=== PATIENT | female | born 1955 | race Caucasian/White ===

== ENCOUNTER 2016-10-22 14:57 | Inpatient (IN) | payer OTHER ==
[2016-10-22 14:57] VITALS: BMI 32.9
[2016-10-22] MEDS ORDERED: Sodium Chloride 0.9% 1,000 ML IV ONE ×2 (15:44)
--- NOTE | 2016-10-22 16:28 | RAD ---
HISTORY: Sepsis Patient COMPARISON: None available. TECHNIQUE: Chest, one view. FINDINGS: Examination limited by habitus. LUNGS: Interstitial prominence may reflect infection or edema. Left lower lobe consolidation and or pleural effusion. No definite pneumothorax. Please note that chest x-ray has limited sensitivity for the detection of pulmonary masses. CARDIOVASCULAR: Cardiomegaly. OSSEOUS STRUCTURES: No acute osseous abnormality identified. VISUALIZED UPPER ABDOMEN: Unremarkable. OTHER FINDINGS: None. IMPRESSION: Interstitial prominence may reflect infection or edema. Left lower lobe consolidation and or pleural effusion. Cardiomegaly.
[2016-10-22] MEDS ORDERED: Moxifloxacin IV 400mg/250ml NS 400 MG/250 ML BAG IVPB STA (16:38)
[2016-10-22] MEDS ORDERED: Cefepime IV 2 gm in Dextrose 2 GM/100 ML BAG IVPB STA (16:38)
[2016-10-22 16:40] LABS: VENOUS BLOOD GAS BASE EXCESS -1.1 mmol/L (0.0-2.0); VENOUS BLOOD GAS PCO2 34 mmHg (40-60); VENOUS BLOOD PH 7.43 (7.32-7.43)
--- NOTE | 2016-10-22 16:42 | C.PDOC ---
History Of Present Illness 61-year-old female, presents to the emergency department with complaints of fever. Patient states she was at Dr Power office, at the infusion center getting her first dose of chemotherapy for newly diagnosed metastatic breast CA , when she developed diaphoresis and weakness, resulting in her being brought to the ED for evaluation. Denies nausea/vomiting, dizziness, back pain, headaches, or any other associated symptoms. No other complaints at this time. Time Seen by Provider: 10/22/16 15:25 Chief Complaint (Nursing): Medical Clearance History Per: Patient History/Exam Limitations: no limitations Onset/Duration Of Symptoms: Hrs Current Symptoms Are (Timing): Still Present Severity: Moderate Reports Recently: Treated By A Physician Past Medical History Reviewed: Historical Data, Nursing Documentation, Vital Signs Vital Signs: Last Vital Signs Temp 98.5 F 10/22/16 17:30 Pulse 109 H 10/22/16 20:13 Resp 22 10/22/16 20:13 BP 140/90 10/22/16 20:13 Pulse Ox 98 10/22/16 20:13 - Medical History PMH: Arthritis, HTN Denies: End Stage Renal Disease, Chronic Kidney Disease Surgical History: Appendectomy - [facility] Procedures EXCISION OF RIGHT LOBE LIVER, PERCUTANEOUS APPROACH, DIAGN (06/15/16) Family History: States: No Known Family Hx - Social History Hx Alcohol Use: Yes Hx Substance Use: No - Immunization History Hx Tetanus Toxoid Vaccination: No Hx Influenza Vaccination: No Hx Pneumococcal Vaccination: No Review Of Systems Except As Marked, All Systems Reviewed And Found Negative. Constitutional: Positive for: Fever, Weakness Cardiovascular: Negative for: Chest Pain, Palpitations Respiratory: Negative for: Shortness of Breath Gastrointestinal: Negative for: Nausea, Vomiting Musculoskeletal: Negative for: Back Pain Neurological: Negative for: Numbness, Headache, Dizziness Physical Exam - Physical Exam Appears: Non-toxic, No Acute Distress Skin: Warm, Dry, No Rash Head: Atraumatic, Normacephalic Eye(s): bilateral: Normal Inspection Nose: Normal Oral Mucosa: Moist Lips: Normal Appearing Neck: Normal ROM Chest: Symmetrical Cardiovascular: Rhythm Regular, No Murmur Respiratory: Decreased Breath Sounds (B/L), No Accessory Muscle Use Gastrointestinal/Abdominal: Soft, No Tenderness Extremity: Normal ROM ED Course And Treatment - Laboratory Results Result Diagrams: 10/22/16 16:39 10/22/16 16:39 O2 Sat by Pulse Oximetry: 95 Medical Decision Making Medical Decision Making: Pt remained stable in the ED Discussed with dr Israel, pt had dramatic reaction in the infusion center, not likely due to the Chemo recommended medical admission CXR abnormal mass but with ?infiltrate above Cultures sent, abx maxipen and avalox ordered Post cefepine pt reported redness of the chest and back, no wheezing or itching Treated with benadryl Case discused with dr Cohen, pt admitted to hospitalist Disposition - Disposition Disposition: HOSPITALIZED Disposition Time: 19:43 Condition: FAIR - Clinical Impression Clinical Impression: Metastatic cancer to liver, Sepsis, Medication reaction - Scribe Statement The provider has reviewed the documentation as recorded by the Belindaibyvonne Tsang All medical record entries made by the Belindaibyvonne were at my direction and personally dictated by me. I have reviewed the chart and agree that the record accurately reflects my personal performance of the history, physical exam, medical decision making, and the department course for this patient. I have also personally directed, reviewed, and agree with the discharge instructions and disposition.
[2016-10-22 16:50] LABS: HEMATOCRIT 37.6 % (34.0-47.0); LYMPH # 0.3 K/uL (1.0-4.3); MEAN CELL VOLUME 92.5 fL (81.0-99.0); MEAN CORPUSCULAR HEMOGLOBIN 30.1 pg (27.0-31.0); MEAN CORPUSCULAR HGB CONC 32.5 g/dL (33.0-37.0); MEAN PLATELET VOLUME 9.3 fL (7.2-11.7); MONO # 0.2 K/uL (0.0-0.8); MONO % 1.9 % (0.0-10.0); PLATELET COUNT 200 K/uL (130-400); RED CELL DISTRIBUTION WIDTH 15.1 % (11.5-14.5); WHITE BLOOD COUNT 9.1 K/uL (4.8-10.8)
[2016-10-22 17:00] LABS: CHLORIDE 104 mmol/L (98-107)
[2016-10-22 17:01] LABS: POTASSIUM 3.9 mmol/L (3.6-5.2); SODIUM 135 mmol/L (132-148)
[2016-10-22 17:03] LABS: ALB/GLOB RATIO 0.8 (1.0-2.1); AST/SGOT 213 U/L (14-36); BILIRUBIN,TOTAL 0.7 mg/dL (0.2-1.3); BLOOD UREA NITROGEN 24 mg/dL (7-17); CARBON DIOXIDE 23 mmol/L (22-30); GFR AFRICAN-AMERICAN > 60; TOTAL PROTEIN 6.8 g/dL (6.3-8.3)
[2016-10-22 17:04] LABS: ALKALINE PHOSPHATASE 269 U/L (38-126); ALT/SGPT 113 U/L (9-52); CALCIUM 8.4 mg/dl (8.6-10.4); GLUCOSE,RANDOM 106 mg/dL (65-105)
[2016-10-22] MEDS ORDERED: Moxifloxacin IV 400mg/250ml NS 400 MG/250 ML BAG IVPB ONE (18:49)
[2016-10-22 18:57] LABS: LARGE PLATELETS PRESENT; NEUTROPHIL 92 % (50-75); SMUDGE CELLS PRESENT; TOTAL CELLS COUNTED 100
[2016-10-22] MEDS ORDERED: DiphenhydrAMINE 50 mg/ml Inj ONE (19:24)
[2016-10-22] MEDS ORDERED: DiphenhydrAMINE 50 mg/ml Inj IVP STA ×2 (19:26→19:37)
[2016-10-22 19:39] LABS: VENOUS BLOOD GAS BASE EXCESS -2.7 mmol/L (0.0-2.0); VENOUS BLOOD GAS PCO2 31 mmHg (40-60); VENOUS BLOOD PH 7.43 (7.32-7.43)
[2016-10-22 19:51] LABS: RBC URINE < 1 /hpf (0-3); URINE BACTERIA RARE (<OCC); URINE BILIRUBIN NEGATIVE (NEGATIVE); URINE BLOOD NEGATIVE (NEGATIVE); URINE COLOR Straw (YELLOW); URINE GLUCOSE (UA) NORMAL (Normal); URINE KETONE NEGATIVE (NEGATIVE); URINE LEUKOCYTE ESTERASE NEG Leu/uL (Negative); URINE PROTEIN NEGATIVE (NEGATIVE); URINE UROBILINOGEN NORMAL mg/dL (0.2-1.0); WBC URINE < 1 /hpf (0-5)
--- NOTE | 2016-10-22 19:59 | CP.PCM.HP ---
<Loulou Justin - Last Filed: 10/22/16 23:52> History of Present Illness - History of Present Illness History of Present Illness: CC: I felt weak HPI: 61 F PMHx of breast ca (dx 6 years ago) s/p L lumpectomy 2012 with mets to liver and spine, and HTN presents with diaphoresis and weakness that occurred when receiving chemotherapy at Dr. Power office. As per [facility] discharge note patient was admitted in June 2016 and found to have mets in T10 and L4 region on MRI and liver biopsy showed metastatic cancer- Patient was receiving radiation therapy at that time. This afternoon patient was at the [facility] receiving chemotherapy and began to feel hot, diaphoretic, and "shaky" and felt like her blood pressure was elevated. She was feeling lightheaded and weak and was told to come in to the ER. Patient denied any fever, chills, headache, dizziness, change in vision/hearing, sore throat, dysphagia, chest pain, palpitations, SOB, nausea, vomiting, bowel/bladder complaints, swelling in her legs, easy bruising/bleeding, weight/appetite changes. Patient admitted to having body aches and pain in her hips and back that she associates with her ca mets and rates 5/10. She also has a lot of "gas" and continuous burping that she is unable to control but does not have much flatus. Patient's last BM was day of admission and last meal was earlier in the day. Patient has also had a dry cough for the past day but no associated SOB. She admits to heat intolerance , lightheadedness, nonproductive cough, weakness, abdominal pain, leg pain, back pain, and a rash that developed in the ED after patient was given a bag of Cefepime [patient did not know she was allergic to cefepime]. She also had sick contacts at home as her daughter and grandchildren had a common cold. PMHx: breast ca (dx 6 years ago), liver ca with mets (dx 3 mo ago), HTN PSHx: L breast lumpectomy 2012 and ALL: Cefepime, honey, octopus Medications: omeprazole 40mg po daily, dexamethasone 4mg, protonix 40mg po daily Social Hx: denies EtOH, tobacco, drugs. Used to work at a home Family Hx: kidney and stomach ca [brother], breast ca [mother], CVA [father] [place] [facility] [place]D: doesn't know name ROS: Denies fever, chills, headache, dizziness, change in vision/hearing, sore throat, dysphagia, chest pain, palpitations, SOB, nausea, vomiting, bowel/ bladder complaints, swelling in her legs, easy bruising/bleeding, weight/ appetite changes. Admits heat intolerance, lightheadedness, nonproductive cough, weakness, abdominal pain, leg pain, back pain, and a rash that developed in the ED after patient was given a bag of Cefepime Present on Admission - Present on Admission Any Indicators Present on Admission: No Review of Systems - Constitutional Constitutional: As Per HPI, Weakness. absent: Chills, Fever, Weight Gain, Weight Loss - EENT Eyes: As Per HPI. absent: Change in Vision Ears: As Per HPI. absent: Tinnitus, Dizziness Nose/Mouth/Throat: absent: As Per HPI, Post Nasal Drip, Sore Throat - Cardiovascular Cardiovascular: As Per HPI. absent: Chest Pain, Dyspnea, Edema, Palpitations - Respiratory Respiratory: As Per HPI, Cough. absent: Dyspnea on Exertion, Wheezing, Chest Congestion - Gastrointestinal Gastrointestinal: As Per HPI, Abdominal Pain, Belching. absent: Constipation, Cramping, Diarrhea, Dysphagia, Excessive Flatus, Nausea, Vomiting - Genitourinary Genitourinary: As Per HPI. absent: Dysuria, Hematuria, Pyuria, Urinary Frequency - Musculoskeletal Musculoskeletal: As Per HPI, Back Pain, Myalgias. absent: Numbness, Tingling - Integumentary Integumentary: As Per HPI, Rash. absent: Dry Skin - Neurological Neurological: As Per HPI. absent: Confusion, Dizziness, Headaches, Syncope, Tingling - Psychiatric Psychiatric: As Per HPI. absent: Anxiety, Depression - Endocrine Endocrine: As Per HPI, Flushing. absent: Palpitations, Polydipsia, Polyphagia, Polyuria - Hematologic/Lymphatic Hematologic: As Per HPI. absent: Easy Bleeding, Easy Bruising, Lymphadenopathy Past Patient History - Past Social History Smoking Status: Current Some Days Smoker - CARDIAC Hx Hypertension: Yes - PULMONARY Hx Respiratory Disorders: No - NEUROLOGICAL Hx Neurological Disorder: No - HEENT Hx HEENT Problems: No - RENAL Hx Chronic Kidney Disease: No - ENDOCRINE/METABOLIC Hx Endocrine Disorders: No - HEMATOLOGICAL/ONCOLOGICAL Hx Blood Disorders: Yes Hx Cancer: Yes (Breast with mets to liver, Rt rib, spine) - INTEGUMENTARY Hx Dermatological Problems: No - MUSCULOSKELETAL/RHEUMATOLOGICAL Hx Arthritis: Yes - GASTROINTESTINAL Hx Gastrointestinal Disorders: Yes Hx Gastroesophageal Reflux: Yes - GENITOURINARY/GYNECOLOGICAL Hx Genitourinary Disorders: No - PSYCHIATRIC Hx Substance Use: No - SURGICAL HISTORY Hx Appendectomy: Yes - ANESTHESIA Hx Anesthesia: Yes Meds Allergies/Adverse Reactions: Allergies Allergy/AdvReac Type Severity Reaction Status Date / Time cefepime [From Maxipime] Allergy REDNESS Verified 10/22/16 19:29 honey Allergy Verified 10/22/16 15:18 octopus Allergy ANAPHYLAXIS Verified 06/14/16 21:46 Physical Exam - Constitutional Appears: Non-toxic, No Acute Distress - Head Exam Head Exam: ATRAUMATIC, NORMAL INSPECTION, NORMOCEPHALIC - Eye Exam Eye Exam: EOMI, Normal appearance, PERRL. absent: Conjunctival injection, Scleral icterus Pupil Exam: NORMAL ACCOMODATION, PERRL - ENT Exam ENT Exam: Mucous Membranes Moist - Neck Exam Neck exam: Positive for: Full Rom, Normal Inspection. Negative for: Lymphadenopathy, Tenderness - Respiratory Exam Respiratory Exam: Clear to Auscultation Bilateral, NORMAL BREATHING PATTERN. absent: Accessory Muscle Use, Rales, Rhonchi, Wheezes, Respiratory Distress - Cardiovascular Exam Cardiovascular Exam: Tachycardia, REGULAR RHYTHM, +S1, +S2. absent: Systolic Murmur - GI/Abdominal Exam GI & Abdominal Exam: Normal Bowel Sounds, Soft. absent: Distended, Firm, Guarding, Rigid, Tenderness - Extremities Exam Extremities exam: Positive for: normal capillary refill, normal inspection, pedal pulses present. Negative for: pedal edema, tenderness - Back Exam Back exam: NORMAL INSPECTION, rash noted (upper back erythematous). absent: CVA tenderness (L), CVA tenderness (R) - Neurological Exam Neurological exam: Alert, CN II-XII Intact, Oriented x3 - Psychiatric Exam Psychiatric exam: Normal Affect, Normal Mood - Skin Skin Exam: Dry, Erythema, Intact, Rash (drug rash on upper torso and upper back - sparing extremities and abdomen), Warm Results - Vital Signs Recent Vital Signs: Last Vital Signs Temp 98.5 F 10/22/16 17:30 Pulse 119 H 10/22/16 19:30 Resp 22 10/22/16 19:30 BP 150/96 H 10/22/16 19:30 Pulse Ox 95 10/22/16 19:44 - Labs Result Diagrams: 10/22/16 16:39 10/22/16 16:39 Assessment & Plan - Assessment and Plan (Free Text) Assessment: 61 F PMHx of breast ca (dx 6 years ago) s/p L lumpectomy 2012 with mets to liver and spine, and HTN presents with diaphoresis and weakness that occurred when receiving chemotherapy at Dr. Power office Plan: Weakness -likely secondary to infectious process -Temp on admission: 100.2F -CXR: interstitial prominence may reflect infection/edema. L lower lobe consolidation and/or pleural effusion. -procalcitonin: 5.07 -VBG lactate on admission 2.4 --> repeat 1.5 -f/u Chest CT w/o contrast -f/u blood cultures -f/u urine cultures -CTA : negative for PE -Avelox 400mg ivpb q24 -NS @ 100cc/hr Breast ca with mets -CT Abdomen/pelvis with IV contrast: findings within liver and bones consistent with diffuse mets -transaminitis likely secondary to mets AST 213 ALT 113 Alk Phos 269 -Heme/onc: Dr. Israel PPX -Heparin 5000u sc q12 -Protonix 40mg po daily -SCDs -Regular diet Case discussed with Dr. Roland Justin PGY1 <Deshawn Watkins P - Last Filed: 10/28/16 10:58> Results - Vital Signs Recent Vital Signs: Last Vital Signs Temp 98.4 F 10/27/16 15:00 Pulse 94 H 10/27/16 15:00 Resp 20 10/27/16 15:00 BP 128/81 10/27/16 15:00 Pulse Ox 95 10/27/16 15:00 - Labs Result Diagrams: 10/27/16 06:21 10/27/16 06:21 Attending/Attestation - Attestation I have personally seen and examined this patient.: Yes I have fully participated in the care of the patient.: Yes I have reviewed all pertinent clinical information: Yes
[2016-10-22] MEDS: Moxifloxacin IV 400mg/250ml NS 400 MG/250 ML BAG IVPB SCH (21:46)
[2016-10-22] MEDS ORDERED: Iodixanol 320 MG/ML 100 ML BOTTLE IV ONE (22:00)
--- NOTE | 2016-10-22 22:49 | CT ---
EXAM: CT Angiography Chest With Intravenous Contrast CLINICAL HISTORY: 61 years old, female; Pain; Chest pain; Type not specified; Patient HX: Breast ca; Additional info: R/O pe TECHNIQUE: Axial computed tomographic angiography images of the chest with intravenous contrast using pulmonary embolism protocol. This CT exam was performed using one or more of the following dose reduction techniques: automated exposure control, adjustment of the mA and/or kV according to patient size, and/or use of iterative reconstruction technique. MIP reconstructed images were created and reviewed. Coronal and sagittal reformatted images were created and reviewed. CONTRAST: 100 mL of VISIPAQUE 320 administered intravenously. COMPARISON: No relevant prior studies available. FINDINGS: Pulmonary arteries: No pulmonary embolism. Aorta: No thoracic aortic aneurysm. Lungs: Moderate left-sided pleural effusion, with adjacent compressive atelectasis. Innumerable subcentimeter nodules within the bilateral lung martinez (left greater than right) suggesting metastatic disease. Pleural spaces: As above. Heart: No cardiomegaly. No significant pericardial effusion. No evidence of right heart dysfunction. Bones: No acute fracture. Expansile lesion is identified within the posterior right 10th rib and the lateral right fourth rib. Lymph nodes: Multiple mediastinal lymph nodes identified, the largest within the aortopulmonary window measuring 16 mm in short axis dimension. The or IMPRESSION: No pulmonary embolism. Findings within both the lungs and bones suggesting metastatic disease. Moderate left-sided pleural effusion, with adjacent compressive atelectasis.
[2016-10-22] MEDS: Sodium Chloride 0.9% 1,000 ML IV SCH (23:07)
--- NOTE | 2016-10-22 23:08 | CT ---
EXAM: CT Abdomen and Pelvis With Intravenous Contrast CLINICAL HISTORY: 61 years old, female; Pain; Abdominal pain; Flank; Right upper quadrant (ruq); Additional info: Elevated lfts TECHNIQUE: Axial computed tomography images of the abdomen and pelvis with intravenous contrast. This CT exam was performed using one or more of the following dose reduction techniques: automated exposure control, adjustment of the mA and/or kV according to patient size, and/or use of iterative reconstruction technique. Coronal and sagittal reformatted images were created and reviewed. CONTRAST: 0 mL of VISIPAQUE 320 administered intravenously. COMPARISON: No relevant prior studies available. FINDINGS: Lower thorax: Moderate left-sided pleural effusion, with adjacent compressive atelectasis. Again identified are innumerable pulmonary parenchymal nodules, better evaluated on the CT examination of the chest. In addition, expansile lytic lesions within the right lower ribs. ABDOMEN: Liver: Multiple areas of decreased attenuation are identified within the liver, findings consistent with metastatic disease. Gallbladder and bile ducts: The gallbladder is decompressed, without calcified stones. No significant intra- or extrahepatic biliary ductal dilation. Pancreas: Enhances homogeneously. No ductal dilation. No discrete mass. Spleen: No acute findings. Adrenals: No acute findings. Kidneys and ureters: No acute findings. No hydronephrosis or renal calculi. No discrete solid mass. PELVIS: Bladder: No acute findings. Reproductive: No acute findings. Appendix: The appendix is of normal caliber (series 3, image 112). ABDOMEN and PELVIS: Stomach and bowel: No obstruction. No mucosal thickening. Peritoneum: No significant fluid collection. No free air. Lymph nodes: No pathologically enlarged lymph nodes. Vasculature: Calcified atherosclerotic disease. Bones: Multiple lytic lesions within the right hemipelvis, and sacrum. Multiple lytic and blastic lesions are identified throughout the lumbosacral spine, as well as within the lower thoracic spine. This is most prominent at the levels of L4, L2 and T10. IMPRESSION: Findings within the both the liver, and bones consistent with diffuse metastatic disease, as detailed above.
[2016-10-23 01:22] VITALS: RESP 20
[2016-10-23 06:14] LABS: BASO % 0.1 % (0.0-2.0); EOS % 0.2 % (0.0-4.0); HEMATOCRIT 34.5 % (34.0-47.0); LYMPH # 0.7 K/uL (1.0-4.3); LYMPH % 8.8 % (20.0-40.0); MEAN CELL VOLUME 91.9 fL (81.0-99.0); MEAN CORPUSCULAR HEMOGLOBIN 30.6 pg (27.0-31.0); MEAN CORPUSCULAR HGB CONC 33.3 g/dL (33.0-37.0); MEAN PLATELET VOLUME 9.2 fL (7.2-11.7); MONO # 0.3 K/uL (0.0-0.8); MONO % 3.9 % (0.0-10.0); PLATELET COUNT 175 K/uL (130-400); RED CELL DISTRIBUTION WIDTH 15.2 % (11.5-14.5); WHITE BLOOD COUNT 8.4 K/uL (4.8-10.8)
[2016-10-23 06:45] LABS: CHLORIDE 106 mmol/L (98-107); POTASSIUM 3.9 mmol/L (3.6-5.2); SODIUM 137 mmol/L (132-148)
[2016-10-23 06:47] LABS: BILIRUBIN,TOTAL 0.6 mg/dL (0.2-1.3); GFR AFRICAN-AMERICAN > 60
[2016-10-23 06:48] LABS: ALB/GLOB RATIO 0.7 (1.0-2.1); ALKALINE PHOSPHATASE 230 U/L (38-126); ALT/SGPT 103 U/L (9-52); AST/SGOT 182 U/L (14-36); BLOOD UREA NITROGEN 18 mg/dL (7-17); CALCIUM 7.8 mg/dl (8.6-10.4); CARBON DIOXIDE 24 mmol/L (22-30); GLUCOSE,RANDOM 101 mg/dL (65-105); PHOSPHOROUS 3.3 mg/dL (2.5-4.5); TOTAL PROTEIN 6.2 g/dL (6.3-8.3)
[2016-10-23 06:49] LABS: MAGNESIUM 1.7 mg/dL (1.6-2.3)
--- NOTE | 2016-10-23 07:22 | CP.PCM.PN ---
<Rebecca Jimenez - Last Filed: 10/23/16 13:13> Subjective - Date & Time of Evaluation Date of Evaluation: 10/23/16 Time of Evaluation: 07:18 - Subjective Subjective: Patient seen and examined at bedside. Patient reports coughing since yesterday is still present. She denies fever/chills overnight but admits to fever yesterday during chemotherapy. She continues to feel weak. Patient admits to pain to left breast. She states she has intermittent pain with walking due to bone mets. Patient also states she has belching present since she was treated with radiotherapy. She denies shortness of breath, palpitations, abdominal pain , vomiting, constipation, diarrhea, dysuria and lower extremity swelling. Patient admits to mild nausea. She states she typically eats small meals. Objective - Vital Signs/Intake and Output Vital Signs (last 24 hours): Temp Pulse Resp BP Pulse Ox 98.5 F 100 H 20 145/88 98 10/23/16 00:00 10/23/16 00:00 10/23/16 00:00 10/23/16 00:00 10/23/16 01:05 Intake and Output: 10/23/16 10/23/16 06:59 18:59 Intake Total 980 Balance 980 - Medications Medications: Current Medications Heparin Sodium (Porcine) (Heparin) 5,000 units SC Q12 [facility] Last Admin: 10/22/16 23:06 Dose: 5,000 units Moxifloxacin HCl (Avelox Iv 400mg/250ml Ns) 400 mg in 250 mls @ 167 mls/hr IVPB Q24H [facility] Last Admin: 10/22/16 21:46 Dose: Not Given Sodium Chloride (Sodium Chloride 0.9%) 1,000 mls @ 100 mls/hr IV .Q10H [facility] Last Admin: 10/22/16 23:07 Dose: 100 mls/hr Pantoprazole Sodium (Protonix Ec Tab) 40 mg PO DAILY [facility] - Labs Labs: 10/23/16 05:58 10/23/16 05:58 PT 10.7 SECONDS (9.7-12.2) 10/22/16 16:39 INR 1.0 10/22/16 16:39 APTT 26 SECONDS (21-34) 10/23/16 05:58 - Constitutional Appears: Non-toxic, No Acute Distress - Head Exam Head Exam: ATRAUMATIC, NORMAL INSPECTION, NORMOCEPHALIC - Eye Exam Eye Exam: EOMI, Normal appearance, PERRL - ENT Exam ENT Exam: Mucous Membranes Moist - Respiratory Exam Respiratory Exam: Decreased Breath Sounds. absent: Rales, Rhonchi, Wheezes Additional comments: decreased breath sounds to left lung martinez - Cardiovascular Exam Cardiovascular Exam: Tachycardia, +S1, +S2. absent: Bradycardia - GI/Abdominal Exam GI & Abdominal Exam: Soft, Normal Bowel Sounds. absent: Guarding, Rigid, Tenderness - Extremities Exam Extremities Exam: Normal Inspection. absent: Pedal Edema, Tenderness - Neurological Exam Neurological Exam: Alert, Awake, Oriented x3 - Psychiatric Exam Psychiatric exam: Normal Affect, Normal Mood Assessment and Plan - Assessment and Plan (Free Text) Assessment: Weakness -Temp on admission: 100.2F. Currently afebrile -Chest CT w/o contrast: Lungs and bones suggest metastatic disease. Innumerable subcentimeter nodules to bilateral lungs, L>R. Moderate left sided pleural effusion (see full report) -CXR: interstitial prominence may reflect infection/edema. L lower lobe consolidation and/or pleural effusion. -Thoracentesis performed today - 500cc straw colored fluid. Pleural fluid sent for cytology, cell differentiation, LDH, total protein, albumin, amylase, CEA -procalcitonin: 5.07. Will recheck procalcitonin, -VBG lactate on admission 2.4 --> repeat 1.5 -f/u blood cultures -urine cultures - no growth -UA: negative -CTA : negative for PE -Avelox 400mg ivpb q24 -NS @ 100cc/hr Breast ca with mets -CT Abdomen/pelvis with IV contrast: findings within liver and bones consistent with diffuse mets -transaminitis likely secondary to mets AST 182 ALT 103 Alk Phos 230 -Palliative Care Consult -Heme/onc: Dr. Israel PPX -Heparin 5000u sc q12 -Protonix 40mg po daily -SCDs -Regular diet -PT/OT <Cesar Gill H - Last Filed: 10/23/16 16:41> Objective - Vital Signs/Intake and Output Vital Signs (last 24 hours): Temp Pulse Resp BP Pulse Ox 98.6 F 81 20 154/89 H 97 10/23/16 08:01 10/23/16 08:01 10/23/16 08:01 10/23/16 08:01 10/23/16 08:01 Intake and Output: 10/23/16 10/23/16 06:59 18:59 Intake Total 980 Balance 980 - Medications Medications: Current Medications Moxifloxacin HCl (Avelox Iv 400mg/250ml Ns) 400 mg in 250 mls @ 167 mls/hr IVPB Q24H [facility] Last Admin: 10/22/16 21:46 Dose: Not Given Sodium Chloride (Sodium Chloride 0.9%) 1,000 mls @ 100 mls/hr IV .Q10H [facility] Last Admin: 10/23/16 09:27 Dose: Not Given Morphine Sulfate (Morphine) 1 mg IVP Q4 PRN PRN Reason: Pain, moderate (4-7) Last Admin: 10/23/16 13:44 Dose: 1 mg Ondansetron HCl (Zofran Inj) 4 mg IVP Q6H PRN PRN Reason: Nausea/Vomiting Pantoprazole Sodium (Protonix Ec Tab) 40 mg PO DAILY [facility] Last Admin: 10/23/16 11:23 Dose: 40 mg - Labs Labs: 10/23/16 05:58 10/23/16 05:58 PT 10.7 SECONDS (9.7-12.2) 10/22/16 16:39 INR 1.0 10/22/16 16:39 APTT 26 SECONDS (21-34) 10/23/16 05:58 Attending/Attestation - Attestation I have personally seen and examined this patient.: Yes I have fully participated in the care of the patient.: Yes I have reviewed all pertinent clinical information, including history, physical exam and plan: Yes Notes (Text): 10/23/16 16:39 Medical attending: Patient was seen and examined by me, agrees the above note by medical staff director. The patient explains that she's been short of breath for some time, and she has dyspnea on exertion as well as coughing. Review of the CAT scan shows that she does have a pleural effusion on the left-hand side. When we saw her in the morning there were already orders for a thoracentesis to be done reporting additional orders for cytology sputum culture and further analysis of the fluid. Later on the afternoon I learned that 500 mL was removed, at this time were to see how the patient does after this. Were continue with the IV anti-biotics. She is on slow intravenous fluids and recheck further chest imaging tomorrow as well Thank you very much, Cesar Gill
[2016-10-23 08:14] LABS: EOSINOPHIL 1 % (0-4); NEUTROPHIL 89 % (50-75); TOTAL CELLS COUNTED 100
--- NOTE | 2016-10-23 09:23 | CON ---
DATE: 10/23/2016 This is a 61-year-old lady with breast cancer, metastatic to her bones and to her liver. In 2011, debra russell had her mastectomy, which found a 2.5 cm cancer, positive lymph node, ER positive, PA negative and HER-2 +3. She received in [place] a mastectomy followed by radiation therapy followed by Aromasin ch emotherapy; however, she really did not get the chemotherapy and she really did not take the Aromasin . She was lost to followup, until she came to [place] and 08/10/2016 I saw her then and she was i n severe pain through her lumbar spine. At that time, we gave her radiation therapy to the lumbar sp ine. In 10/22/2016 she had her first dose of Perjeta and Herceptin. So, she was being treated after the radiation therapy with hormonal agents including Faslodex but she did not respond, her cancer wa s progressing and so yesterday we started her on her first dose of Perjeta and Herceptin chemotherapy . She took it well, but at the very end of the procedure, she started developing shaking chills and started developing a fever. The blood pressure started dropping from about 160/102 to about 110 syst olic and she was starting to get cold and clammy. We called the ambulance and we brought her to the hospital here. PHYSICAL EXAMINATION: SKIN: No petechiae, no bruises. HEENT: Anicteric. NODES: None palpable in the axillary, cervical, supraclavicular or inguinal regions. LUNGS: Show no vertebral tenderness. There are decreased breath sounds bilaterally. HEART: S1, S2, no irregular heart rhythm. ABDOMEN: Shows severe tenderness in the right upper quadrant and you can feel the liver metastases w ith a mass, but no ascites, no rebound. EXTREMITIES: No edema. CENTRAL NERVOUS SYSTEM: No focal finding. 1. So at this point, we are ruling out a septic event. We are waiting for blood cultures while she is on her antibiotics. 2. She is short of breath all the time. There is a large pleural effusion on the CT scan that was j ust done. The CT scan yesterday is revealing a left-sided pleural effusion with atelectasis, innumer able parenchymal nodules in the lung, expansile lytic lesions in the right lower ribs and multiple ar eas of liver metastases. So at this point while she is here in the hospital, we are going to see if interventional radiology can do a thoracentesis and see if we can help her breathe. So at this point , we are going to do that. 3. She absolutely needs to have a social service evaluation to get Medicaid. We are able to get her medicines and her chemotherapy in the office for free, but she absolutely has to get Medicaid and debra russell was scheduled to go to the Medicaid office today this morning, but she is now in the hospital and I want to see if we can try and push that through. 4. I stopped the heparin, it is prophylaxis anyway, because I want to have her go for the procedure later on today if possible. Dimitris Israel MD cc: [id number] TT: 10/23/2016 09:21:53 Confirmation # [id number] Dictation # [id number] luis alberto
[2016-10-23] MEDS: Sodium Chloride 0.9% 1,000 ML IV SCH ×2 (09:27→17:44)
[2016-10-23] MEDS: Pantoprazole 40 mg EC Tab PO SCH (11:23)
--- NOTE | 2016-10-23 11:45 | US ---
PROCEDURE: Date of procedure: 10/23/2016 Procedure: 1. Ultrasound-guided left thoracentesis, CPT 73485 Medications: 7cc 1% Lidocaine HISTORY: Left pleural effusion, shortness of breath TECHNIQUE: Following informed consent ,the Patients' left chest was marked. Procedure time-out was called, and the patient was placed in the sitting position and limited ultrasound showed a moderate left effusion. The patient's left back was prepped and draped in the usual sterile fashion. After the skin was anesthetized with lidocaine, a drainage catheter was advanced under ultrasound guidance into the pleural space. Ultrasound-guided thoracentesis was performed. A total of 500 cubic centimeters of straw-colored fluid removed without complication. A Xeroform dressing was applied. IMPRESSION: Ultrasound guided left thoracentesis. There were no immediate complications.
[2016-10-23 12:47] LABS: BODY FLUID TYPE PLEURAL/THORACENTESI
--- NOTE | 2016-10-23 13:09 | PCM.SURG1 ---
Surgeon's Initial Post Op Note - Surgeon's Notes Surgeon: Alfonso Baum MD [employer]: NONE Type of Anesthesia: Local Pre-Operative Diagnosis: Left pleural effusion Operative Findings: US showed moderate left effusion Post-Operative Diagnosis: Left pleural effusion Operation Performed: US guided left thoracentesis. Specimen/Specimens Removed: 500 cc of straw colored fluid Estimated Blood Loss: EBL {In ML}: 0 Blood Products Given: N/A Drains Used: No Drains Post-Op Condition: Fair Date of Surgery/Procedure: 10/23/16 Time of Surgery/Procedure: 11:45
[2016-10-23 13:44] LABS: BF GROSS APPEARANCE SL CLOUDY (CLEAR); BODY FLUID TOTAL COUNT 100 (0-0)
--- NOTE | 2016-10-23 16:27 | CP.PCM.CON ---
History of Present Illness - History of Present Illness History of Present Illness: Palliative consult Requested by Katiuska RHODES Reason: goals of care, code status Patient is a 61 yo lady admitted with fever and diaphoresis while in Infusion center. Patient was in remission from breast cancer for 6 years. Now is diagnosed with mets to liver and lungs, confirmed by CT scan and 1st round of chemo started by Doctor Jhonatan. PMH: breast CA 6 years ago, arthritis, HTN, Soc. Hx: , lives at home with her daughter and her 4 grandchildren Fam Hx: brother from cancer Review of Systems - Constitutional Constitutional: Fatigue - EENT Eyes: absent: As Per HPI, Blind Spots, Blurred Vision, Change in Vision, Decreased Night Vision, Diplopia, Discharge, Dry Eye, Exophthalmos, Floaters, Irritation, Itchy Eyes, Loss of Peripheral Vision, Pain, Photophobia, Requires Corrective Lenses, Sees Flashes, Spots in Vision, Tunnel Vision, Other Visual Disturbances, Loss of Vision, Other Ears: absent: As Per HPI, Decreased Hearing, Ear Discharge, Ear Pain, Tinnitus, Abnormal Hearing, Disequilibrium, Dizziness, Other Nose/Mouth/Throat: absent: As Per HPI, Epistaxis, Nasal Congestion, Nasal Discharge, Nasal Obstruction, Nasal Trauma, Nose Pain, Post Nasal Drip, Sinus Pain, Sinus Pressure, Bleeding Gums, Change in Voice, Dental Pain, Dry Mouth, Dysphagia, Halitosis, Hoarsness, Lip Swelling, Mouth Lesions, Mouth Pain, Odynophagia, Sore Throat, Throat Swelling, Tongue Swelling, Facial Pain, Neck Pain, Neck Mass, Other - Breasts Breasts: absent: As Per HPI, Change in Shape, Mass, Pain, Nipple Discharge, Nipple Inversion, Skin Changes, Swelling, Other - Cardiovascular Cardiovascular: absent: As Per HPI, Acrocyanosis, Chest Pain, Chest Pain at Rest , Chest Pain with Activity, Claudication, Diaphoresis, Dyspnea, Dyspnea on Exertion, Edema, Irregular Heart Rhythm, Pain Radiating to Arm/Neck/Jaw, Leg Edema, Leg Ulcers, Lightheadedness, Orthopnea, Palpitations, Paroxysmal Nocturnal Dyspnea, Pedal Edema, Radiating Pain, Rapid Heart Rate, Slow Heart Rate, Syncope, Other - Respiratory Respiratory: Dyspnea on Exertion - Gastrointestinal Gastrointestinal: Belching, Bloating - Genitourinary Genitourinary: absent: As Per HPI, Change in Urinary Stream, Difficulty Urinating, Dysuria, Flank Pain, Hematuria, Pyuria, Nocturia, Urinary Incontinence, Urinary Frequency, Urinary Hesitance, Urinary Urgency, Voiding Freq/Small Amts, Freq UTI, Hx Renal/Bladder Calculi, Hx /Renal Surgery, Bladder Distension, Other - Reproductive: Female Reproductive:Female: Post Menopausal - Menstruation Menstruation: Post Menopausal - Musculoskeletal Musculoskeletal: Muscle Weakness - Integumentary Integumentary: absent: As Per HPI, Acne, Alopecia, Bleeding Lesions, Change in Hair, Change in Nails, Change in Pigmentation, Changing Lesions, Dry Skin, Erythema, Furuncle, Hirsutism, Lesions, New Lesions, Non-Healing Lesions, Photosensitivity, Pruritus, Rash, Skin Pain, Skin Ulcer, Sores, Striae, Swelling , Unusual Bruising, Wounds, Jaundice, Other - Neurological Neurological: absent: As Per HPI, Abnormal Gait, Abnormal Hearing, Abnormal Movements, Abnormal Speech, Behavioral Changes, Burning Sensations, Confusion, Convulsions, Disequilibrium, Dizziness, Numbness, Focal Weakness, Frequent Falls , Headaches, Lack of Coordination, Loss of Vision, Memory Loss, Paresthesias, Radicular Pain, Restless Legs, Sensory Deficit, Syncope, Tingling, Tremor, Vertigo, Weakness, Other Visual Disturbances, Other - Psychiatric Psychiatric: absent: As Per HPI, Abnormal Sleep Pattern, Anhedonia, Anxiety, Auditory Hallucinations, Behavioral Changes, Change in Appetite, Change in Libido, Confusion, Depression, Difficulty Concentrating, Hallucinations, Homicidal Ideation, Hopelessness, Irritability, Memory Loss, Mood Swings, Panic Attacks, Paranoia, Suicidal Ideation, Visual Hallucinations, Tactile Hallucinations, Other - Endocrine Endocrine: absent: As Per HPI, Change in Body Appearance, Change in Libido, Cold Intolorance, Deepening of Voice, Excessive Sweating, Fatigue, Flushing, Heat Intolorance, Increase in Ring/Shoe/Hat Size, Palpitations, Polydipsia, Polyphagia, Polyuria, Other - Hematologic/Lymphatic Hematologic: absent: As Per HPI, Easy Bleeding, Easy Bruising, Lymphadenopathy, Other Past Patient History - Past Medical History & Family History Past Medical History?: Yes - Past Social History Smoking Status: Unknown If Ever Smoked - CARDIAC Hx Cardiac Disorders: Yes Hx Hypertension: Yes - PULMONARY Hx Respiratory Disorders: No - NEUROLOGICAL Hx Neurological Disorder: No - HEENT Hx HEENT Problems: No - RENAL Hx Chronic Kidney Disease: No - ENDOCRINE/METABOLIC Hx Endocrine Disorders: No - HEMATOLOGICAL/ONCOLOGICAL Hx Blood Disorders: Yes Hx Cancer: Yes (Breast with mets to liver, Rt rib, spine) - INTEGUMENTARY Hx Dermatological Problems: No - MUSCULOSKELETAL/RHEUMATOLOGICAL Hx Musculoskeletal Disorders: Yes Hx Arthritis: Yes Hx Falls: No - GASTROINTESTINAL Hx Gastrointestinal Disorders: Yes Hx Gastroesophageal Reflux: Yes - GENITOURINARY/GYNECOLOGICAL Hx Genitourinary Disorders: No - PSYCHIATRIC Hx Psychophysiologic Disorder: No Hx Substance Use: No - SURGICAL HISTORY Hx Surgeries: Yes Hx Appendectomy: Yes - ANESTHESIA Hx Anesthesia: Yes Hx Anesthesia Reactions: No Hx Malignant Hyperthermia: No Has any member of the family had a problem w/ anesthesia?: No Meds Allergies/Adverse Reactions: Allergies Allergy/AdvReac Type Severity Reaction Status Date / Time cefepime [From Maxipime] Allergy REDNESS Verified 10/22/16 19:29 honey Allergy Verified 10/22/16 15:18 octopus Allergy ANAPHYLAXIS Verified 06/14/16 21:46 - Medications Medications: Current Medications Moxifloxacin HCl (Avelox Iv 400mg/250ml Ns) 400 mg in 250 mls @ 167 mls/hr IVPB Q24H [facility] Last Admin: 10/22/16 21:46 Dose: Not Given Sodium Chloride (Sodium Chloride 0.9%) 1,000 mls @ 100 mls/hr IV .Q10H [facility] Last Admin: 10/23/16 09:27 Dose: Not Given Morphine Sulfate (Morphine) 1 mg IVP Q4 PRN PRN Reason: Pain, moderate (4-7) Last Admin: 10/23/16 13:44 Dose: 1 mg Ondansetron HCl (Zofran Inj) 4 mg IVP Q6H PRN PRN Reason: Nausea/Vomiting Pantoprazole Sodium (Protonix Ec Tab) 40 mg PO DAILY [facility] Last Admin: 10/23/16 11:23 Dose: 40 mg Physical Exam - Constitutional Appears: Chronically Ill - Head Exam Head Exam: ATRAUMATIC, NORMAL INSPECTION, NORMOCEPHALIC - Eye Exam Eye Exam: EOMI, Normal appearance, PERRL Pupil Exam: NORMAL ACCOMODATION, PERRL - ENT Exam ENT Exam: Mucous Membranes Moist, Normal Exam - Neck Exam Neck exam: Positive for: Normal Inspection - Respiratory Exam Respiratory Exam: Decreased Breath Sounds, NORMAL BREATHING PATTERN - Cardiovascular Exam Cardiovascular Exam: REGULAR RHYTHM - GI/Abdominal Exam GI & Abdominal Exam: Distended, Hypoactive Bowel Sounds - Rectal Exam Rectal Exam: Deferred - Extremities Exam Extremities exam: Positive for: normal inspection - Back Exam Back exam: NORMAL INSPECTION - Neurological Exam Neurological exam: Alert, Oriented x3 - Psychiatric Exam Psychiatric exam: Normal Affect, Normal Mood - Skin Skin Exam: Normal Color Results - Vital Signs Recent Vital Signs: Last Vital Signs Temp 98.6 F 10/23/16 08:01 Pulse 81 10/23/16 08:01 Resp 20 10/23/16 08:01 BP 154/89 H 10/23/16 08:01 Pulse Ox 97 10/23/16 08:01 - Labs Result Diagrams: 10/23/16 05:58 10/23/16 05:58 Labs: Laboratory Results - last 24 hr 10/22/16 10/23/16 10/23/16 22:08 05:58 05:58 WBC 8.4 RBC 3.75 L Hgb 11.5 Hct 34.5 MCV 91.9 MCH 30.6 MCHC 33.3 RDW 15.2 H Plt Count 175 MPV 9.2 Neut % (Auto) 87.0 H Lymph % (Auto) 8.8 L [place] % (Auto) 3.9 Eos % (Auto) 0.2 Baso % (Auto) 0.1 Neut # 7.3 H Lymph # 0.7 L [place] # 0.3 Eos # 0.0 Baso # 0.0 Neutrophils % (Manual) 89 H Lymphocytes % (Manual) 10 L Monocytes % (Manual) TEST NOT PERFORMED Eosinophils % (Manual) 1 Platelet Estimate Normal Anisocytosis (manual) Slight APTT Sodium 137 Potassium 3.9 Chloride 106 Carbon Dioxide 24 Anion Gap 12 BUN 18 H Creatinine 0.7 Est GFR ( Amer) > 60 Est GFR (Non-Af Amer) > 60 Random Glucose 101 Calcium 7.8 L Phosphorus 3.3 Magnesium 1.7 Total Bilirubin 0.6 AST 182 H ALT 103 H Alkaline Phosphatase 230 H Total Protein 6.2 L Albumin 2.6 L Globulin 3.6 Albumin/Globulin Ratio 0.7 L Procalcitonin 5.07 H Fluid Source Fluid Appearance Fluid WBC Fluid RBC Fluid Tot Cell Count Fluid Neutrophils Fluid Lymphocytes Fld Monocyte/Macrophag Fluid Diff Path Review Fluid Comment 10/23/16 10/23/16 05:58 12:46 WBC RBC Hgb Hct MCV MCH MCHC RDW Plt Count MPV Neut % (Auto) Lymph % (Auto) [place] % (Auto) Eos % (Auto) Baso % (Auto) Neut # Lymph # [place]ord # Eos # Baso # Neutrophils % (Manual) Lymphocytes % (Manual) Monocytes % (Manual) Eosinophils % (Manual) Platelet Estimate Anisocytosis (manual) APTT 26 Sodium Potassium Chloride Carbon Dioxide Anion Gap BUN Creatinine Est GFR ( Amer) Est GFR (Non-Af Amer) Random Glucose Calcium Phosphorus Magnesium Total Bilirubin AST ALT Alkaline Phosphatase Total Protein Albumin Globulin Albumin/Globulin Ratio Procalcitonin Fluid Source Pleural/thoracentesi Fluid Appearance Sl cloudy Fluid WBC 341.0 H Fluid RBC 3885.0 H Fluid Tot Cell Count 100 H Fluid Neutrophils 35.0 H Fluid Lymphocytes 61.0 H Fld Monocyte/Macrophag 4 H Fluid Diff Path Review Fluid Comment Assessment & Plan - Assessment and Plan (Free Text) Assessment: Palliative consult Code status prior to admission , Full Code, no advance directive on chart, PPS 30% I reviewed medical records, all diagnostic studies, examined and interviewed. Code status discussed. POLST completed Patient is alert, oriented X 3 in no acute distress with affect that is appropriate. S/P thoracentesis. Abdominal distenton. Patient burps constantly, saying that has been going on for while. Complains of right shoulder pain radiating down to right hip. Reports right leg edema while at home, resolved now. Goals of care discussed. Patient fully aware of her diagnosis and prognosis. " Doctor Jhonatan told me it is bad". I further discussed what were patient's expectations. Her main goal is her comfort. Patient stated she accepted her alyssa . Strong preferences regarding end of life care. patient was clear that she would want all ordinary measures including the chemo Tx. If her condition worsens and meaningful recovery was not expected, she would want to be allowed natural . patient made no surrogate decision maker. POLST signed. Impression * This is a very unfortunate lady with metastasis disease, fully aware of it * Patient has accepted her prognosis and prefers comfort over longevity * Right shoulder pain radiating down to right hip * Distended abdomen, denies constipation Suggestion * Agree with DNR/DNI * POLST on chart * Would consider Morphine Iv for pain * Discharge planing Thank you very much for consulting palliative care
[2016-10-23] MEDS: Moxifloxacin IV 400mg/250ml NS 400 MG/250 ML BAG IVPB SCH (21:16)
[2016-10-24 06:18] LABS: BASO % 0.2 % (0.0-2.0); EOS % 0.6 % (0.0-4.0); HEMATOCRIT 35.1 % (34.0-47.0); LYMPH # 0.8 K/uL (1.0-4.3); LYMPH % 13.9 % (20.0-40.0); MEAN CORPUSCULAR HEMOGLOBIN 30.1 pg (27.0-31.0); MEAN PLATELET VOLUME 9.1 fL (7.2-11.7); MONO # 0.3 K/uL (0.0-0.8); MONO % 4.5 % (0.0-10.0); RED CELL DISTRIBUTION WIDTH 15.3 % (11.5-14.5); WHITE BLOOD COUNT 5.7 K/uL (4.8-10.8)
[2016-10-24 06:36] LABS: CHLORIDE 101 mmol/L (98-107)
[2016-10-24 06:37] LABS: POTASSIUM 3.8 mmol/L (3.6-5.2); SODIUM 133 mmol/L (132-148)
[2016-10-24 06:39] LABS: ALB/GLOB RATIO 0.9 (1.0-2.1); ALKALINE PHOSPHATASE 221 U/L (38-126); AST/SGOT 137 U/L (14-36); BILIRUBIN,TOTAL 0.7 mg/dL (0.2-1.3); BLOOD UREA NITROGEN 15 mg/dL (7-17); CARBON DIOXIDE 23 mmol/L (22-30); GFR AFRICAN-AMERICAN > 60; TOTAL PROTEIN 5.8 g/dL (6.3-8.3)
[2016-10-24 06:40] LABS: ALT/SGPT 82 U/L (9-52); CALCIUM 7.9 mg/dl (8.6-10.4); GLUCOSE,RANDOM 92 mg/dL (65-105); MAGNESIUM 1.7 mg/dL (1.6-2.3)
[2016-10-24] MEDS: Pantoprazole 40 mg EC Tab PO SCH (09:01)
--- NOTE | 2016-10-24 09:53 | CP.PCM.PN ---
<DanielBina Kim - Last Filed: 10/24/16 09:36> Subjective - Date & Time of Evaluation Date of Evaluation: 10/24/16 Time of Evaluation: 06:30 - Subjective Subjective: PGY2 Medicine note - Dr. Gill's service: Patient seen and examined at bedside this AM. Patient reports continued cough. Otherwise she has no complaints. Objective - Vital Signs/Intake and Output Vital Signs (last 24 hours): Temp Pulse Resp BP Pulse Ox 99 F 97 H 20 120/75 95 10/24/16 00:00 10/24/16 00:00 10/24/16 00:00 10/24/16 00:00 10/24/16 00:00 Intake and Output: 10/24/16 10/24/16 06:59 18:59 Intake Total 1200 240 Balance 1200 240 - Medications Medications: Current Medications Guaifenesin (Robitussin) 100 mg PO Q4H PRN PRN Reason: Cough Moxifloxacin HCl (Avelox Iv 400mg/250ml Ns) 400 mg in 250 mls @ 167 mls/hr IVPB Q24H [facility] Last Admin: 10/23/16 21:16 Dose: 167 mls/hr Morphine Sulfate (Morphine) 1 mg IVP Q4 PRN PRN Reason: Pain, moderate (4-7) Last Admin: 10/23/16 19:51 Dose: 1 mg Ondansetron HCl (Zofran Inj) 4 mg IVP Q6H PRN PRN Reason: Nausea/Vomiting Last Admin: 10/23/16 19:51 Dose: 4 mg Pantoprazole Sodium (Protonix Ec Tab) 40 mg PO DAILY [facility] Last Admin: 10/24/16 09:01 Dose: 40 mg - Labs Labs: 10/24/16 06:13 10/24/16 06:13 PT 10.7 SECONDS (9.7-12.2) 10/22/16 16:39 INR 1.0 10/22/16 16:39 APTT 26 SECONDS (21-34) 10/23/16 05:58 - Constitutional Appears: Non-toxic, No Acute Distress - Head Exam Head Exam: NORMAL INSPECTION - Eye Exam Eye Exam: EOMI - ENT Exam ENT Exam: Mucous Membranes Moist - Respiratory Exam Respiratory Exam: Rales, NORMAL BREATHING PATTERN. absent: Accessory Muscle Use , Respiratory Distress - Cardiovascular Exam Cardiovascular Exam: REGULAR RHYTHM, +S1, +S2. absent: Gallop, Rubs, Murmur - GI/Abdominal Exam GI & Abdominal Exam: Soft, Normal Bowel Sounds. absent: Tenderness - Extremities Exam Extremities Exam: absent: Pedal Edema - Neurological Exam Neurological Exam: Alert, Oriented x3 - Psychiatric Exam Psychiatric exam: Normal Affect, Normal Mood - Skin Skin Exam: Normal Color, Warm Assessment and Plan - Assessment and Plan (Free Text) Assessment: Weakness -Temp on admission: 100.2F. Currently afebrile -Chest CT w/o contrast: Lungs and bones suggest metastatic disease. Innumerable subcentimeter nodules to bilateral lungs, L>R. Moderate left sided pleural effusion (see full report) -CXR: interstitial prominence may reflect infection/edema. L lower lobe consolidation and/or pleural effusion. -Thoracentesis performed today - 500cc straw colored fluid. Pleural fluid sent for cytology, cell differentiation, LDH, total protein, albumin, amylase, CEA -procalcitonin: 5.07. Will recheck procalcitonin, -VBG lactate on admission 2.4 --> repeat 1.5 -blood cultures negative x 24 hours -urine cultures - no growth -UA: negative -CTA : negative for PE -Avelox 400mg ivpb q24 -NS @ 100cc/hr - discontinued today as patient is eating and drinking well Pleural Effusion Thoracentesis yesterday - 500cc removed F/U pleural fluid tests Robitussin ordered for cough Breast CA with mets -CT Abdomen/pelvis with IV contrast: findings within liver and bones consistent with diffuse mets -transaminitis likely secondary to mets AST 182 ALT 103 Alk Phos 230 -Palliative Care Consult -Heme/onc: Dr. Israel PPX -Heparin 5000u sc q12 -Protonix 40mg po daily -SCDs -Regular diet -PT/OT -Palliative care consult - DNR/ DNI, POLST completed, patient wants all ordinary measures including chemo <Cesar Gill H - Last Filed: 10/24/16 11:04> Objective - Vital Signs/Intake and Output Vital Signs (last 24 hours): Temp Pulse Resp BP Pulse Ox 99 F 97 H 20 120/75 95 10/24/16 00:00 10/24/16 00:00 10/24/16 00:00 10/24/16 00:00 10/24/16 00:00 Intake and Output: 10/24/16 10/24/16 06:59 18:59 Intake Total 1200 240 Balance 1200 240 - Medications Medications: Current Medications Guaifenesin (Robitussin) 100 mg PO Q4H PRN PRN Reason: Cough Moxifloxacin HCl (Avelox Iv 400mg/250ml Ns) 400 mg in 250 mls @ 167 mls/hr IVPB Q24H [facility] Last Admin: 10/23/16 21:16 Dose: 167 mls/hr Morphine Sulfate (Morphine) 1 mg IVP Q4 PRN PRN Reason: Pain, moderate (4-7) Last Admin: 10/23/16 19:51 Dose: 1 mg Ondansetron HCl (Zofran Inj) 4 mg IVP Q6H PRN PRN Reason: Nausea/Vomiting Last Admin: 10/23/16 19:51 Dose: 4 mg Pantoprazole Sodium (Protonix Ec Tab) 40 mg PO DAILY [facility] Last Admin: 10/24/16 09:01 Dose: 40 mg - Labs Labs: 10/24/16 06:13 10/24/16 06:13 PT 10.7 SECONDS (9.7-12.2) 10/22/16 16:39 INR 1.0 10/22/16 16:39 APTT 26 SECONDS (21-34) 10/23/16 05:58 Attending/Attestation - Attestation I have personally seen and examined this patient.: Yes I have fully participated in the care of the patient.: Yes I have reviewed all pertinent clinical information, including history, physical exam and plan: Yes Notes (Text): 10/24/16 11:00 Medical Attending: Patient was seen and examined by me. Agree with the above note by the resident. We saw the patient together. The patient was not in any acute distress. Breathing was about the same she said despite removal of 500cc reported. Currently pending the results of the pleural fluid analysis. Explained to the patient there is likeyhood that it is malignant in nature thank you Cesar Gill
[2016-10-24] MEDS ORDERED: Magnesium Hydroxide Susp 30 ml UD PO ONE (16:30)
[2016-10-24] MEDS: Moxifloxacin IV 400mg/250ml NS 400 MG/250 ML BAG IVPB SCH (20:22)
[2016-10-25 07:24] LABS: BASO % 0.5 % (0.0-2.0); EOS % 1.1 % (0.0-4.0); HEMATOCRIT 37.5 % (34.0-47.0); LYMPH # 0.8 K/uL (1.0-4.3); LYMPH % 19.3 % (20.0-40.0); MEAN CELL VOLUME 91.3 fL (81.0-99.0); MEAN CORPUSCULAR HGB CONC 32.8 g/dL (33.0-37.0); MEAN PLATELET VOLUME 9.2 fL (7.2-11.7); MONO # 0.3 K/uL (0.0-0.8); MONO % 6.5 % (0.0-10.0); NRBC % 0.1 % (0.0-2.0); RED CELL DISTRIBUTION WIDTH 15.2 % (11.5-14.5); WHITE BLOOD COUNT 4.2 K/uL (4.8-10.8)
[2016-10-25 07:32] LABS: CHLORIDE 101 mmol/L (98-107); SODIUM 136 mmol/L (132-148)
[2016-10-25 07:33] LABS: POTASSIUM 3.7 mmol/L (3.6-5.2)
[2016-10-25 07:34] LABS: GFR AFRICAN-AMERICAN > 60
[2016-10-25 07:35] LABS: ALB/GLOB RATIO 0.9 (1.0-2.1); ALKALINE PHOSPHATASE 241 U/L (38-126); ALT/SGPT 67 U/L (9-52); AST/SGOT 117 U/L (14-36); BILIRUBIN,TOTAL 0.9 mg/dL (0.2-1.3); BLOOD UREA NITROGEN 12 mg/dL (7-17); CARBON DIOXIDE 28 mmol/L (22-30); GLUCOSE,RANDOM 94 mg/dL (65-105); TOTAL PROTEIN 6.1 g/dL (6.3-8.3)
[2016-10-25 07:36] LABS: CALCIUM 8.3 mg/dl (8.6-10.4)
--- NOTE | 2016-10-25 08:39 | CARD ---
APPROVED REPORT EKG Measurement Heart [id number] <Conclusion> Sinus tachycardia Possible Anterior infarct, age undetermined Abnormal ECG
[2016-10-25] MEDS: Pantoprazole 40 mg EC Tab PO SCH (08:59)
[2016-10-25] MEDS: guaiFENesin 100 mg/5 ml Syrup UD PO PRN ×2 (10:39→16:36)
[2016-10-25] MEDS: Moxifloxacin IV 400mg/250ml NS 400 MG/250 ML BAG IVPB SCH (20:14)
[2016-10-26 06:14] LABS: BASO % 0.3 % (0.0-2.0); EOS # 0.1 K/uL (0.0-0.7); EOS % 1.1 % (0.0-4.0); HEMATOCRIT 36.8 % (34.0-47.0); LYMPH # 0.9 K/uL (1.0-4.3); LYMPH % 19.7 % (20.0-40.0); MEAN CELL VOLUME 90.9 fL (81.0-99.0); MONO # 0.5 K/uL (0.0-0.8); RED CELL DISTRIBUTION WIDTH 15.1 % (11.5-14.5); WHITE BLOOD COUNT 4.7 K/uL (4.8-10.8)
[2016-10-26 06:50] LABS: CHLORIDE 101 mmol/L (98-107); SODIUM 134 mmol/L (132-148)
[2016-10-26 06:51] LABS: POTASSIUM 3.9 mmol/L (3.6-5.2)
[2016-10-26 06:53] LABS: ALB/GLOB RATIO 0.8 (1.0-2.1); ALKALINE PHOSPHATASE 240 U/L (38-126); AST/SGOT 74 U/L (14-36); BILIRUBIN,TOTAL 0.7 mg/dL (0.2-1.3); BLOOD UREA NITROGEN 12 mg/dL (7-17); CARBON DIOXIDE 26 mmol/L (22-30); GFR AFRICAN-AMERICAN > 60; TOTAL PROTEIN 6.2 g/dL (6.3-8.3)
[2016-10-26 06:54] LABS: ALT/SGPT 61 U/L (9-52); CALCIUM 8.3 mg/dl (8.6-10.4); GLUCOSE,RANDOM 86 mg/dL (65-105); MAGNESIUM 1.9 mg/dL (1.6-2.3)
--- NOTE | 2016-10-26 08:15 | CON ---
DATE: 10/26/2016 This is a 61-year-old woman with widespread metastatic breast cancer to her liver and to her bones. She is feeling somewhat better after the interventional procedure, 500 mL of pleural fluid was remove d. She remains weak, but relatively stable and afebrile. Very critical is for her to speak to [employer] service about getting on Medicaid. She was supposed to go to the Medicaid office last week, but wa s admitted to the hospital before she could go there, but this is very critical and if it could be fa cilitated and pushed through, that would be very helpful and that way we could give her the chemother apy. We have already started her and gotten her free medication for Herceptin and Perjeta, but we ca nnot get the chemotherapy unless she gets Medicaid. She should be able to go home soon. She is more stable now. The blood counts are reasonable and she is afebrile and so I think after she sees the s ial service to help her with the Medicaid, she should be able to go home soon. We will be able to restart her on the chemotherapy hopefully this week. Interestingly enough, the liver function tests are improving. It was 182 on admission. The AST is now 74 and the ALT 103 is now down to 61. Maybe it is due to the chemotherapy we started already. Dimitris Israel MD cc: [id number] TT: 10/26/2016 08:15:14 Confirmation # [id number] Dictation # [id number]
[2016-10-26] MEDS: Pantoprazole 40 mg EC Tab PO SCH (09:44)
--- NOTE | 2016-10-26 17:44 | CP.PCM.PN ---
<Rosita Hughes - Last Filed: 10/26/16 19:52> Subjective - Date & Time of Evaluation Date of Evaluation: 10/26/16 Time of Evaluation: 17:44 - Subjective Subjective: Medicine Progress notes- Dr. Felder service: Patient was seen and examined at bedside this morning in no acute distress. Patient still compalins of cough with white sputum. Patient reports still having epigastric discomfort and gas/burping. Her last bowel movement was yesterday. Patient denies chest pain, palpitations, nausea, vomiting, and dizziness. Objective - Vital Signs/Intake and Output Vital Signs (last 24 hours): Temp Pulse Resp BP Pulse Ox 99.1 F 98 H 20 134/89 94 L 10/26/16 15:00 10/26/16 15:00 10/26/16 15:00 10/26/16 15:00 10/26/16 15:00 Intake and Output: 10/26/16 10/26/16 06:59 18:59 Intake Total 350 200 Balance 350 200 - Medications Medications: Current Medications Docusate Sodium (Colace) 100 mg PO BID [facility] Last Admin: 10/26/16 09:43 Dose: 100 mg Guaifenesin (Robitussin) 100 mg PO Q4H PRN PRN Reason: Cough Last Admin: 10/25/16 16:36 Dose: 100 mg Heparin Sodium (Porcine) (Heparin) 5,000 units SC Q8 [facility] Last Admin: 10/26/16 14:32 Dose: 5,000 units Moxifloxacin HCl (Avelox Iv 400mg/250ml Ns) 400 mg in 250 mls @ 167 mls/hr IVPB Q24H [facility] Last Admin: 10/25/16 20:14 Dose: 167 mls/hr Morphine Sulfate (Morphine) 1 mg IVP Q4 PRN PRN Reason: Pain, moderate (4-7) Last Admin: 10/25/16 22:29 Dose: 1 mg Ondansetron HCl (Zofran Inj) 4 mg IVP Q6H PRN PRN Reason: Nausea/Vomiting Last Admin: 10/25/16 16:38 Dose: 4 mg Pantoprazole Sodium (Protonix Ec Tab) 40 mg PO DAILY [facility] Last Admin: 10/26/16 09:44 Dose: 40 mg - Labs Labs: 10/26/16 06:04 10/26/16 06:04 PT 10.7 SECONDS (9.7-12.2) 10/22/16 16:39 INR 1.0 10/22/16 16:39 APTT 26 SECONDS (21-34) 10/23/16 05:58 - Constitutional Appears: Non-toxic, No Acute Distress - Head Exam Head Exam: NORMAL INSPECTION, NORMOCEPHALIC - Eye Exam Eye Exam: EOMI, Normal appearance - ENT Exam ENT Exam: Mucous Membranes Moist - Neck Exam Neck Exam: Full ROM, Normal Inspection - Respiratory Exam Respiratory Exam: NORMAL BREATHING PATTERN. absent: Accessory Muscle Use, Respiratory Distress Additional comments: cough with respirations - Cardiovascular Exam Cardiovascular Exam: REGULAR RHYTHM, +S1, +S2 - GI/Abdominal Exam GI & Abdominal Exam: Soft, Normal Bowel Sounds. absent: Distended, Tenderness - Extremities Exam Extremities Exam: absent: Calf Tenderness, Pedal Edema, Tenderness - Neurological Exam Neurological Exam: Alert, Awake, Oriented x3 - Psychiatric Exam Psychiatric exam: Normal Affect, Normal Mood - Skin Skin Exam: Dry, Normal Color, Warm Assessment and Plan (1) Weakness Assessment & Plan: Patient with BCA and widespread metastatic disease. Weakness likely secondary to pleural effusion and chemo treatments s/p thoracentesis 500 cc on 10/23/16. Patient feeling better after fluid removed. procalcitonin: 5.07. Will recheck procalcitonin, VBG lactate on admission 2.4 --> repeat 1.5 blood cultures 10/22 negative x 4 days urine cultures 10/22 - no growth UA: negative CTA : negative for PE Avelox 400mg ivpb q24- day 5 Dr. Israel-Heme/onc consult placed- help appreciated -As per Dr. Israel, patient should be discharged to continue outpatient chemo -Follow up with [facility]. TCU recommended. Imaging: Chest CT w/o contrast: Lungs and bones suggest metastatic disease. Innumerable subcentimeter nodules to bilateral lungs, L>R. Moderate left sided pleural effusion (see full report) CXR: interstitial prominence may reflect infection/edema. L lower lobe consolidation and/or pleural effusion. Status: Acute (2) Malignant pleural effusion Assessment & Plan: Thoracentesis performed 10/23/16 - 500cc straw colored fluid. Pleural fluid: WBC 341; RBC 3885, Total cell count 100, Fluid neutrophils 35, fluid lymphocytes 61, fluid monocyte/macrophage 4; [id number], amylase 20, CEA 4076 Avelox 400mg ivpb q24- day 5 Continue Robitussin for cough Status: Acute (3) Breast cancer Assessment & Plan: Breast cancer with mets to lungs liver, and bones Dr. Israel-Heme/onc consult placed- help appreciated -As per Dr. Israel, patient should be discharged to continue outpatient chemo -Follow up with [facility]. TCU recommended. CT Abdomen/pelvis with IV contrast: findings within liver and bones consistent with diffuse mets Chest CT: findinging within lungs consistent with diffuse mets Status: Acute (4) Transaminitis Assessment & Plan: transaminitis likely secondary to mets LFTs improving, AST decreased from 182 on admission to 74, and ALT decreased from 103 on admission to 61 Status: Acute (5) Prophylactic measure Assessment & Plan: Heparin 5000u sc q8 -Protonix 40mg po daily -SCDs -Regular diet -PT/OT -Palliative care consult - DNR/ DNI, POLST completed, patient wants all ordinary measures including chemo Status: Acute <Luis Felder - Last Filed: 10/27/16 07:56> Objective - Vital Signs/Intake and Output Vital Signs (last 24 hours): Temp Pulse Resp BP Pulse Ox 98.6 F 100 H 20 112/71 98 10/27/16 06:00 10/27/16 00:00 10/27/16 00:00 10/27/16 00:00 10/27/16 00:00 Intake and Output: 10/27/16 10/27/16 06:59 18:59 Intake Total 850 Balance 850 - Medications Medications: Current Medications Docusate Sodium (Colace) 100 mg PO BID [facility] Last Admin: 10/26/16 17:52 Dose: 100 mg Guaifenesin (Robitussin) 100 mg PO Q4H PRN PRN Reason: Cough Last Admin: 10/25/16 16:36 Dose: 100 mg Heparin Sodium (Porcine) (Heparin) 5,000 units SC Q8 [facility] Last Admin: 10/27/16 06:09 Dose: 5,000 units Moxifloxacin HCl (Avelox Iv 400mg/250ml Ns) 400 mg in 250 mls @ 167 mls/hr IVPB Q24H [facility] Last Admin: 10/26/16 21:15 Dose: 167 mls/hr Morphine Sulfate (Morphine) 1 mg IVP Q4 PRN PRN Reason: Pain, moderate (4-7) Last Admin: 10/25/16 22:29 Dose: 1 mg Ondansetron HCl (Zofran Inj) 4 mg IVP Q6H PRN PRN Reason: Nausea/Vomiting Last Admin: 10/25/16 16:38 Dose: 4 mg Pantoprazole Sodium (Protonix Ec Tab) 40 mg PO DAILY [facility] Last Admin: 10/26/16 09:44 Dose: 40 mg - Labs Labs: 10/27/16 06:21 10/27/16 06:21 PT 10.7 SECONDS (9.7-12.2) 10/22/16 16:39 INR 1.0 10/22/16 16:39 APTT 26 SECONDS (21-34) 10/23/16 05:58 Attending/Attestation - Attestation I have personally seen and examined this patient.: Yes I have fully participated in the care of the patient.: Yes I have reviewed all pertinent clinical information, including history, physical exam and plan: Yes Notes (Text): 10/27/16 07:55 Patient was seen and examined at bedside This a late computer entry. She is status post paracentesis. She is feeling better now. Breathing is improved Oncology evaluation noted. Patient to follow-up for outpatient chemotherapy. Discussed with the case management and mental health social worker. Patient does not qualify for Medicaid at this time. Patient will be discharged to home because she will not be able to be placed in a rehabilitation per the case management Discharge planning likely in the next 24 hours if the patient is medically stable
[2016-10-26] MEDS: Moxifloxacin IV 400mg/250ml NS 400 MG/250 ML BAG IVPB SCH (21:15)
[2016-10-27 06:30] LABS: BASO % 0.4 % (0.0-2.0); EOS # 0.1 K/uL (0.0-0.7); EOS % 1.8 % (0.0-4.0); HEMATOCRIT 35.9 % (34.0-47.0); LYMPH % 25.6 % (20.0-40.0); MEAN CELL VOLUME 91.2 fL (81.0-99.0); MEAN CORPUSCULAR HEMOGLOBIN 30.4 pg (27.0-31.0); MEAN CORPUSCULAR HGB CONC 33.3 g/dL (33.0-37.0); MEAN PLATELET VOLUME 8.9 fL (7.2-11.7); MONO # 0.4 K/uL (0.0-0.8); MONO % 10.6 % (0.0-10.0); NRBC % 0.1 % (0.0-2.0); RED CELL DISTRIBUTION WIDTH 14.7 % (11.5-14.5); WHITE BLOOD COUNT 4.1 K/uL (4.8-10.8)
[2016-10-27 06:57] LABS: CHLORIDE 103 mmol/L (98-107)
[2016-10-27 06:58] LABS: POTASSIUM 4.2 mmol/L (3.6-5.2); SODIUM 136 mmol/L (132-148)
[2016-10-27 07:00] LABS: ALB/GLOB RATIO 0.9 (1.0-2.1); ALKALINE PHOSPHATASE 227 U/L (38-126); AST/SGOT 52 U/L (14-36); BILIRUBIN,TOTAL 0.7 mg/dL (0.2-1.3); CARBON DIOXIDE 26 mmol/L (22-30); GFR AFRICAN-AMERICAN > 60; TOTAL PROTEIN 6.4 g/dL (6.3-8.3)
[2016-10-27 07:01] LABS: ALT/SGPT 50 U/L (9-52); BLOOD UREA NITROGEN 11 mg/dL (7-17); CALCIUM 8.4 mg/dl (8.6-10.4); GLUCOSE,RANDOM 97 mg/dL (65-105); MAGNESIUM 2.1 mg/dL (1.6-2.3); PHOSPHOROUS 3.5 mg/dL (2.5-4.5)
--- NOTE | 2016-10-27 07:47 | CP.PCM.PN ---
Subjective - Date & Time of Evaluation Date of Evaluation: 10/27/16 Objective - Vital Signs/Intake and Output Vital Signs (last 24 hours): Temp Pulse Resp BP Pulse Ox 98.6 F 100 H 20 112/71 98 10/27/16 06:00 10/27/16 00:00 10/27/16 00:00 10/27/16 00:00 10/27/16 00:00 Intake and Output: 10/27/16 10/27/16 06:59 18:59 Intake Total 850 Balance 850 - Medications Medications: Current Medications Docusate Sodium (Colace) 100 mg PO BID [facility] Last Admin: 10/26/16 17:52 Dose: 100 mg Guaifenesin (Robitussin) 100 mg PO Q4H PRN PRN Reason: Cough Last Admin: 10/25/16 16:36 Dose: 100 mg Heparin Sodium (Porcine) (Heparin) 5,000 units SC Q8 [facility] Last Admin: 10/27/16 06:09 Dose: 5,000 units Moxifloxacin HCl (Avelox Iv 400mg/250ml Ns) 400 mg in 250 mls @ 167 mls/hr IVPB Q24H [facility] Last Admin: 10/26/16 21:15 Dose: 167 mls/hr Morphine Sulfate (Morphine) 1 mg IVP Q4 PRN PRN Reason: Pain, moderate (4-7) Last Admin: 10/25/16 22:29 Dose: 1 mg Ondansetron HCl (Zofran Inj) 4 mg IVP Q6H PRN PRN Reason: Nausea/Vomiting Last Admin: 10/25/16 16:38 Dose: 4 mg Pantoprazole Sodium (Protonix Ec Tab) 40 mg PO DAILY [facility] Last Admin: 10/26/16 09:44 Dose: 40 mg - Labs Labs: 10/27/16 06:21 10/27/16 06:21 PT 10.7 SECONDS (9.7-12.2) 10/22/16 16:39 INR 1.0 10/22/16 16:39 APTT 26 SECONDS (21-34) 10/23/16 05:58 Assessment and Plan (1) Weakness Status: Acute (2) Malignant pleural effusion Status: Acute (3) Breast cancer Status: Acute (4) Transaminitis Status: Acute (5) Prophylactic measure Status: Acute
[2016-10-27] MEDS: Pantoprazole 40 mg EC Tab PO SCH (09:40)
[2016-10-27] MEDS ORDERED: Aluminum Hydroxide/Magnesium Hydroxide Susp (30 mL) PO ONE (13:33)
--- NOTE | 2016-10-27 14:24 | CP.PCM.DIS ---
<Rosita Hughes - Last Filed: 10/27/16 20:33> Provider - Provider Date of Admission: 10/22/16 19:42 Attending physician: Luis Felder MD Primary care physician: none Consults: Hematology Oncology: Dr. Israel Palliative Care: Dr. Machado Time Spent in preparation of Discharge (in minutes): 45 Diagnosis - Discharge Diagnosis (1) Weakness Status: Resolved Comment: Likely secondary to Pleural Effusion. See below. (2) Malignant pleural effusion Status: Chronic Comment: S/P Thoracentesis 500cc removed by IR. (3) Breast cancer Status: Chronic Comment: Patient with metastatic disease to lungs, liver, and bones. Patient to continue outpatient chemotherapy as per Dr. Israel. (4) Transaminitis Status: Acute Comment: Improved during hospital stay. Hospital Course - Lab Results Lab Results: Micro Results 10/22/16 Unknown Urine,Clean Catch Urine Culture - Final No Growth (<1,000 CFU/ML) Most Recent Lab Values WBC 4.1 K/uL (4.8-10.8) L 10/27/16 06:21 RBC 3.94 Mil/uL (3.80-5.20) 10/27/16 06:21 Hgb 12.0 g/dL (11.0-16.0) 10/27/16 06:21 Hct 35.9 % (34.0-47.0) 10/27/16 06:21 MCV 91.2 fL (81.0-99.0) 10/27/16 06:21 MCH 30.4 pg (27.0-31.0) 10/27/16 06:21 MCHC 33.3 g/dL (33.0-37.0) 10/27/16 06:21 RDW 14.7 % (11.5-14.5) H 10/27/16 06:21 Plt Count 176 K/uL (130-400) 10/27/16 06:21 MPV 8.9 fL (7.2-11.7) 10/27/16 06:21 Neut % (Auto) 61.6 % (50.0-75.0) 10/27/16 06:21 Lymph % (Auto) 25.6 % (20.0-40.0) 10/27/16 06:21 Iron % (Auto) 10.6 % (0.0-10.0) H 10/27/16 06:21 Eos % (Auto) 1.8 % (0.0-4.0) 10/27/16 06:21 Baso % (Auto) 0.4 % (0.0-2.0) 10/27/16 06:21 Neut # 2.5 K/uL (1.8-7.0) 10/27/16 06:21 Lymph # 1.0 K/uL (1.0-4.3) 10/27/16 06:21 Iron # 0.4 K/uL (0.0-0.8) 10/27/16 06:21 Eos # 0.1 K/uL (0.0-0.7) 10/27/16 06:21 Baso # 0.0 K/uL (0.0-0.2) 10/27/16 06:21 Neutrophils % (Manual) 89 % (50-75) H 10/23/16 05:58 Band Neutrophils % 2 % (0-2) 10/22/16 16:39 Lymphocytes % (Manual) 10 % (20-40) L 10/23/16 05:58 Monocytes % (Manual) TEST NOT PERFORMED 10/23/16 05:58 Eosinophils % (Manual) 1 % (0-4) 10/23/16 05:58 Hypersegmented Polys Present 10/22/16 16:39 Smudge Cells Present 10/22/16 16:39 Platelet Estimate Normal (NORMAL) 10/23/16 05:58 Large Platelets Present 10/22/16 16:39 Hypochromasia (manual) Slight 10/22/16 16:39 Poikilocytosis (manual Slight 10/22/16 16:39 Anisocytosis (manual) Slight 10/23/16 05:58 PT 10.7 SECONDS (9.7-12.2) 10/22/16 16:39 INR 1.0 10/22/16 16:39 APTT 26 SECONDS (21-34) 10/23/16 05:58 pO2 59 mm/Hg (30-55) H 10/22/16 19:30 VBG pH 7.43 (7.32-7.43) 10/22/16 19:30 VBG pCO2 31 mmHg (40-60) L 10/22/16 19:30 VBG HCO3 22.6 mmol/L 10/22/16 19:30 VBG Total CO2 21.6 mmol/L (22-28) L 10/22/16 19:30 VBG O2 Sat (Calc) 92.2 % (40-65) H 10/22/16 19:30 VBG Base Excess -2.7 mmol/L (0.0-2.0) L 10/22/16 19:30 VBG Potassium 4.0 mmol/L (3.6-5.2) 10/22/16 19:30 Sodium 141.0 mmol/l (132-148) 10/22/16 19:30 Chloride 118.0 mmol/L (98-107) H 10/22/16 19:30 Glucose 108 mg/dl (65-105) H 10/22/16 19:30 Lactate 1.5 mmol/L (0.7-2.1) 10/22/16 19:30 Sodium 136 mmol/L (132-148) 10/27/16 06:21 Potassium 4.2 mmol/L (3.6-5.2) 10/27/16 06:21 Chloride 103 mmol/L (98-107) 10/27/16 06:21 Carbon Dioxide 26 mmol/L (22-30) 10/27/16 06:21 Anion Gap 11 (10-20) 10/27/16 06:21 BUN 11 mg/dL (7-17) 10/27/16 06:21 Creatinine 0.6 MG/DL (0.7-1.2) L 10/27/16 06:21 Est GFR ( Amer) > 60 10/27/16 06:21 Est GFR (Non-Af Amer) > 60 10/27/16 06:21 Random Glucose 97 mg/dL (65-105) 10/27/16 06:21 Calcium 8.4 mg/dl (8.6-10.4) L 10/27/16 06:21 Phosphorus 3.5 mg/dL (2.5-4.5) 10/27/16 06:21 Magnesium 2.1 mg/dL (1.6-2.3) 10/27/16 06:21 Total Bilirubin 0.7 mg/dL (0.2-1.3) 10/27/16 06:21 AST 52 U/L (14-36) H D 10/27/16 06:21 ALT 50 U/L (9-52) 10/27/16 06:21 Alkaline Phosphatase 227 U/L (38-126) H 10/27/16 06:21 Total Protein 6.4 g/dL (6.3-8.3) 10/27/16 06:21 Albumin 3.1 g/dL (3.5-5.0) L 10/27/16 06:21 Globulin 3.4 gm/dL (2.2-3.9) 10/27/16 06:21 Albumin/Globulin Ratio 0.9 (1.0-2.1) L 10/27/16 06:21 Procalcitonin 5.07 NG/ML (0.19-0.49) H 10/22/16 22:08 Venous Blood Potassium 4.0 mmol/L (3.6-5.2) 10/22/16 19:30 Urine Color Straw (YELLOW) 10/22/16 19:36 Urine Clarity Clear (Clear) 10/22/16 19:36 Urine pH 6.0 (5.0-8.0) 10/22/16 19:36 Ur Specific [place] 1.013 (1.003-1.030) 10/22/16 19:36 Urine Protein Negative mg/dL (NEGATIVE) 10/22/16 19:36 Urine Glucose (UA) Normal mg/dL (Normal) 10/22/16 19:36 Urine Ketones Negative mg/dL (NEGATIVE) 10/22/16 19:36 Urine Blood Negative (NEGATIVE) 10/22/16 19:36 Urine Nitrate Negative (NEGATIVE) 10/22/16 19:36 Urine Bilirubin Negative (NEGATIVE) 10/22/16 19:36 Urine Urobilinogen Normal mg/dL (0.2-1.0) 10/22/16 19:36 Ur Leukocyte Esterase Neg Cristopher/uL (Negative) 10/22/16 19:36 Urine WBC (Auto) < 1 /hpf (0-5) 10/22/16 19:36 Urine RBC (Auto) < 1 /hpf (0-3) 10/22/16 19:36 Ur Squamous Epith Cells < 1 /hpf (0-5) 10/22/16 19:36 Urine Bacteria Rare (<OCC) 10/22/16 19:36 Fluid Source Pleural/thoracentesi 10/23/16 12:46 Fluid Appearance Sl cloudy (CLEAR) 10/23/16 12:46 Fluid WBC 341.0 /mm3 (0.0-300.0) H 10/23/16 12:46 Fluid RBC 3885.0 /mm3 (0.0-0.0) H 10/23/16 12:46 Fluid Tot Cell Count 100 (0-0) H 10/23/16 12:46 Fluid Neutrophils 35.0 % (0-0) H 10/23/16 12:46 Fluid Lymphocytes 61.0 % (0-0) H 10/23/16 12:46 Fld Monocyte/Macrophag 4 % (0-0) H 10/23/16 12:46 Fluid Diff Path Review 10/23/16 12:46 Fluid Albumin 2.0 g/dL 10/23/16 13:45 Fluid Comment 10/23/16 12:46 Pleural LDH 383 U/L 10/23/16 13:45 Pleural Amylase 20 U/L 10/23/16 13:45 Pleural Fluid CEA 4076.8 ng/mL (<10.0) H 10/23/16 13:45 - Hospital Course Hospital Course: As per H&P "CC: I felt weak HPI: 61 F PMHx of breast ca (dx 6 years ago) s/p L lumpectomy 2012 with mets to liver and spine, and HTN presents with diaphoresis and weakness that occurred when receiving chemotherapy at Dr. Power office. As per [facility] discharge note patient was admitted in June 2016 and found to have mets in T10 and L4 region on MRI and liver biopsy showed metastatic cancer- Patient was receiving radiation therapy at that time. This afternoon patient was at the infusion center receiving chemotherapy and began to feel hot, diaphoretic, and "shaky" and felt like her blood pressure was elevated. She was feeling lightheaded and weak and was told to come in to the ER. Patient denied any fever, chills, headache, dizziness, change in vision/hearing, sore throat, dysphagia, chest pain, palpitations, SOB, nausea, vomiting, bowel/bladder complaints, swelling in her legs, easy bruising/bleeding, weight/appetite changes. Patient admitted to having body aches and pain in her hips and back that she associates with her ca mets and rates 5/10. She also has a lot of "gas" and continuous burping that she is unable to control but does not have much flatus. Patient's last BM was day of admission and last meal was earlier in the day. Patient has also had a dry cough for the past day but no associated SOB. She admits to heat intolerance , lightheadedness, nonproductive cough, weakness, abdominal pain, leg pain, back pain, and a rash that developed in the ED after patient was given a bag of Cefepime [patient did not know she was allergic to cefepime]. She also had sick contacts at home as her daughter and grandchildren had a common cold." In the ED, patient had a chest xray which showed "Interstitial prominence may reflect infection or edema. Left lower lobe consolidation and or pleural effusion. Cardiomegaly." Blood and Urine Cultures were ordered and were negative. Patient started Maxipime and Avalox. Patient developed a rash on chest and back post Maxipime administration. Maxipime was discontinued and patient received Benadryl. Rash resolved. IR consult was placed. Patient went for thoracentesis with removal of 500 cc. Results were positive with WBC 34, RBC 3885, Total cell count 100, Fluid neutrophils 35, fluid lymphocytes 61, fluid monocyte/macrophage 4, [id number], amylase 20, and CEA 4076. Patient started Avelox and Robitussin. Transaminitis found on admission likely secondary to metastatic disease. LFTs improved during hospital stay. Patient discharged to follow up with Dr. Israel to continue her outpatient chemotherapy. This is a summary of the hospital course. Please see chart for details. Discharge Exam - Head Exam Head Exam: NORMAL INSPECTION, NORMOCEPHALIC - Eye Exam Eye Exam: EOMI, Normal appearance - ENT Exam ENT Exam: Mucous Membranes Moist - Respiratory Exam Respiratory Exam: Decreased Breath Sounds, UNREMARKABLE. absent: Rales, Rhonchi , Wheezes - Cardiovascular Exam Cardiovascular Exam: REGULAR RHYTHM, +S1, +S2 - GI/Abdominal Exam GI & Abdominal Exam: Normal Bowel Sounds, Soft. absent: Tenderness - Extremities Exam Extremities exam: normal inspection - Neurological Exam Neurological exam: Alert, Oriented x3 - Psychiatric Exam Psychiatric exam: Normal Affect, Normal Mood - Skin Skin Exam: Dry, Normal Color, Warm Discharge Plan - Follow Up Plan Condition: FAIR Disposition: HOME/ ROUTINE Instructions: Breast Cancer in Women (DC), Fever in Adults (GEN) Additional Instructions: Patient stable for discharge as per Dr. Felder. Patient should resume all home medications. Patient should make an appointment and follow up with primary doctor within 1 week after discharge. Patient should follow up with Dr. Israel within 1 week of discharge for chemotherapy. Patient should return to the ED immediately if symptoms return or worsen. Instructions were discussed with patients who understood and agreed. Referrals: Dimitris Israel MD [Staff Provider] - <Luis Felder - Last Filed: 10/28/16 17:37> Provider - Provider Date of Admission: 10/22/16 19:42 Attending physician: Luis Felder MD Hospital Course - Lab Results Lab Results: Micro Results 10/22/16 Unknown Urine,Clean Catch Urine Culture - Final No Growth (<1,000 CFU/ML) Most Recent Lab Values WBC 4.1 K/uL (4.8-10.8) L 10/27/16 06:21 RBC 3.94 Mil/uL (3.80-5.20) 10/27/16 06:21 Hgb 12.0 g/dL (11.0-16.0) 10/27/16 06:21 Hct 35.9 % (34.0-47.0) 10/27/16 06:21 MCV 91.2 fL (81.0-99.0) 10/27/16 06:21 MCH 30.4 pg (27.0-31.0) 10/27/16 06:21 MCHC 33.3 g/dL (33.0-37.0) 10/27/16 06:21 RDW 14.7 % (11.5-14.5) H 10/27/16 06:21 Plt Count 176 K/uL (130-400) 10/27/16 06:21 MPV 8.9 fL (7.2-11.7) 10/27/16 06:21 Neut % (Auto) 61.6 % (50.0-75.0) 10/27/16 06:21 Lymph % (Auto) 25.6 % (20.0-40.0) 10/27/16 06:21 Iron % (Auto) 10.6 % (0.0-10.0) H 10/27/16 06:21 Eos % (Auto) 1.8 % (0.0-4.0) 10/27/16 06:21 Baso % (Auto) 0.4 % (0.0-2.0) 10/27/16 06:21 Neut # 2.5 K/uL (1.8-7.0) 10/27/16 06:21 Lymph # 1.0 K/uL (1.0-4.3) 10/27/16 06:21 Iron # 0.4 K/uL (0.0-0.8) 10/27/16 06:21 Eos # 0.1 K/uL (0.0-0.7) 10/27/16 06:21 Baso # 0.0 K/uL (0.0-0.2) 10/27/16 06:21 Neutrophils % (Manual) 89 % (50-75) H 10/23/16 05:58 Band Neutrophils % 2 % (0-2) 10/22/16 16:39 Lymphocytes % (Manual) 10 % (20-40) L 10/23/16 05:58 Monocytes % (Manual) TEST NOT PERFORMED 10/23/16 05:58 Eosinophils % (Manual) 1 % (0-4) 10/23/16 05:58 Hypersegmented Polys Present 10/22/16 16:39 Smudge Cells Present 10/22/16 16:39 Platelet Estimate Normal (NORMAL) 10/23/16 05:58 Large Platelets Present 10/22/16 16:39 Hypochromasia (manual) Slight 10/22/16 16:39 Poikilocytosis (manual Slight 10/22/16 16:39 Anisocytosis (manual) Slight 10/23/16 05:58 PT 10.7 SECONDS (9.7-12.2) 10/22/16 16:39 INR 1.0 10/22/16 16:39 APTT 26 SECONDS (21-34) 10/23/16 05:58 pO2 59 mm/Hg (30-55) H 10/22/16 19:30 VBG pH 7.43 (7.32-7.43) 10/22/16 19:30 VBG pCO2 31 mmHg (40-60) L 10/22/16 19:30 VBG HCO3 22.6 mmol/L 10/22/16 19:30 VBG Total CO2 21.6 mmol/L (22-28) L 10/22/16 19:30 VBG O2 Sat (Calc) 92.2 % (40-65) H 10/22/16 19:30 VBG Base Excess -2.7 mmol/L (0.0-2.0) L 10/22/16 19:30 VBG Potassium 4.0 mmol/L (3.6-5.2) 10/22/16 19:30 Sodium 141.0 mmol/l (132-148) 10/22/16 19:30 Chloride 118.0 mmol/L (98-107) H 10/22/16 19:30 Glucose 108 mg/dl (65-105) H 10/22/16 19:30 Lactate 1.5 mmol/L (0.7-2.1) 10/22/16 19:30 Sodium 136 mmol/L (132-148) 10/27/16 06:21 Potassium 4.2 mmol/L (3.6-5.2) 10/27/16 06:21 Chloride 103 mmol/L (98-107) 10/27/16 06:21 Carbon Dioxide 26 mmol/L (22-30) 10/27/16 06:21 Anion Gap 11 (10-20) 10/27/16 06:21 BUN 11 mg/dL (7-17) 10/27/16 06:21 Creatinine 0.6 MG/DL (0.7-1.2) L 10/27/16 06:21 Est GFR ( Amer) > 60 10/27/16 06:21 Est GFR (Non-Af Amer) > 60 10/27/16 06:21 Random Glucose 97 mg/dL (65-105) 10/27/16 06:21 Calcium 8.4 mg/dl (8.6-10.4) L 10/27/16 06:21 Phosphorus 3.5 mg/dL (2.5-4.5) 10/27/16 06:21 Magnesium 2.1 mg/dL (1.6-2.3) 10/27/16 06:21 Total Bilirubin 0.7 mg/dL (0.2-1.3) 10/27/16 06:21 AST 52 U/L (14-36) H D 10/27/16 06:21 ALT 50 U/L (9-52) 10/27/16 06:21 Alkaline Phosphatase 227 U/L (38-126) H 10/27/16 06:21 Total Protein 6.4 g/dL (6.3-8.3) 10/27/16 06:21 Albumin 3.1 g/dL (3.5-5.0) L 10/27/16 06:21 Globulin 3.4 gm/dL (2.2-3.9) 10/27/16 06:21 Albumin/Globulin Ratio 0.9 (1.0-2.1) L 10/27/16 06:21 Procalcitonin 5.07 NG/ML (0.19-0.49) H 10/22/16 22:08 Venous Blood Potassium 4.0 mmol/L (3.6-5.2) 10/22/16 19:30 Urine Color Straw (YELLOW) 10/22/16 19:36 Urine Clarity Clear (Clear) 10/22/16 19:36 Urine pH 6.0 (5.0-8.0) 10/22/16 19:36 Ur Specific [place] 1.013 (1.003-1.030) 10/22/16 19:36 Urine Protein Negative mg/dL (NEGATIVE) 10/22/16 19:36 Urine Glucose (UA) Normal mg/dL (Normal) 10/22/16 19:36 Urine Ketones Negative mg/dL (NEGATIVE) 10/22/16 19:36 Urine Blood Negative (NEGATIVE) 10/22/16 19:36 Urine Nitrate Negative (NEGATIVE) 10/22/16 19:36 Urine Bilirubin Negative (NEGATIVE) 10/22/16 19:36 Urine Urobilinogen Normal mg/dL (0.2-1.0) 10/22/16 19:36 Ur Leukocyte Esterase Neg Cristopher/uL (Negative) 10/22/16 19:36 Urine WBC (Auto) < 1 /hpf (0-5) 10/22/16 19:36 Urine RBC (Auto) < 1 /hpf (0-3) 10/22/16 19:36 Ur Squamous Epith Cells < 1 /hpf (0-5) 10/22/16 19:36 Urine Bacteria Rare (<OCC) 10/22/16 19:36 Fluid Source Pleural/thoracentesi 10/23/16 12:46 Fluid Appearance Sl cloudy (CLEAR) 10/23/16 12:46 Fluid WBC 341.0 /mm3 (0.0-300.0) H 10/23/16 12:46 Fluid RBC 3885.0 /mm3 (0.0-0.0) H 10/23/16 12:46 Fluid Tot Cell Count 100 (0-0) H 10/23/16 12:46 Fluid Neutrophils 35.0 % (0-0) H 10/23/16 12:46 Fluid Lymphocytes 61.0 % (0-0) H 10/23/16 12:46 Fld Monocyte/Macrophag 4 % (0-0) H 10/23/16 12:46 Fluid Diff Path Review 10/23/16 12:46 Fluid Albumin 2.0 g/dL 10/23/16 13:45 Fluid Comment 10/23/16 12:46 Pleural LDH 383 U/L 10/23/16 13:45 Pleural Amylase 20 U/L 10/23/16 13:45 Pleural Fluid CEA 4076.8 ng/mL (<10.0) H 10/23/16 13:45 Attending/Attestation - Attestation I have personally seen and examined this patient.: Yes I have fully participated in the care of the patient.: Yes I have reviewed all pertinent clinical information, including history, physical exam and plan: Yes Notes (Text): 10/28/16 17:36 Patient was seen and examined at bedside She is feeling better and denies any nausea vomiting or diarrhea We will discharge the patient to home and she will follow-up with her oncologist for further treatment I agree with the discharge note by the resident
[2016-10-27 17:48] VITALS: BP 128/81; PULSE 94; TEMP 98.4; O2SAT 95
== END 2016-10-27 20:32 | disposition home or self-care (01) | DRG 82 ==
LOC: C.ER 14:57 → C.9E 19:42 → C.3T 21:06
PROVIDERS: ADMIT Internal Medicine; ATTEND Internal Medicine
PROC: 0W9B3ZZ Drainage of Left Pleural Cavity, Percutaneous Approach (ICD-10-PCS; principal; 2016-10-23)
DX: C78.00 Secondary malignant neoplasm of unspecified lung (principal); J91.0 Malignant pleural effusion; C78.7 Secondary malignant neoplasm of liver and intrahepatic bile duct; C79.51 Secondary malignant neoplasm of bone; C50.919 Malignant neoplasm of unspecified site of unspecified female breast; I10 Essential (primary) hypertension; F17.210 Nicotine dependence, cigarettes, uncomplicated; K21.9 Gastro-esophageal reflux disease without esophagitis; R74.0 Nonspecific elevation of levels of transaminase and lactic acid dehydrogenase [LDH]; Z51.5 Encounter for palliative care

== ENCOUNTER 2016-12-22 11:43 | Emergency (ER) | payer SELFPAY ==
[2016-12-22 11:43] VITALS: BMI 29.1
[2016-12-22 11:53] VITALS: TEMP 97.8
[2016-12-22 13:44] LABS: BASO % 0.3 % (0.0-2.0); HEMATOCRIT 33.6 % (34.0-47.0); LYMPH # 0.9 K/uL (1.0-4.3); LYMPH % 11.3 % (20.0-40.0); MEAN CELL VOLUME 89.6 fL (81.0-99.0); MEAN CORPUSCULAR HEMOGLOBIN 29.7 pg (27.0-31.0); MEAN CORPUSCULAR HGB CONC 33.2 g/dL (33.0-37.0); MONO # 0.2 K/uL (0.0-0.8); MONO % 2.9 % (0.0-10.0); RED CELL DISTRIBUTION WIDTH 14.6 % (11.5-14.5)
[2016-12-22 13:52] LABS: WHITE BLOOD COUNT 8.3 K/uL (4.8-10.8)
[2016-12-22 13:53] LABS: CHLORIDE 109 mmol/L (98-107); SODIUM 143 mmol/L (132-148)
[2016-12-22 13:55] LABS: GFR AFRICAN-AMERICAN > 60
[2016-12-22 13:56] LABS: ALB/GLOB RATIO 0.9 (1.0-2.1); ALKALINE PHOSPHATASE 148 U/L (38-126); ALT/SGPT 22 U/L (9-52); AST/SGOT 24 U/L (14-36); BILIRUBIN,TOTAL 0.5 mg/dL (0.2-1.3); BLOOD UREA NITROGEN 12 mg/dL (7-17); CALCIUM 9.2 mg/dl (8.6-10.4); CARBON DIOXIDE 21 mmol/L (22-30); GLUCOSE,RANDOM 96 mg/dL (65-105); TOTAL PROTEIN 7.4 g/dL (6.3-8.3)
--- NOTE | 2016-12-22 14:10 | C.PDOC ---
History Of Present Illness Patient sent to ED s/p rapid response while getting chemotherapy at the infusion center. Patient has h/o metastatic breast CA, was getting her infusion of docetaxel when she suddenly felt very weak and SOB for several seconds. She denies chest pain, dizziness, headache, palpitations, visual changes, facial droop, slurred speech. Patient states this is not her first infusion of this medication, and she has not previously had adverse reaction. Patient states she thinks the infusion was done "too quickly". Hem/Onc- Dr. Israel Time Seen by Provider: 12/22/16 13:02 Chief Complaint (Nursing): Allergic Reaction History Per: Patient History/Exam Limitations: no limitations Onset/Duration Of Symptoms: Mins Current Symptoms Are (Timing): Better Context: Other (during chemo infusion) Possible Cause: Medication Associated Symptoms: Other (wekaness, sob) Severity: Mild Past Medical History Reviewed: Historical Data, Nursing Documentation, Vital Signs Vital Signs: Last Vital Signs Temp 97.8 F 12/22/16 11:50 Pulse 94 H 12/22/16 14:52 Resp 17 12/22/16 14:52 BP 159/102 H 12/22/16 14:52 Pulse Ox 95 12/22/16 14:52 - Medical History PMH: Arthritis, HTN Surgical History: Appendectomy - [facility] Procedures DRAINAGE OF LEFT PLEURAL CAVITY, PERCUTANEOUS APPROACH (10/22/16) EXCISION OF RIGHT LOBE LIVER, PERCUTANEOUS APPROACH, DIAGN (06/15/16) Family History: States: No Known Family Hx - Social History Hx Alcohol Use: No Hx Substance Use: No - Immunization History Hx Tetanus Toxoid Vaccination: No Hx Influenza Vaccination: No Hx Pneumococcal Vaccination: No Review Of Systems Except As Marked, All Systems Reviewed And Found Negative. Constitutional: Positive for: Weakness. Negative for: Fever, Chills Cardiovascular: Negative for: Chest Pain, Palpitations Respiratory: Positive for: Shortness of Breath. Negative for: Cough Gastrointestinal: Negative for: Nausea, Vomiting, Abdominal Pain, Diarrhea Neurological: Negative for: Weakness, Numbness, Altered Mental Status, Headache , Dizziness Physical Exam - Physical Exam Appears: Well, Non-toxic, No Acute Distress Skin: Normal Color, Warm, Dry Head: Normacephalic Eye(s): bilateral: Normal Inspection Oral Mucosa: Moist Cardiovascular: Rhythm Regular Respiratory: Normal Breath Sounds, No Rales, No Rhonchi, No Wheezing Gastrointestinal/Abdominal: Normal Exam, Bowel Sounds, Soft, No Tenderness Extremity: Normal ROM, No Pedal Edema, No Calf Tenderness Neurological/Psych: Oriented x3, Normal Speech, Normal Cognition ED Course And Treatment - Laboratory Results Result Diagrams: 12/22/16 13:38 12/22/16 13:38 ECG: Interpreted By Me, Viewed By Me (NSR 98 bpm, normal axis, T wave flattening aVF, V3-V6) ECG Interpretation: No Acute Changes O2 Sat by Pulse Oximetry: 96 (RA) Pulse Ox Interpretation: Normal - Radiology CXR: Interpreted by Me, Viewed By Me (left sided effusion (small), no infiltrate ) Progress Note: Blood work, EKG, CXR ordered and reviewed. Reevaluation Time: 14:30 Reassessment Condition: Improved (On reassessment, patient states she feels well , has no current symptoms. She is comfortable being discharged home, and was instructed to follow up with Dr. Israel in the office in 1-2 days. She understands she should return to ED if she has any concerning symptoms.) - Physician Consult Information Outcome Of Conversation: Discussed patient with Dr. Israel, he is in agreement that patient can be discharged home and follow up with him in the office. Disposition Counseled Patient/Family Regarding: Studies Performed, Diagnosis, Need For Followup - Disposition Referrals: Dimitris Israel MD [Staff Provider] - Dilshad Romano DO [Resident] - Disposition: HOME/ ROUTINE Disposition Time: 14:30 Condition: STABLE Additional Instructions: FOLLOW UP WITH BRE WITHIN 1 WEEK RETURN TO EMERGENCY ROOM IF YOU HAVE ANY CONCERNING SYMPTOMS Forms: [facility] [employer] [facility] (Upper Sorbian), General Discharge Instructions Print Language: MALAGASY - Clinical Impression Clinical Impression: Medication reaction
[2016-12-22 14:52] VITALS: BP 159/102; PULSE 94; RESP 17
--- NOTE | 2016-12-22 15:54 | RAD ---
HISTORY: SOB COMPARISON: Chest x-ray performed 10/22/16 TECHNIQUE: Chest, one view. FINDINGS: LUNGS: Persistent interstitial prominence may reflect infection or edema. Small left pleural effusion and or atelectasis/infiltrate. No definite pneumothorax. Please note that chest x-ray has limited sensitivity for the detection of pulmonary masses. CARDIOVASCULAR: Cardiomegaly. OSSEOUS STRUCTURES: Degenerative changes. VISUALIZED UPPER ABDOMEN: Unremarkable. OTHER FINDINGS: None. IMPRESSION: Cardiomegaly. Persistent interstitial prominence may reflect infection or edema. Small left pleural effusion and or atelectasis/infiltrate.
--- NOTE | 2016-12-22 18:24 | CARD ---
APPROVED REPORT EKG Measurement Heart [id number] <Conclusion> Normal sinus rhythm Nonspecific T wave abnormality Abnormal ECG
[2016-12-28 05:02] VITALS: O2SAT 96
== END 2016-12-22 15:31 | disposition home or self-care (01) ==
LOC: C.ER 11:43
DX: R53.1 Weakness (principal); R06.02 Shortness of breath; T45.1X5A Adverse effect of antineoplastic and immunosuppressive drugs, initial encounter; Y92.238 Other place in hospital as the place of occurrence of the external cause

== ENCOUNTER 2017-04-28 19:55 | Observation (INO) | payer OTHER ==
[2017-04-28 19:55] VITALS: BMI 27.8
[2017-04-28] MEDS ORDERED: Oxycodone/Acetaminophen 5/325 mg Tab PO STA (22:20)
[2017-04-28] MEDS ORDERED: Sodium Chloride 0.9% 1,000 ML IV ONE (22:20)
[2017-04-28] MEDS ORDERED: Oxycodone/Acetaminophen 5/325 mg Tab ONE (22:27)
[2017-04-28] MEDS ORDERED: Sodium Chloride 0.9% 1,000 ML ONE (22:27)
[2017-04-28] MEDS ORDERED: Iodixanol 320 MG/ML 100 ML BOTTLE IV ONE (22:30)
--- NOTE | 2017-04-28 22:34 | C.PDOC ---
History Of Present Illness <Shira Javier N - Last Filed: 04/29/17 02:33> <Wally Segura - Last Filed: 05/01/17 00:09> Patient is a 62 y/o female who presents to the ED with chronic lower back pain for the last month. Patient has a Hx of right breast CA that was diagnosed in 2009 s/p lumpectomy and chemotherapy. Patient did not receive mastectomy or radiation under Dr. Israel. Notes trying to reach Dr. Israel [employer] TECHNICIAN, but he is away on vacation. No other physical complaints at this time. (Wally Segura) <ModestovikramromanyeeparmjitShira N - Last Filed: 04/29/17 02:33> History Per: Patient History/Exam Limitations: no limitations Onset/Duration Of Symptoms: Days (1 month) Current Symptoms Are (Timing): Still Present Recent travel outside of the [place]: No <Wally Segura - Last Filed: 05/01/17 00:09> Time Seen by Provider: 04/28/17 22:00 Chief Complaint (Nursing): Back Pain Past Medical History Reviewed: Historical Data, Nursing Documentation, Vital Signs - Medical History PMH: Arthritis, HTN Denies: End Stage Renal Disease, Chronic Kidney Disease Other PMH: right breast CA diagnosed in 2009 Surgical History: Appendectomy Other Surgeries: lumpectomy Family History: States: No Known Family Hx - Social History Hx Alcohol Use: No Hx Substance Use: No - Immunization History Hx Tetanus Toxoid Vaccination: No Hx Influenza Vaccination: No Hx Pneumococcal Vaccination: No <ColtonParamjitDylan - Last Filed: 05/01/17 00:09> Vital Signs: Last Vital Signs Temp 97.9 F 04/30/17 07:00 Pulse 87 04/30/17 07:00 Resp 20 04/30/17 07:00 BP 115/75 04/30/17 07:00 Pulse Ox 98 05/01/17 00:04 - [facility] Procedures DRAINAGE OF LEFT PLEURAL CAVITY, PERCUTANEOUS APPROACH (10/22/16) EXCISION OF RIGHT LOBE LIVER, PERCUTANEOUS APPROACH, DIAGN (06/15/16) Review Of Systems Except As Marked, All Systems Reviewed And Found Negative. Constitutional: Negative for: Fever, Chills Respiratory: Negative for: Shortness of Breath Gastrointestinal: Negative for: Nausea, Vomiting, Diarrhea Musculoskeletal: Positive for: Back Pain (lower back) <Wally Segura - Last Filed: 05/01/17 00:09> Physical Exam - Physical Exam Appears: Well, Non-toxic, No Acute Distress, Other (elderly appearing) Skin: Normal Color Head: Atraumatic, Normacephalic Eye(s): bilateral: Normal Inspection Oral Mucosa: Moist Lymphatic: Adenopathy, Other (lympothopy right axillary region) Chest: Symmetrical Cardiovascular: Rhythm Regular, No Murmur Respiratory: Normal Breath Sounds, No Rales, No Rhonchi, No Wheezing Back: Normal Inspection Neurological/Psych: Oriented x3, Normal Speech, Normal Cognition <Wally Segura - Last Filed: 05/01/17 00:09> ED Course And Treatment - Laboratory Results Result Diagrams: 04/28/17 22:27 04/28/17 22:27 <Shira Javier N - Last Filed: 04/29/17 02:33> - Laboratory Results Result Diagrams: 04/30/17 06:31 04/30/17 08:42 Lab Interpretation: Abnormal (+ elevated d-dimer) O2 Sat by Pulse Oximetry: 98 (room air) Pulse Ox Interpretation: Normal - Radiology CXR: Interpreted by Md CXR Interpretation: Yes: No Acute Disease - CT Scan/US CTA C/A/P Other Rad Studies (CT/US): Radiology Report Reviewed Progress Note: CT chest/abd, EKG, blood work, UA ordered. Motrin and IV fluids administered. Reevaluation Time: 23:00 Reassessment Condition: Improved <Wally Segura - Last Filed: 05/01/17 00:09> Medical Decision Making <Shira Javier N - Last Filed: 04/29/17 02:33> <Wally Segura - Last Filed: 05/01/17 00:09> Medical Decision Making: signed over to Dr. Vickers @ [phone] and dispo (Wally Segura) Disposition <Shira Javier N - Last Filed: 04/29/17 02:33> Doctor Will See Patient In The: Hospital Counseled Patient/Family Regarding: Studies Performed, Diagnosis - Disposition Disposition Time: 03:00 <Wally Segura - Last Filed: 05/01/17 00:09> - Disposition Disposition: HOSPITALIZED Condition: GOOD - Clinical Impression Clinical Impression: Metastatic breast cancer, Lytic bone lesions on xray <Shira Javier N - Last Filed: 04/29/17 02:33> - Scribe Statement The provider has reviewed the documentation as recorded by the Scribe <Wally Segura - Last Filed: 05/01/17 00:09> - Scribe Statement Katya Morelos All medical record entries made by the Scribe were at my direction and personally dictated by me. I have reviewed the chart and agree that the record accurately reflects my personal performance of the history, physical exam, medical decision making, and the department course for this patient. I have also personally directed, reviewed, and agree with the discharge instructions and disposition. (Wally Segura) Addendum <Shira Javier - Last Filed: 04/29/17 02:33> <Wally Segura - Last Filed: 05/01/17 00:09> Addendum: 04/29/17 01:38 EKG findings: * Normal sinus rhythm at 89 bpm * WY: 154 * QRS: 80 * QT: 318 * QTC: 386 * No ischemic changes 04/29/17 02:33 CTA Chest Findings: * Multiple pleural and subpleural metastatic lesions in left and right lung * Destruction of right fourth rib * Lesions on right eighth rib * Lytic and blastic lesions on thoracic and lumbar spine * Liver mestastases No PE administered CTA Chest Report Impression IMPRESSION: 1. There has been slight interval enlargement of a lesion in the left breast on series 3, image 62 which is marked with a surgical clip, previously measuring 18 mm in greatest dimension and currently 20 mm. There are a few smaller nodular densities in both breasts as well. Please correlate clinically and if indicated followup can be obtained. 2. No hilar adenopathy. There are some borderline mediastinal subcarinal nodes without jana adenopathy. 3. Small hiatal hernia. Questionable mild wall thickening involving portions of the esophagus versus underdistention. Please correlate clinically. 4. No evidence for large acute pulmonary embolism. Some of the smaller branches are suboptimally evaluated due to motion artifact. 5. There are several small subpleural and pleural nodular opacities in the left upper lobe. For reference, one of these measures 8 mm in greatest dimension on series 3, image 20. A second lesion measures 11 mm anteriorly on series 3, image 22. A third lesion measures 11 mm on series 3, image 38. There are additional similar and smaller lesions in the vicinity as well. There are a few smaller lesions in the right upper lobe and right middle lobe as well. These lesions are suspicious for metastases. 6. There is an expansile destructive lesion involving the right fourth rib laterally. This measures 2.6 CM in greatest dimension on series 3, image 28.7. Again seen are numerous hypodense lesions in the liver compatible with metastases. However, these appear less prominent and less numerous on the current study than on the prior study dated 10/22/2016. Please correlate clinically. 8. There is a vague expansile lesion of the right eighth ribs postero- laterally. This however appears less prominent currently than on the prior study dated 10/22/2016. 9. Scattered lytic and blastic lesions are again seen in the thoracic and lumbar spine although these appear overall slightly less prominent currently than on 10/22/2016. 10. Additional incidental and/or chronic findings as described. 04/29/17 02:[address] Israel at 2:30am; Dr. Israel agrees with admission overnight for pain control and will assess in the morning. (Shira Javier)
[2017-04-28 22:45] LABS: BASO % 0.5 % (0.0-2.0); EOS # 0.3 K/uL (0.0-0.7); EOS % 9.7 % (0.0-4.0); HEMATOCRIT 35.5 % (34.0-47.0); LYMPH # 1.2 K/uL (1.0-4.3); LYMPH % 44.1 % (20.0-40.0); MEAN CELL VOLUME 92.3 fL (81.0-99.0); MEAN CORPUSCULAR HEMOGLOBIN 30.7 pg (27.0-31.0); MEAN CORPUSCULAR HGB CONC 33.3 g/dL (33.0-37.0); MEAN PLATELET VOLUME 9.4 fL (7.2-11.7); MONO # 0.3 K/uL (0.0-0.8); MONO % 11.4 % (0.0-10.0); NRBC % 0.2 % (0.0-2.0); RED CELL DISTRIBUTION WIDTH 15.5 % (11.5-14.5); WHITE BLOOD COUNT 2.8 K/uL (4.8-10.8)
[2017-04-28 22:47] LABS: ALB/GLOB RATIO 1.2 (1.0-2.1); ALKALINE PHOSPHATASE 101 U/L (38-126); ALT/SGPT 24 U/L (9-52); AST/SGOT 31 U/L (14-36); BILIRUBIN,TOTAL 0.5 mg/dL (0.2-1.3); BLOOD UREA NITROGEN 14 mg/dL (7-17); CALCIUM 8.7 mg/dl (8.6-10.4); CARBON DIOXIDE 28 mmol/L (22-30); CHLORIDE 103 mmol/L (98-107); GFR AFRICAN-AMERICAN > 60; GLUCOSE,RANDOM 87 mg/dL (65-105); POTASSIUM 3.4 mmol/L (3.6-5.2); SODIUM 138 mmol/L (132-148); TOTAL PROTEIN 7.2 g/dL (6.3-8.3)
[2017-04-29 00:28] LABS: RBC URINE < 1 /hpf (0-3); URINE BILIRUBIN NEGATIVE (NEGATIVE); URINE BLOOD NEGATIVE (NEGATIVE); URINE COLOR Colorless (YELLOW); URINE GLUCOSE (UA) NORMAL (Normal); URINE KETONE NEGATIVE (NEGATIVE); URINE LEUKOCYTE ESTERASE NEG Leu/uL (Negative); URINE PROTEIN NEGATIVE (NEGATIVE); URINE UROBILINOGEN NORMAL mg/dL (0.2-1.0); WBC URINE < 1 /hpf (0-5)
--- NOTE | 2017-04-29 01:09 | CT ---
EXAM: CT Angiography Chest With Intravenous Contrast CT Angiography Abdomen and Pelvis With Intravenous Contrast CLINICAL HISTORY: 62 years old, female; Pain; Chest pain; Abdominal pain and other: Body pain; Acute; Prior surgery; Surgery type: Breast surgery, ca; Patient HX: 10-22-16; Additional info: Acute/chronic lbp, h/o r breast ca with mets ? met. Doctor want pe alone and abd&plvic venous , and bone recone too TECHNIQUE: Axial computed tomographic angiography images of the chest, abdomen and pelvis with intravenous contrast using CT angiography protocol. All CT scans at this facility use one or more dose reduction techniques, viz.: automated exposure control; ma/kV adjustment per patient size (including targeted exams where dose is matched to indication; i.e. head); or iterative reconstruction technique. MIP reconstructed images were created and reviewed. Coronal and sagittal reformatted images were created and reviewed. CONTRAST: 100 mL of [id number] administered intravenously. COMPARISON: CT - ABD PELVIS IV CONTRAST ONLY 2016-10-22 22:27 FINDINGS: VASCULATURE: Aorta: Thoracic aorta is unremarkable. The aorta demonstrates moderate atherosclerotic calcification. No aortic aneurysm. No dissection. Pulmonary arteries: No evidence for large acute pulmonary embolism. Some of the smaller branches are suboptimally evaluated due to motion artifact. Great vessels of aortic arch: No acute findings. No dissection. No arterial occlusion or significant stenosis. Celiac trunk and mesenteric arteries: No acute findings. No occlusion or significant stenosis. Renal arteries: No acute findings. No occlusion or significant stenosis. Iliac arteries: No acute findings. No occlusion or significant stenosis. CHEST: Lungs: There are several small subpleural and pleural nodular opacities in the left upper lobe. For reference, one of these measures 8 mm in greatest dimension on series 3, image 20. A second lesion measures 11 mm anteriorly on series 3, image 22. A third lesion measures 11 mm on series 3, image 38. There are additional similar and smaller lesions in the vicinity as well. There are a few smaller lesions in the right upper lobe and right middle lobe as well. These lesions are suspicious for metastases. Mild biapical scarring. Pleural space: Unremarkable. No significant effusion. No pneumothorax. Heart: The heart is not enlarged. No significant pericardial effusion. Mediastinum: Small hiatal hernia. Questionable mild wall thickening involving portions of the esophagus versus underdistention. Please correlate clinically. Small hiatal hernia. Thyroid: Thyroid as visualized is normal in size and position. ABDOMEN: Liver: Again seen are numerous hypodense lesions in the liver compatible with metastases. However, these appear less prominent and less numerous on the current study than on the prior study dated 10/22/2016. Please correlate clinically. Gallbladder and bile ducts: The gallbladder is contracted but otherwise normal. No calcified stones. No ductal dilation. Pancreas: The pancreas is normal. No ductal dilation. Spleen: The spleen is normal. Adrenals: The adrenal glands are normal. Kidneys and ureters: The kidneys are normal. No hydronephrosis. No solid mass. Stomach and bowel: The stomach is normal. Colonic constipation is present. There is no evidence of intestinal obstruction. No mucosal thickening. Appendix: No findings to suggest acute appendicitis. PELVIS: Bladder: The bladder is normal. Reproductive: The uterus is normal. CHEST, ABDOMEN and PELVIS: Intraperitoneal space: There is no evidence of free intraperitoneal fluid. There is no free intraperitoneal air. Bones/joints: There is an expansile destructive lesion involving the right fourth rib laterally. This measures 2.6 CM in greatest dimension on series 3, image 28. There is a vague expansile lesion of the right eighth ribs postero-laterally. This however appears less prominent currently than on the prior study dated 10/22/2016. Scattered lytic and blastic lesions are again seen in the thoracic and lumbar spine although these appear overall slightly less prominent currently than on 10/22/2016. There are moderate degenerative changes present. There is marked diffuse osteopenia. No acute fracture. No dislocation. Soft tissues: There has been slight interval enlargement of a lesion in the left breast on series 3, image 62 which is marked with a surgical clip, previously measuring 18 mm in greatest dimension and currently 20 mm. There are a few smaller nodular densities in both breasts as well. Please correlate clinically and if indicated followup can be obtained. There are postsurgical changes in the left breast. Lymph nodes: No hilar adenopathy. There are some borderline mediastinal subcarinal nodes without jana adenopathy. There is no axillary adenopathy. There are changes of prior lymph node dissection of the left axilla. There is no evidence of lymphadenopathy. IMPRESSION: 1. There has been slight interval enlargement of a lesion in the left breast on series 3, image 62 which is marked with a surgical clip, previously measuring 18 mm in greatest dimension and currently 20 mm. There are a few smaller nodular densities in both breasts as well. Please correlate clinically and if indicated followup can be obtained. 2. No hilar adenopathy. There are some borderline mediastinal subcarinal nodes without jana adenopathy. 3. Small hiatal hernia. Questionable mild wall thickening involving portions of the esophagus versus underdistention. Please correlate clinically. 4. No evidence for large acute pulmonary embolism. Some of the smaller branches are suboptimally evaluated due to motion artifact. 5. There are several small subpleural and pleural nodular opacities in the left upper lobe. For reference, one of these measures 8 mm in greatest dimension on series 3, image 20. A second lesion measures 11 mm anteriorly on series 3, image 22. A third lesion measures 11 mm on series 3, image 38. There are additional similar and smaller lesions in the vicinity as well. There are a few smaller lesions in the right upper lobe and right middle lobe as well. These lesions are suspicious for metastases. 6. There is an expansile destructive lesion involving the right fourth rib laterally. This measures 2.6 CM in greatest dimension on series 3, image 28. 7. Again seen are numerous hypodense lesions in the liver compatible with metastases. However, these appear less prominent and less numerous on the current study than on the prior study dated 10/22/2016. Please correlate clinically. 8. There is a vague expansile lesion of the right eighth ribs postero-laterally. This however appears less prominent currently than on the prior study dated 10/22/2016. 9. Scattered lytic and blastic lesions are again seen in the thoracic and lumbar spine although these appear overall slightly less prominent currently than on 10/22/2016. 10. Additional incidental and/or chronic findings as described.
--- NOTE | 2017-04-29 03:15 | CP.PCM.HP ---
<Seven Mahan - Last Filed: 04/29/17 03:24> History of Present Illness - History of Present Illness History of Present Illness: Medicine H/P CC: Back Pain HPI: Patient is a pleasant 62F with a PMH of metastatic breast cancer on chemo for the past [address] shows mets to the liver, lumbar and thoracic spine and lungs. Patient states she has been having pain for approx 3 months and takes percocet for the pain. It has progressively became worse. That is her only complaint. Besides that she tolerated her chemo well. She is well aware of her disease. She had breast cancer 7 years ago with a LN dissection at that time. It has as of 3 months ago reccured with metastatic disease. No chest pain , SOB, Fevers, Chills Onc: Jhonatan ROS: Per HPI PMH: Metastatic Breast CA PSH: LN Dissection 7 years ago FH: bother brother and cousin have had cancer, all passed. Mother and father healthy SH: Never smoked, does not drink, no drugs Meds: Percocet All: cefepime, honey, octopus, docetaxel Present on Admission - Present on Admission Any Indicators Present on Admission: No Review of Systems - Review of Systems Review of Systems: per hpi Past Patient History - Infectious Disease Hx of Infectious Diseases: None - Past Medical History & Family History Past Medical History?: Yes - Past Social History Smoking Status: Former Smoker - CARDIAC Hx Hypertension: Yes - PULMONARY Hx Respiratory Disorders: No - NEUROLOGICAL Hx Neurological Disorder: No - HEENT Hx HEENT Problems: No - RENAL Hx Chronic Kidney Disease: No - ENDOCRINE/METABOLIC Hx Endocrine Disorders: No - HEMATOLOGICAL/ONCOLOGICAL Hx Blood Disorders: Yes Hx Cancer: Yes (Breast with mets to liver, Rt rib, spine) - INTEGUMENTARY Hx Dermatological Problems: No - MUSCULOSKELETAL/RHEUMATOLOGICAL Hx Arthritis: Yes - GASTROINTESTINAL Hx Gastrointestinal Disorders: Yes Hx Gastroesophageal Reflux: Yes - GENITOURINARY/GYNECOLOGICAL Hx Genitourinary Disorders: No - PSYCHIATRIC Hx Substance Use: No - SURGICAL HISTORY Hx Appendectomy: Yes - ANESTHESIA Hx Anesthesia: Yes Hx Anesthesia Reactions: No Hx Malignant Hyperthermia: No Meds Allergies/Adverse Reactions: Allergies Allergy/AdvReac Type Severity Reaction Status Date / Time cefepime [From Maxipime] Allergy REDNESS Verified 10/22/16 19:29 honey Allergy Verified 10/22/16 15:18 octopus Allergy ANAPHYLAXIS Verified 06/14/16 21:46 docetaxel AdvReac SEVERE LOW Verified 12/22/16 12:20 BACK PAIN; RESPIRATORY DISTRESS Physical Exam - Constitutional Appears: Well, Non-toxic, No Acute Distress - Head Exam Head Exam: ATRAUMATIC, NORMAL INSPECTION, NORMOCEPHALIC - Eye Exam Eye Exam: EOMI Pupil Exam: NORMAL ACCOMODATION - ENT Exam ENT Exam: Mucous Membranes Moist - Respiratory Exam Respiratory Exam: Clear to Auscultation Bilateral, NORMAL BREATHING PATTERN - Cardiovascular Exam Cardiovascular Exam: REGULAR RHYTHM - GI/Abdominal Exam GI & Abdominal Exam: Normal Bowel Sounds, Soft. absent: Distended, Tenderness - Extremities Exam Extremities exam: Negative for: joint swelling, tenderness - Neurological Exam Neurological exam: Alert, Oriented x3 - Psychiatric Exam Psychiatric exam: Normal Affect, Normal Mood - Skin Skin Exam: Dry, Intact, Normal Color, Warm Results - Vital Signs Recent Vital Signs: Last Vital Signs Temp 98 F 04/28/17 20:36 Pulse 85 04/29/17 00:40 Resp 16 04/29/17 00:40 BP 125/82 04/29/17 00:40 Pulse Ox 95 04/29/17 00:40 - Labs Result Diagrams: 04/28/17 22:27 04/28/17 22:27 Labs: Laboratory Results - last 24 hr 04/28/17 04/28/17 04/28/17 22:27 22:27 22:27 WBC 2.8 L D RBC 3.84 Hgb 11.8 Hct 35.5 MCV 92.3 MCH 30.7 MCHC 33.3 RDW 15.5 H Plt Count 224 MPV 9.4 Neut % (Auto) 34.3 L Lymph % (Auto) 44.1 H [place] % (Auto) 11.4 H Eos % (Auto) 9.7 H Baso % (Auto) 0.5 Neut # 1.0 L Lymph # 1.2 [place] # 0.3 Eos # 0.3 Baso # 0.0 PT 11.9 INR 1.0 APTT 29 D-Dimer, Quantitative 678 H Sodium 138 Potassium 3.4 L Chloride 103 Carbon Dioxide 28 Anion Gap 11 BUN 14 Creatinine 0.6 L Est GFR ( Amer) > 60 Est GFR (Non-Af Amer) > 60 Random Glucose 87 Calcium 8.7 Total Bilirubin 0.5 AST 31 ALT 24 Alkaline Phosphatase 101 Troponin I 0.0260 Total Protein 7.2 Albumin 3.9 Globulin 3.3 Albumin/Globulin Ratio 1.2 Urine Color Urine Clarity Urine pH Ur Specific [place] Urine Protein Urine Glucose (UA) Urine Ketones Urine Blood Urine Nitrate Urine Bilirubin Urine Urobilinogen Ur Leukocyte Esterase Urine WBC (Auto) Urine RBC (Auto) Ur Squamous Epith Cells 04/29/17 00:22 WBC RBC Hgb Hct MCV MCH MCHC RDW Plt Count MPV Neut % (Auto) Lymph % (Auto) [place] % (Auto) Eos % (Auto) Baso % (Auto) Neut # Lymph # [place] # Eos # Baso # PT INR APTT D-Dimer, Quantitative Sodium Potassium Chloride Carbon Dioxide Anion Gap BUN Creatinine Est GFR ( Amer) Est GFR (Non-Af Amer) Random Glucose Calcium Total Bilirubin AST ALT Alkaline Phosphatase Troponin I Total Protein Albumin Globulin Albumin/Globulin Ratio Urine Color Colorless Urine Clarity Clear Urine pH 7.0 Ur Specific [place] 1.017 Urine Protein Negative Urine Glucose (UA) Normal Urine Ketones Negative Urine Blood Negative Urine Nitrate Negative Urine Bilirubin Negative Urine Urobilinogen Normal Ur Leukocyte Esterase Neg Urine WBC (Auto) < 1 Urine RBC (Auto) < 1 Ur Squamous Epith Cells < 1 Assessment & Plan (1) Metastatic breast cancer Assessment and Plan: CT shows metastatic disease to liver, lung and bone Onc ([place]) F/U plan with heme/onc Status: Chronic Priority: Medium (2) Back pain Assessment and Plan: Percocet 2 tabs 5/325 Q4 PRN Status: Chronic Priority: Medium (3) Prophylactic measure Assessment and Plan: Lovenox 40 SC QD Status: Acute <Joe Campos - Last Filed: 04/29/17 06:44> Results - Vital Signs Recent Vital Signs: Last Vital Signs Temp 98.3 F 04/29/17 04:29 Pulse 84 04/29/17 04:29 Resp 20 04/29/17 04:53 BP 140/95 H 04/29/17 04:29 Pulse Ox 97 04/29/17 04:29 - Labs Result Diagrams: 04/28/17 22:27 04/28/17 22:27 Labs: Laboratory Results - last 24 hr 04/28/17 04/28/17 04/28/17 22:27 22:27 22:27 WBC 2.8 L D RBC 3.84 Hgb 11.8 Hct 35.5 MCV 92.3 MCH 30.7 MCHC 33.3 RDW 15.5 H Plt Count 224 MPV 9.4 Neut % (Auto) 34.3 L Lymph % (Auto) 44.1 H [place] % (Auto) 11.4 H Eos % (Auto) 9.7 H Baso % (Auto) 0.5 Neut # 1.0 L Lymph # 1.2 [place] # 0.3 Eos # 0.3 Baso # 0.0 PT 11.9 INR 1.0 APTT 29 D-Dimer, Quantitative 678 H Sodium 138 Potassium 3.4 L Chloride 103 Carbon Dioxide 28 Anion Gap 11 BUN 14 Creatinine 0.6 L Est GFR ( Amer) > 60 Est GFR (Non-Af Amer) > 60 Random Glucose 87 Calcium 8.7 Total Bilirubin 0.5 AST 31 ALT 24 Alkaline Phosphatase 101 Troponin I 0.0260 Total Protein 7.2 Albumin 3.9 Globulin 3.3 Albumin/Globulin Ratio 1.2 Urine Color Urine Clarity Urine pH Ur Specific [place] Urine Protein Urine Glucose (UA) Urine Ketones Urine Blood Urine Nitrate Urine Bilirubin Urine Urobilinogen Ur Leukocyte Esterase Urine WBC (Auto) Urine RBC (Auto) Ur Squamous Epith Cells 04/29/17 00:22 WBC RBC Hgb Hct MCV MCH MCHC RDW Plt Count MPV Neut % (Auto) Lymph % (Auto) [place] % (Auto) Eos % (Auto) Baso % (Auto) Neut # Lymph # [place] # Eos # Baso # PT INR APTT D-Dimer, Quantitative Sodium Potassium Chloride Carbon Dioxide Anion Gap BUN Creatinine Est GFR ( Amer) Est GFR (Non-Af Amer) Random Glucose Calcium Total Bilirubin AST ALT Alkaline Phosphatase Troponin I Total Protein Albumin Globulin Albumin/Globulin Ratio Urine Color Colorless Urine Clarity Clear Urine pH 7.0 Ur Specific [place] 1.017 Urine Protein Negative Urine Glucose (UA) Normal Urine Ketones Negative Urine Blood Negative Urine Nitrate Negative Urine Bilirubin Negative Urine Urobilinogen Normal Ur Leukocyte Esterase Neg Urine WBC (Auto) < 1 Urine RBC (Auto) < 1 Ur Squamous Epith Cells < 1 Assessment & Plan - Date & Time Date: 04/29/17 (I have seen and examined the patient. I agree with the findings and plan of care as documented by Dr. Mahan. Patient with metastatic breast cancer with more back pain. Back pain likely associated with metastatic lesions. Symptomatic treatment. Will continue to contact patient's heme/onc physician and discuss moving forward. Monitor for acute changes.) Time: 06:43 Attending/Attestation - Attestation I have personally seen and examined this patient.: Yes I have fully participated in the care of the patient.: Yes I have reviewed all pertinent clinical information: Yes
[2017-04-29] MEDS ORDERED: Potassium Chloride 20 mEq ER Tab PO STA (09:04)
[2017-04-29] MEDS: Enoxaparin 40 mg Syringe SC SCH (09:51)
--- NOTE | 2017-04-29 11:35 | VASCLAB ---
PROCEDURE: Lower Extremity Venous Duplex Exam. HISTORY: Leg swelling PRIORS: None. TECHNIQUE: Bilateral common femoral, femoral, popliteal and posterior tibial, peroneal and great saphenous veins were evaluated. Flow was assessed with color Doppler, compressibility, assessment of phasic flow and augmentation response. Report prepared by RON Valero, RVT FINDINGS: RIGHT: 1. Common Femoral Vein: 1.1. Compressibility - Fully compressible: Thrombus - None : Flow - Phasic: Augmentation -Normal: Reflux - None. 2. Femoral Vein: 2.1. Compressibility - Fully compressible: Thrombus - None : Flow - Phasic: Augmentation -Normal: Reflux - None. 3. Popliteal Vein: 3.1. Compressibility - Fully compressible: Thrombus - None : Flow - Phasic: Augmentation -Normal: Reflux - None. 4. Posterior Tibial Vein: 4.1. Compressibility - Fully compressible: Thrombus - None: Flow - Phasic: Augmentation -Normal: Reflux - None. 5. Peroneal Vein: 5.1. Compressibility - Fully compressible: Thrombus - None: Flow - Phasic: Augmentation -Normal: Reflux - None. 6. Great Saphenous Vein: 6.1. Compressibility - Fully compressible: Thrombus - None: Flow - Phasic: Augmentation - Normal: Reflux - None. LEFT: 1. Common Femoral Vein: 1.1. Compressibility - Fully compressible: Thrombus - None: Flow - Phasic: Augmentation -Normal: Reflux - None. 2. Femoral Vein: 2.1. Compressibility - Fully compressible: Thrombus - None: Flow - Phasic: Augmentation -Normal: Reflux - None. 3. Popliteal Vein: 3.1. Compressibility - Fully compressible: Thrombus - None : Flow - Phasic: Augmentation -Normal: Reflux - None. 4. Posterior Tibial Vein: 4.1. Compressibility - Fully compressible: Thrombus - None: Flow - Phasic: Augmentation -Normal: Reflux - None. 5. Peroneal Vein: 5.1. Compressibility - Fully compressible: Thrombus - None: Flow - Phasic: Augmentation -Normal: Reflux - None. 6. Great Saphenous Vein: 6.1. Compressibility - Fully compressible: Thrombus - None: Flow - Phasic: Augmentation - Normal: Reflux - None. OTHER FINDINGS: Right: None significant. Left: None significant. IMPRESSION: Right: No evidence of deep or superficial vein thrombosis of the right lower extremity. Normal valve function noted of the right side. Left: No evidence of deep or superficial vein thrombosis of the left lower extremity. Normal valve function noted of the left side.
--- NOTE | 2017-04-29 15:01 | CON ---
DATE: ONCOLOGY CONSULTATION HISTORY OF PRESENT ILLNESS: This is a 62-year-old woman with known breast cancer, widely metastatic to her liver, to her lungs, to her lymph nodes, and to her bones. She was treated originally in [place] about 5 years ago and refused to take further chemotherapy or medications. I had been seeing her now for the last year and a half. She has been on Herceptin chemotherapy for the last, probably, 9 months with Perjeta, Herceptin, and Taxotere. As a matter of fact, I just saw her about 2 weeks ago, she was doing fine. However, her last blood test showed a rising CEA, which was before steadily going down and now she comes in with the back pain, that she has had in the past. PHYSICAL EXAMINATION: SKIN: No lesion. HEENT: Anicteric. NODES: Nonpalpable in the axillary, cervical, supraclavicular, or inguinal regions. LUNGS: Clear at present. No vertebral tenderness. HEART: S1, S2. ABDOMEN: Shows no liver, no spleen. EXTREMITIES: No edema. Homans sign negative. CENTRAL NERVOUS SYSTEM: No focal findings. At this point, just pain control and I would advise the followin. Decadron 4 mg p.o. b.i.d. 2. Percocet 5 mg p.o. q. 4 hours p.r.n. I told her that after she gets discharged, to see me in the office on and I will see about the pain medicines as well as changing her chemotherapy. So, at this point, once she is put on these two medications, from my point of view, she can be discharged. She knows to see me on . Dimitris Israel MD
--- NOTE | 2017-04-29 17:22 | CP.PCM.PN ---
Subjective - Date & Time of Evaluation Date of Evaluation: 04/29/17 Time of Evaluation: 09:00 - Subjective Subjective: Medicine Progress Note: Hospitalist Service Patient seen and examined at bedside. Per nursing no acute events overnight. Patient states that she has been having low back pain for the past few months which has worsened to the point where she is having difficulty walking. Pain scale 8/10. Patient currently receiving chemotherapy for breast CA with metastasis. Last session was 1 week ago. Denies headaches, dizziness, cp, palpitations, sob, abdominal pain, urinary symptoms. Objective - Vital Signs/Intake and Output Vital Signs (last 24 hours): Temp Pulse Resp BP Pulse Ox 98 F 80 18 145/93 H 98 04/29/17 15:42 04/29/17 15:42 04/29/17 15:42 04/29/17 15:42 04/29/17 15:42 - Medications Medications: Current Medications Dexamethasone (Decadron) 4 mg PO BID [facility] Last Admin: 04/29/17 09:51 Dose: 4 mg Docusate Sodium (Colace) 100 mg PO BID [facility] Last Admin: 04/29/17 09:51 Dose: 100 mg Enoxaparin Sodium (Lovenox) 40 mg SC DAILY [facility] Last Admin: 04/29/17 09:51 Dose: 40 mg Ondansetron HCl (Zofran Inj) 4 mg IVP Q6 PRN PRN Reason: Nausea/Vomiting Oxycodone/Acetaminophen (Percocet 5/325 Mg Tab) 2 tab PO Q4H PRN PRN Reason: Pain, moderate (4-7) Stop: 05/02/17 02:49 Pneumococcal Polyvalent Vaccine (Pneumovax 23 Vaccine) 0.5 ml IM .ONCE ONE Stop: 04/30/17 14:01 - Labs Labs: 04/28/17 22:27 04/28/17 22:27 PT 11.9 SECONDS (9.7-12.2) 04/28/17 22:27 INR 1.0 04/28/17 22:27 APTT 29 SECONDS (21-34) 04/28/17 22:27 - Constitutional Appears: Well, No Acute Distress - Head Exam Head Exam: ATRAUMATIC, NORMAL INSPECTION - Eye Exam Eye Exam: EOMI, Normal appearance - ENT Exam ENT Exam: Mucous Membranes Moist - Neck Exam Neck Exam: Full ROM - Respiratory Exam Respiratory Exam: Clear to Ausculation Bilateral, NORMAL BREATHING PATTERN. absent: Rales, Rhonchi, Wheezes - Cardiovascular Exam Cardiovascular Exam: REGULAR RHYTHM, +S1, +S2 - GI/Abdominal Exam GI & Abdominal Exam: Soft, Normal Bowel Sounds. absent: Guarding, Rigid, Tenderness - Extremities Exam Extremities Exam: Calf Tenderness (L calf tenderness) Additional comments: No swelling Pedal pulses bilaterally - Back Exam Back Exam: vertebral tenderness (lumbar region) - Neurological Exam Neurological Exam: Alert, Awake, Oriented x3 - Psychiatric Exam Psychiatric exam: Normal Affect, Normal Mood - Skin Skin Exam: Dry, Normal Color, Warm Assessment and Plan - Assessment and Plan (Free Text) Assessment: 1. Metastatic Breast CA -Continue Decadron 4mg BID -CT shows metastatic disease to liver, lung and bone -Heme/Onc consulted, Dr Israel, help appreciated 2. Intractable Back pain -Back pain likely associated with metastatic lesions -Percocet 2 tabs (5/325mg) PO Q4H -PT evaluation ordered 3. Left Lower Extremity Tenderness -Will order Dopplers to r/o DVT Prophylaxis -Lovenox 40mg SC -Once DVT ruled out, can start SCDs
[2017-04-29] MEDS: Oxycodone/Acetaminophen 5/325 mg Tab PO PRN (21:59)
[2017-04-30 01:40] VITALS: RESP 20; TEMP 97.9
[2017-04-30 06:51] LABS: BASO % 0.1 % (0.0-2.0); EOS % 0.1 % (0.0-4.0); HEMATOCRIT 35.5 % (34.0-47.0); LYMPH # 0.8 K/uL (1.0-4.3); LYMPH % 29.8 % (20.0-40.0); MEAN CELL VOLUME 92.5 fL (81.0-99.0); MEAN CORPUSCULAR HEMOGLOBIN 31.3 pg (27.0-31.0); MEAN CORPUSCULAR HGB CONC 33.8 g/dL (33.0-37.0); MEAN PLATELET VOLUME 9.5 fL (7.2-11.7); MONO # 0.2 K/uL (0.0-0.8); MONO % 8.1 % (0.0-10.0); NRBC % 0.2 % (0.0-2.0); RED CELL DISTRIBUTION WIDTH 15.3 % (11.5-14.5); WHITE BLOOD COUNT 2.7 K/uL (4.8-10.8)
[2017-04-30 08:36] VITALS: BP 115/75; PULSE 87; O2SAT 98
[2017-04-30 08:55] LABS: BLOOD UREA NITROGEN 17 mg/dL (7-17); CALCIUM 9.2 mg/dl (8.6-10.4); CARBON DIOXIDE 24 mmol/L (22-30); CHLORIDE 103 mmol/L (98-107); GFR AFRICAN-AMERICAN > 60; GLUCOSE,RANDOM 120 mg/dL (65-105); POTASSIUM 4.2 mmol/L (3.6-5.2); SODIUM 136 mmol/L (132-148)
[2017-04-30] MEDS: Enoxaparin 40 mg Syringe SC SCH (09:17)
[2017-04-30] MEDS: Oxycodone/Acetaminophen 5/325 mg Tab PO PRN (09:53)
[2017-04-30] MEDS ORDERED: Influenza Vaccine 60 mcg/0.5 mL SYR (4YR UP) IM ONE (10:00)
[2017-04-30] MEDS ORDERED: Magnesium Hydroxide Susp 30 ml UD PO ONE (10:00)
--- NOTE | 2017-04-30 13:46 | CP.PCM.DIS ---
Provider - Provider Date of Admission: 04/29/17 02:26 Attending physician: Joe Campos MD Consults: Heme/Onc: Jhonatan Time Spent in preparation of Discharge (in minutes): 31 Diagnosis - Discharge Diagnosis (1) Back pain Status: Chronic Priority: Medium (2) Metastatic breast cancer Status: Chronic Priority: Medium (3) Metastatic cancer to liver Status: Acute (4) Prophylactic measure Status: Acute Hospital Course - Lab Results Lab Results: Most Recent Lab Values WBC 2.7 K/uL (4.8-10.8) L 04/30/17 06:31 RBC 3.84 Mil/uL (3.80-5.20) 04/30/17 06:31 Hgb 12.0 g/dL (11.0-16.0) 04/30/17 06:31 Hct 35.5 % (34.0-47.0) 04/30/17 06:31 MCV 92.5 fL (81.0-99.0) 04/30/17 06:31 MCH 31.3 pg (27.0-31.0) H 04/30/17 06:31 MCHC 33.8 g/dL (33.0-37.0) 04/30/17 06:31 RDW 15.3 % (11.5-14.5) H 04/30/17 06:31 Plt Count 273 K/uL (130-400) 04/30/17 06:31 MPV 9.5 fL (7.2-11.7) 04/30/17 06:31 Neut % (Auto) 61.9 % (50.0-75.0) 04/30/17 06:31 Lymph % (Auto) 29.8 % (20.0-40.0) 04/30/17 06:31 [place] % (Auto) 8.1 % (0.0-10.0) 04/30/17 06:31 Eos % (Auto) 0.1 % (0.0-4.0) 04/30/17 06:31 Baso % (Auto) 0.1 % (0.0-2.0) 04/30/17 06:31 Neut # 1.7 K/uL (1.8-7.0) L 04/30/17 06:31 Lymph # 0.8 K/uL (1.0-4.3) L 04/30/17 06:31 [place] # 0.2 K/uL (0.0-0.8) 04/30/17 06:31 Eos # 0.0 K/uL (0.0-0.7) 04/30/17 06:31 Baso # 0.0 K/uL (0.0-0.2) 04/30/17 06:31 PT 11.9 SECONDS (9.7-12.2) 04/28/17 22:27 INR 1.0 04/28/17 22:27 APTT 29 SECONDS (21-34) 04/28/17 22:27 D-Dimer, Quantitative 678 ng/mlDDU (0-243) H 04/28/17 22:27 Sodium 136 mmol/L (132-148) 04/30/17 08:42 Potassium 4.2 mmol/L (3.6-5.2) 04/30/17 08:42 Chloride 103 mmol/L (98-107) 04/30/17 08:42 Carbon Dioxide 24 mmol/L (22-30) 04/30/17 08:42 Anion Gap 13 (10-20) 04/30/17 08:42 BUN 17 mg/dL (7-17) 04/30/17 08:42 Creatinine 0.6 mg/dL (0.7-1.2) L 04/30/17 08:42 Est GFR ( Amer) > 60 04/30/17 08:42 Est GFR (Non-Af Amer) > 60 04/30/17 08:42 Random Glucose 120 mg/dL (65-105) H 04/30/17 08:42 Calcium 9.2 mg/dl (8.6-10.4) 04/30/17 08:42 Total Bilirubin 0.5 mg/dL (0.2-1.3) 04/28/17 22:27 AST 31 U/L (14-36) 04/28/17 22:27 ALT 24 U/L (9-52) 04/28/17 22:27 Alkaline Phosphatase 101 U/L (38-126) 04/28/17 22:27 Troponin I 0.0260 ng/mL (0.00-0.120) 04/28/17 22: Total Protein 7.2 g/dL (6.3-8.3) 04/28/17 22: Albumin 3.9 g/dL (3.5-5.0) 04/28/17 22: Globulin 3.3 gm/dL (2.2-3.9) 04/28/17 22: Albumin/Globulin Ratio 1.2 (1.0-2.1) 04/28/17 22:27 Urine Color Colorless (YELLOW) 04/29/17: Urine Clarity Clear (Clear) 04/29/17 00: Urine pH 7.0 (5.0-8.0) 04/29/17 00:22 Ur Specific [place] 1.017 (1.003-1.030) 04/29/17: Urine Protein Negative mg/dL (NEGATIVE) 04/29/17: Urine Glucose (UA) Normal mg/dL (Normal) 04/29/17: Urine Ketones Negative mg/dL (NEGATIVE) 04/29/17: Urine Blood Negative (NEGATIVE) 04/29/17: Urine Nitrate Negative (NEGATIVE) 04/29/17: Urine Bilirubin Negative (NEGATIVE) 04/29/17: Urine Urobilinogen Normal mg/dL (0.2-1.0) 04/29/17: Ur Leukocyte Esterase Neg [place]/uL (Negative) 04/29/17: Urine WBC (Auto) < 1 /hpf (0-5) 04/29/17 00: Urine RBC (Auto) < 1 /hpf (0-3) 04/29/17: Ur Squamous Epith Cells < 1 /hpf (0-5) 04/29/17 00:22 - Hospital Course Hospital Course: Patient is a 62F with a PMH of metastatic breast cancer on chemotherapy who presented for worsening lower back pain. Patient states that he back pain started 3 months ago and has gotten worse within the last week. States that she is now having difficulty walking due to the pain. Patient states that she takes percocet for the back pain at home. Patient had elevated d-dimer at 678. CTA of chest/abdomen/pelvis on admission showed metastasis to the liver, lumbar and thoracic spine, ribs and lungs (please see full report). Besides that she tolerated her chemo well. She is well aware of her disease. She had breast cancer 7 years ago with a Lymph Node dissection at that time. Patient last session of chemotherapy was one week ago. Patient was admitted for intractable back pain. Heme/Onc was consulted, Dr Israel. Patient was started on Decadron 4mg BID and was given Percocet as needed. During this hospital stay, patient had left calf tenderness on exam. Lower Extremity Dopplers were performed and negative for DVT. Patient also had a potassium of 3.2 that was repleted appropriately. Physical therapy also evaluated the patient and recommended outpatient PT however patient does not have insurance at this time. On day of discharge, patient was doing well. Pain was controlled. Ambulating and tolerating diet. Patient medically stable and clear for discharge home. Patient informed that she is to follow up with Dr Israel on 05/06/17. Prescriptions for Decadron 4mg BID, Percocet 5/325mg Q4H prn pain and Colace 100mg BID left in the chart. Patient to establish care with [facility] at [facility]. All questions and concerns were addressed. Discharge Exam - Head Exam Head Exam: ATRAUMATIC, NORMAL INSPECTION - Eye Exam Eye Exam: EOMI, Normal appearance - ENT Exam ENT Exam: Mucous Membranes Moist - Neck Exam Neck exam: Full Rom - Respiratory Exam Respiratory Exam: Clear to PA & Lateral, NORMAL BREATHING PATTERN, UNREMARKABLE. absent: Decreased Breath Sounds, Rales, Rhonchi, Wheezes - Cardiovascular Exam Cardiovascular Exam: REGULAR RHYTHM, +S1, +S2 - GI/Abdominal Exam GI & Abdominal Exam: Normal Bowel Sounds, Soft, Tenderness (Mild right sided tenderness). absent: Guarding, Rebound, Rigid - Extremities Exam Extremities exam: full ROM, normal inspection, pedal pulses present - Back Exam Back exam: vertebral tenderness - Neurological Exam Neurological exam: Alert, CN II-XII Intact, Oriented x3 - Psychiatric Exam Psychiatric exam: Normal Affect, Normal Mood - Skin Skin Exam: Dry, Normal Color, Warm Discharge Plan - Discharge Medications Prescriptions: Dexamethasone [Decadron] 4 mg PO BID #28 tab Docusate [Colace] 100 mg PO BID #20 cap oxyCODONE/Acetaminophen [Percocet 5/325 mg Tab] 1 tab PO Q4H PRN #20 tab PRN Reason: Pain, Moderate (4-7) - Follow Up Plan Condition: GOOD Disposition: HOME/ ROUTINE Instructions: Oxycodone/Acetaminophen (By mouth), Laxative, Stool Softeners ( By mouth), Dexamethasone (By mouth), Back Pain (GEN) Additional Instructions: please take your medications as instructed by your doctor. follow up with 's office this coming ,05/06/2017. please call the [phone], for follow up of care. Referrals: [facility] at [facility] [Outside] Dimitris Israel MD [Staff Provider] -
[2017-04-30] MEDS ORDERED: Pneumococcal 23-Valent Vaccine IM ONE (14:00)
--- NOTE | 2017-04-30 18:43 | CARD ---
APPROVED REPORT EKG Measurement Heart [id number] <Conclusion> Normal sinus rhythm T wave abnormality, consider lateral ischemia Abnormal ECG
== END 2017-04-30 16:21 | disposition home or self-care (01) ==
LOC: C.ER 19:55 → C.9E 04-29 02:26 → C.6T 04-29 04:27
PROVIDERS: ADMIT Family Medicine; ATTEND Family Medicine
DX: C79.51 Secondary malignant neoplasm of bone (principal); C50.919 Malignant neoplasm of unspecified site of unspecified female breast; C77.3 Secondary and unspecified malignant neoplasm of axilla and upper limb lymph nodes; C78.7 Secondary malignant neoplasm of liver and intrahepatic bile duct; C78.00 Secondary malignant neoplasm of unspecified lung
CPT/HCPCS: 36415; 71270; 74175; 80048; 80053; 81001; 84484; 85025; 85378; 85610; 85730; 93005; 93970; 96360; 97116; 97162; 99285; G0378; G8978; G8979; J1650; J7040; J8540; Q9967

== ENCOUNTER 2017-05-03 12:03 | Inpatient (IN) | payer OTHER ==
[2017-05-03 12:03] VITALS: BMI 27.8
[2017-05-03] MEDS ORDERED: Albuterol-Ipratrop 3 mg / 0.5 (3 ml) UD IH STA (12:58)
[2017-05-03] MEDS ORDERED: Sodium Chloride 0.9% 1,000 ML IV ONE ×2 (12:58)
--- NOTE | 2017-05-03 12:58 | C.PDOC ---
History Of Present Illness 62-YEAR-OLD FEMALE, PRESENTS TO THE EMERGENCY DEPARTMENT WITH COMPLAINTS OF A COUGH X 3 DAYS. SUBJ FEVER. +CHEST KEYSHAWN, TIGHTNESS. HO MET BREAST CA. RECENT NEG CTA, DUPLEX. EXAM MILD DIST NONTOXIC HEENT NEG LUNGS +PARLOR CHAPERONE COUGH CTA B/L NO W/R/R CV RRR SINUS TACH REMAINDER NEG Time Seen by Provider: 05/03/17 12:37 Chief Complaint (Nursing): Flu-like Symptoms History Per: Patient History/Exam Limitations: no limitations Onset/Duration Of Symptoms: Days Current Symptoms Are (Timing): Still Present Past Medical History Reviewed: Historical Data, Nursing Documentation, Vital Signs Vital Signs: Last Vital Signs Temp 99.0 F 05/03/17 14:15 Pulse 97 H 05/03/17 13:50 Resp 22 05/03/17 12:14 BP 94/57 L 05/03/17 12:14 Pulse Ox 96 05/03/17 14:57 - Medical History PMH: Arthritis, HTN Denies: End Stage Renal Disease, Chronic Kidney Disease Surgical History: Appendectomy - [facility] Procedures DRAINAGE OF LEFT PLEURAL CAVITY, PERCUTANEOUS APPROACH (10/22/16) EXCISION OF RIGHT LOBE LIVER, PERCUTANEOUS APPROACH, DIAGN (06/15/16) Family History: States: No Known Family Hx - Social History Hx Alcohol Use: No Hx Substance Use: No - Immunization History Hx Tetanus Toxoid Vaccination: No Hx Influenza Vaccination: No Hx Pneumococcal Vaccination: No Review Of Systems Constitutional: Positive for: Fever ENT: Positive for: Nose Congestion Respiratory: Positive for: Cough Gastrointestinal: Negative for: Vomiting, Abdominal Pain Musculoskeletal: Negative for: Back Pain Neurological: Negative for: Weakness, Numbness, Headache, Dizziness Physical Exam - Physical Exam Appears: Non-toxic, No Acute Distress Skin: Warm, Dry, No Rash Head: Atraumatic, Normacephalic Eye(s): bilateral: Normal Inspection, PERRL Nose: Normal Oral Mucosa: Moist Lips: Normal Appearing Neck: Normal ROM Chest: Symmetrical Cardiovascular: Rhythm Regular, No Murmur Respiratory: Normal Breath Sounds, No Accessory Muscle Use, No Rales, No Rhonchi , No Wheezing, Other (+PARLOR CHAPERONE COUGH) Extremity: Normal ROM Neurological/Psych: Oriented x3, Normal Speech ED Course And Treatment - Laboratory Results Result Diagrams: 05/03/17 13:26 05/03/17 13:26 ECG: Interpreted By Me, Viewed By Me ECG Rhythm: Sinus Rhythm ECG Interpretation: No Acute Changes Rate From EC O2 Sat by Pulse Oximetry: 96 Progress - Re-Evaluation Re-evaluation Note: 05/03/17 14:55 CO PERSIST COUGH. VSS PT REQUESTING ADMISSION D/W DR Татьяна CRAIG [facility], WILL ADMIT. REQUESTING INFLUENZA TEST - Data Reviewed Data Reviewed: Lab, Diagnostic imaging, EKG, Old records Disposition Counseled Patient/Family Regarding: Studies Performed, Diagnosis - Disposition Disposition: HOSPITALIZED Disposition Time: 14:56 Condition: STABLE Forms: [employer] (Mexican) - POA Present On Arrival: None - Clinical Impression Clinical Impression: Pneumonia, Metastatic breast cancer - Scribe Statement The provider has reviewed the documentation as recorded by the Scribe (Edwin Tsang) All medical record entries made by the Scribe were at my direction and personally dictated by me. I have reviewed the chart and agree that the record accurately reflects my personal performance of the history, physical exam, medical decision making, and the department course for this patient. I have also personally directed, reviewed, and agree with the discharge instructions and disposition. Decision To Admit - Pt Status Changed To: Hospital Disposition Of: Observation - . Bed Request Type: Regular Admitting Physician: Eduardo Craig Patient Diagnosis: Pneumonia, Metastatic breast cancer
[2017-05-03] MEDS ORDERED: Albuterol-Ipratrop 3 mg / 0.5 (3 ml) UD ONE (13:12)
--- NOTE | 2017-05-03 13:21 | RAD ---
HISTORY: COMPARISON: 12/22/2016. TECHNIQUE: Chest PA and lateral FINDINGS: LINES AND TUBES: None. LUNG AND PLEURA: The lungs are hyperinflated and there is peribronchial thickening with chronic changes in both lungs. No focal consolidation. There are nodular opacities in the left mid lung. HEART AND MEDIASTINUM: The heart is not enlarged. The hilar and mediastinal contours are within normal limits. SKELETAL STRUCTURES: The bony structures are within normal limits for the patient's age. VISUALIZED UPPER ABDOMEN: Normal. OTHER FINDINGS: None. IMPRESSION: Findings are most compatible with COPD/atypical/viral pneumonitis. Nodular opacities in the left mid lung could be postinfectious/inflammatory in etiology however follow-up CT scan after medical management is recommended to ensure complete resolution.
[2017-05-03 13:35] LABS: BASO % 0.4 % (0.0-2.0); EOS % 0.1 % (0.0-4.0); HEMATOCRIT 35.2 % (34.0-47.0); LYMPH # 0.4 K/uL (1.0-4.3); LYMPH % 10.6 % (20.0-40.0); MEAN CELL VOLUME 90.8 fL (81.0-99.0); MEAN CORPUSCULAR HEMOGLOBIN 30.6 pg (27.0-31.0); MEAN CORPUSCULAR HGB CONC 33.7 g/dL (33.0-37.0); MEAN PLATELET VOLUME 8.9 fL (7.2-11.7); MONO # 0.4 K/uL (0.0-0.8); MONO % 9.1 % (0.0-10.0); NRBC % 0.1 % (0.0-2.0)
[2017-05-03 13:36] LABS: WHITE BLOOD COUNT 4.1 K/uL (4.8-10.8)
[2017-05-03] MEDS ORDERED: Moxifloxacin IV 400mg/250ml NS 400 MG/250 ML BAG IV ONE (14:00)
[2017-05-03 14:03] LABS: ALB/GLOB RATIO 1.1 (1.0-2.1); ALKALINE PHOSPHATASE 102 U/L (38-126); ALT/SGPT 41 U/L (9-52); AST/SGOT 42 U/L (14-36); BILIRUBIN,TOTAL 0.4 mg/dL (0.2-1.3); BLOOD UREA NITROGEN 16 mg/dL (7-17); CALCIUM 8.2 mg/dl (8.6-10.4); CARBON DIOXIDE 27 mmol/L (22-30); CHLORIDE 96 mmol/L (98-107); GFR AFRICAN-AMERICAN > 60; GLUCOSE,RANDOM 95 mg/dL (65-105); POTASSIUM 3.4 mmol/L (3.6-5.2); SODIUM 131 mmol/L (132-148); TOTAL PROTEIN 7.4 g/dL (6.3-8.3)
[2017-05-03] MEDS ORDERED: Moxifloxacin IV 400mg/250ml NS 400 MG/250 ML BAG IVPB ONE (14:08)
[2017-05-03 14:37] LABS: RBC URINE < 1 /hpf (0-3); URINE BACTERIA RARE (<OCC); URINE BILIRUBIN NEGATIVE (NEGATIVE); URINE BLOOD NEGATIVE (NEGATIVE); URINE COLOR Yellow (YELLOW); URINE GLUCOSE (UA) NORMAL (Normal); URINE KETONE NEGATIVE (NEGATIVE); URINE LEUKOCYTE ESTERASE NEG Leu/uL (Negative); URINE PROTEIN NEGATIVE (NEGATIVE); URINE UROBILINOGEN NORMAL mg/dL (0.2-1.0); WBC URINE 2 /hpf (0-5)
--- NOTE | 2017-05-03 15:57 | CP.PCM.HP ---
<Karl Posey - Last Filed: 05/03/17 15:47> History of Present Illness - History of Present Illness History of Present Illness: PGY1 History and Physical for Dr. Figueroa Patient seen and examined at bedside in the emergency room. Patient has a past medical history of breast cancer with mets to the liver, lumbar/thoracic spine and lungs. Patient was recently discharged from the hospital 3 days ago when she was here for evaluation of back pain. She has been taking percocet for the pain. Patient is well aware of her disease and planning on starting chemo with Dr. Israel on 05/06/17. Patient states that after she was discharged, she started to have a productive cough two days ago, with yellow phlegm. Nothing makes the cough better or worse. She states that last night she started to become diaphoretic and experienced chills. She was able to fall asleep but when she woke up she noticed she was a little bit nauseous. The nausea got progressively worse and she vomited bile this morning. Patient states that she experiences some pleuric chest pain substernally but only experiences when she coughs. Patient has not had a bowel movement since Wednesday (3 days ago), which is not normal for her (usually once per day). Patient denies any diarrhea, shortness of breath, numbness, tingling, vision changes and rhinorrhea. Onc: Dr. Israel PMH: breast cancer with mets to the liver, lumbar/thoracic spine and lungs PSH: LN Dissection 7 years ago FH: bother brother and cousin have had cancer, all passed. Mother and father healthy SH: Never smoked, does not drink, no drugs Meds: Percocet All: cefepime, honey, octopus, docetaxel Present on Admission - Present on Admission Any Indicators Present on Admission: No Review of Systems - Review of Systems All systems: reviewed and no additional remarkable complaints except (as per HPI ) Past Patient History - Infectious Disease Hx of Infectious Diseases: None - Past Medical History & Family History Past Medical History?: Yes - Past Social History Smoking Status: Never Smoked - CARDIAC Hx Hypertension: Yes - PULMONARY Hx Respiratory Disorders: No - NEUROLOGICAL Hx Neurological Disorder: No - HEENT Hx HEENT Problems: No - RENAL Hx Chronic Kidney Disease: No - ENDOCRINE/METABOLIC Hx Endocrine Disorders: No - HEMATOLOGICAL/ONCOLOGICAL Hx Blood Disorders: Yes Hx Cancer: Yes (Breast with mets to liver, Rt rib, spine) - INTEGUMENTARY Hx Dermatological Problems: No - MUSCULOSKELETAL/RHEUMATOLOGICAL Hx Arthritis: Yes - GASTROINTESTINAL Hx Gastrointestinal Disorders: Yes Hx Gastroesophageal Reflux: Yes - GENITOURINARY/GYNECOLOGICAL Hx Genitourinary Disorders: No - PSYCHIATRIC Hx Substance Use: No - SURGICAL HISTORY Hx Appendectomy: Yes - ANESTHESIA Hx Anesthesia: Yes Hx Anesthesia Reactions: No Hx Malignant Hyperthermia: No Meds Allergies/Adverse Reactions: Allergies Allergy/AdvReac Type Severity Reaction Status Date / Time cefepime [From Maxipime] Allergy REDNESS Verified 05/03/17 12:18 honey Allergy Verified 05/03/17 12:18 octopus Allergy ANAPHYLAXIS Verified 05/03/17 12:18 docetaxel AdvReac SEVERE LOW Verified 05/03/17 12:18 BACK PAIN; RESPIRATORY DISTRESS Physical Exam - Constitutional Appears: No Acute Distress - Head Exam Head Exam: ATRAUMATIC, NORMOCEPHALIC - Eye Exam Eye Exam: EOMI, Normal appearance - ENT Exam ENT Exam: Mucous Membranes Moist - Respiratory Exam Respiratory Exam: Clear to Auscultation Bilateral, NORMAL BREATHING PATTERN. absent: Accessory Muscle Use, Rales, Rhonchi, Wheezes, Respiratory Distress Additional comments: Patient actively coughing (non productive during exam) - Cardiovascular Exam Cardiovascular Exam: REGULAR RHYTHM, +S1. absent: JVD - GI/Abdominal Exam GI & Abdominal Exam: Soft. absent: Distended, Firm, Guarding, Hernia, Rigid, Tenderness - Extremities Exam Extremities exam: Positive for: pedal pulses present. Negative for: calf tenderness, pedal edema, tenderness - Neurological Exam Neurological exam: Alert, CN II-XII Intact, Oriented x3 - Psychiatric Exam Psychiatric exam: Normal Affect, Normal Mood - Skin Skin Exam: Dry, Warm Results - Vital Signs Recent Vital Signs: Last Vital Signs Temp 98.8 F 05/03/17 15:34 Pulse 92 H 05/03/17 15:34 Resp 18 05/03/17 15:34 BP 94/56 L 05/03/17 15:34 Pulse Ox 94 L 05/03/17 15:34 - Labs Result Diagrams: 05/03/17 13:26 05/03/17 13:26 Labs: Laboratory Results - last 24 hr 05/03/17 05/03/17 05/03/17 13:26 13:26 14:12 WBC 4.1 L D RBC 3.88 Hgb 11.9 Hct 35.2 MCV 90.8 MCH 30.6 MCHC 33.7 RDW 16.0 H Plt Count 294 MPV 8.9 Neut % (Auto) 79.8 H Lymph % (Auto) 10.6 L Dixie % (Auto) 9.1 Eos % (Auto) 0.1 Baso % (Auto) 0.4 Neut # 3.2 Lymph # 0.4 L Dixie # 0.4 Eos # 0.0 Baso # 0.0 Sodium 131 L Potassium 3.4 L Chloride 96 L Carbon Dioxide 27 Anion Gap 12 BUN 16 Creatinine 0.9 Est GFR ( Amer) > 60 Est GFR (Non-Af Amer) > 60 Random Glucose 95 Calcium 8.2 L Total Bilirubin 0.4 AST 42 H D ALT 41 Alkaline Phosphatase 102 Total Protein 7.4 Albumin 3.8 Globulin 3.6 Albumin/Globulin Ratio 1.1 Urine Color Yellow Urine Clarity Clear Urine pH 7.0 Ur Specific Apex 1.010 Urine Protein Negative Urine Glucose (UA) Normal Urine Ketones Negative Urine Blood Negative Urine Nitrate Negative Urine Bilirubin Negative Urine Urobilinogen Normal Ur Leukocyte Esterase Neg Urine WBC (Auto) 2 Urine RBC (Auto) < 1 Ur Squamous Epith Cells < 1 Urine Bacteria Rare Hyaline Casts 3-5 H Assessment & Plan - Assessment and Plan (Free Text) Plan: Productive Cough CXR 05/03/17 - Findings are most compatible with COPD/atypical/viral pneumonitis. Nodular opacities in the left mid lung could be postinfectious/ inflammatory in etiology however follow-up CT scan after medical management is recommended to ensure complete resolution. NS 2 L bolus in ED Avelox 400mg IVPB given once in ED D5/NS @ 50mL/hr Percocet 2 tabs PO q4h PRN Mucinex 600mg PO BID Tessalon Perles 100mg PO TID Duoneb 3mL INH q6h PRN f/u blood/urine cultures f/u myco/legionella/flu f/u ESR/CRP/procal. Nausea and Vomiting Zofran 4mg PO q6h PRN Clear Liquid Diet - advance as tolerated Metastatic Breast CA CT Chest/Abd/Pelvis 04/28/17 - 1. There has been slight interval enlargement of a lesion in the left breast on series 3, image 62 which is marked with a surgical clip, previously measuring 18 mm in greatest dimension and currently 20 mm. There are a few smaller nodular densities in both breasts as well. Please correlate clinically and if indicated followup can be obtained. 2. No hilar adenopathy. There are some borderline mediastinal subcarinal nodes without jana adenopathy. 3. Small hiatal hernia. Questionable mild wall thickening involving portions of the esophagus versus underdistention. Please correlate clinically. 4. No evidence for large acute pulmonary embolism. Some of the smaller branches are suboptimally evaluated due to motion artifact. 5. There are several small subpleural and pleural nodular opacities in the left upper lobe. For reference, one of these measures 8 mm in greatest dimension on series 3, image 20. A second lesion measures 11 mm anteriorly on series 3, image 22. A third lesion measures 11 mm on series 3, image 38. There are additional similar and smaller lesions in the vicinity as well. There are a few smaller lesions in the right upper lobe and right middle lobe as well. These lesions are suspicious for metastases. 6. There is an expansile destructive lesion involving the right fourth rib laterally. This measures 2.6 CM in greatest dimension on series 3, image 28. 7. Again seen are numerous hypodense lesions in the liver compatible with metastases. However, these appear less prominent and less numerous on the current study than on the prior study dated 10/22/2016. Please correlate clinically. 8. There is a vague expansile lesion of the right eighth ribs postero- laterally. This however appears less prominent currently than on the prior study dated 10/22/2016. 9. Scattered lytic and blastic lesions are again seen in the thoracic and lumbar spine although these appear overall slightly less prominent currently than on 10/22/2016. Percocet 2tabs 5/325 q4h PRN Prophylactic Measure Lovenox 40mg SC daily Case discussed with Dr. Carolina Escalonan PGY1 <Sheila Figueroa V - Last Filed: 05/03/17 22:39> Results - Vital Signs Recent Vital Signs: Last Vital Signs Temp 99.5 F 05/03/17 18:18 Pulse 93 H 05/03/17 18:18 Resp 18 05/03/17 18:18 BP 114/70 05/03/17 18:18 Pulse Ox 96 05/03/17 18:18 - Labs Result Diagrams: 05/03/17 13:26 05/03/17 13:26 Labs: Laboratory Results - last 24 hr 05/03/17 05/03/17 05/03/17 13:26 13:26 14:12 WBC 4.1 L D RBC 3.88 Hgb 11.9 Hct 35.2 MCV 90.8 MCH 30.6 MCHC 33.7 RDW 16.0 H Plt Count 294 MPV 8.9 Neut % (Auto) 79.8 H Lymph % (Auto) 10.6 L Dixie % (Auto) 9.1 Eos % (Auto) 0.1 Baso % (Auto) 0.4 Neut # 3.2 Lymph # 0.4 L Dixie # 0.4 Eos # 0.0 Baso # 0.0 ESR Sodium 131 L Potassium 3.4 L Chloride 96 L Carbon Dioxide 27 Anion Gap 12 BUN 16 Creatinine 0.9 Est GFR ( Amer) > 60 Est GFR (Non-Af Amer) > 60 Random Glucose 95 Calcium 8.2 L Total Bilirubin 0.4 AST 42 H D ALT 41 Alkaline Phosphatase 102 Total Protein 7.4 Albumin 3.8 Globulin 3.6 Albumin/Globulin Ratio 1.1 Procalcitonin Urine Color Yellow Urine Clarity Clear Urine pH 7.0 Ur Specific Apex 1.010 Urine Protein Negative Urine Glucose (UA) Normal Urine Ketones Negative Urine Blood Negative Urine Nitrate Negative Urine Bilirubin Negative Urine Urobilinogen Normal Ur Leukocyte Esterase Neg Urine WBC (Auto) 2 Urine RBC (Auto) < 1 Ur Squamous Epith Cells < 1 Urine Bacteria Rare Hyaline Casts 3-5 H Influenza Typ A,B (EIA) Mycoplasma pneumon IgM 05/03/17 05/03/17 05/03/17 15:31 16:36 16:50 WBC RBC Hgb Hct MCV MCH MCHC RDW Plt Count MPV Neut % (Auto) Lymph % (Auto) Dixie % (Auto) Eos % (Auto) Baso % (Auto) Neut # Lymph # Dixie # Eos # Baso # ESR 26 H Sodium Potassium Chloride Carbon Dioxide Anion Gap BUN Creatinine Est GFR ( Amer) Est GFR (Non-Af Amer) Random Glucose Calcium Total Bilirubin AST ALT Alkaline Phosphatase Total Protein Albumin Globulin Albumin/Globulin Ratio Procalcitonin Urine Color Urine Clarity Urine pH Ur Specific Apex Urine Protein Urine Glucose (UA) Urine Ketones Urine Blood Urine Nitrate Urine Bilirubin Urine Urobilinogen Ur Leukocyte Esterase Urine WBC (Auto) Urine RBC (Auto) Ur Squamous Epith Cells Urine Bacteria Hyaline Casts Influenza Typ A,B (EIA) Pos for influenza a H Mycoplasma pneumon IgM Negative 05/03/17 16:50 WBC RBC Hgb Hct MCV MCH MCHC RDW Plt Count MPV Neut % (Auto) Lymph % (Auto) Dixie % (Auto) Eos % (Auto) Baso % (Auto) Neut # Lymph # Dixie # Eos # Baso # ESR Sodium Potassium Chloride Carbon Dioxide Anion Gap BUN Creatinine Est GFR ( Amer) Est GFR (Non-Af Amer) Random Glucose Calcium Total Bilirubin AST ALT Alkaline Phosphatase Total Protein Albumin Globulin Albumin/Globulin Ratio Procalcitonin 0.11 L Urine Color Urine Clarity Urine pH Ur Specific Apex Urine Protein Urine Glucose (UA) Urine Ketones Urine Blood Urine Nitrate Urine Bilirubin Urine Urobilinogen Ur Leukocyte Esterase Urine WBC (Auto) Urine RBC (Auto) Ur Squamous Epith Cells Urine Bacteria Hyaline Casts Influenza Typ A,B (EIA) Mycoplasma pneumon IgM Attending/Attestation - Attestation I have personally seen and examined this patient.: Yes I have fully participated in the care of the patient.: Yes I have reviewed all pertinent clinical information: Yes Notes (Text): Patient seen, examined, and case discussed with daytime resident. I'm familiar with patient from her observation visit from last week when she had intractable back pain causing gait impairment. Patient was discharged with by mouth Percocet and was seen by physical therapy prior to discharge and was medically optimized. Patient had refused pneumonia vaccination and refused influenza vaccination. Patient reports shortly after she had a productive cough for about 2 days and has been with close family given the holidays. Patient was discharged on Decadron for her oncologist recommended follow-up in the office on pain prescription refill. Patient was scheduled for chemotherapy tomorrow however in light of her symptoms will ask resident to call oncologist to form of patient's current condition. Upon initial discussion with patient in regards to her condition the rapid flu swab was being collected. Shortly after patient serologies supportive influenza part a. Patient placed on droplet precaution and on Tamiflu. With patient and informed her that she is positive for the flu and patient reports her symptoms in terms of her lack of energy started within 24 hours. I discussed with patient advise her to inform her family given that they are also within the timeframe to start Tamiflu to shorten the duration of symptoms from the flu. Have also advised patient to consider influenza vaccination yearly especially in light of her cancer history and on active chemotherapy. Patient placed on supportive therapy including mucolytic, cough suppressant, and nebulizer as needed. Patient does report appetite request a sandwich at bedside. Patient reports she has not had a bowel movement for 3 days but also coinciding with lack of appetite. Patient does not appear vibrant she was and she did 3 days ago. Patient given Avelox in the ED. Patient ordered for vancomycin 1 g stat dose. Case discussed with ID who recommended to continue Avelox and vancomycin given that she is high risk in light of flu symptoms and confirm flu. Blood cultures were collected in the ED. Mycoplasma IgM is negative. Pending urine strep pneumonia. Pending urine Legionella. Patient has had a previous echo in January with EF intact. Will increase IV fluids to 75 mL per hour. Will resume patient's Decadron that was started last admission that was prescribed by systems design engineer last admission to avoid any adrenal insufficiency. We 'll provide stool softeners. Assessment and plan 1. Positive for influenza part a Patient space on droplet precautions. Patient is placed on Tamiflu 75 mg by mouth twice a day except for 5 days. Educated patient about yearly flu vaccinations. Patient reports she does not get the flu shot and normally does not want one. I explained to patient that she is considered high risk given her cancer history and in light of her active chemotherapy. Also note patient did refuse pneumonia vaccination offered to her last visit as well. Patient was given Avelox in the ED and is ordered for a dose of vancomycin 1 g stat. Chest x -ray does not show pneumonia. Will repeat chest x-ray tomorrow in light of hydration. 2. Bronchitis; cough Patient is on supportive therapy including mucolytic cough suppressant and nebulizer for shortness of breath as needed. Patient is given Avelox and vancomycin to cover for pneumonia in light of recent hospitalization and recent flu positive serology. 3. Metastatic breast cancer Patient did complete CT angiogram in last hospitalization. Spread to liver thoracic and lumbar spine, ribs lytic lesions and lung. Patient was scheduled for active chemotherapy tomorrow. In light of patient's flu unlikely she will have chemotherapy tomorrow I fast resident to place a call to Dr. Israle to inform him of patient's condition. For now I will resume Decadron that was originally prescribed by him on to avoid any adrenal insufficiency this was recently started as of . 4. Constipation Will resume stool softeners and monitor for bowel movement. 5. Prophylactic care Droplet isolation Education provided about influenza vaccination given the patient is a high risk individual DVT prophylaxis Prophylaxis GI
[2017-05-03] MEDS ORDERED: Albuterol-Ipratrop 3 mg / 0.5 (3 ml) UD INH PRN (16:09)
[2017-05-03] MEDS ORDERED: Oxycodone/Acetaminophen 5/325 mg Tab PO PRN (16:09)
[2017-05-03] MEDS: guaiFENesin 600 mg ER Tab PO SCH (18:55)
[2017-05-03] MEDS ORDERED: Dextrose 5%/0.9% NS 1,000 ML IV SCH (19:15)
[2017-05-03] MEDS ORDERED: Vancomycin 1 GM 1 GM/250 ML BAG IVPB STA (22:19)
[2017-05-03] MEDS: Sodium Chloride 0.9% 1,000 ML IV SCH (22:52)
[2017-05-03] MEDS ORDERED: Vancomycin 1 gm/NS 200 ml 1 GM/200 ML BAG IVPB ONE (23:00)
[2017-05-03] MEDS ORDERED: Vancomycin 1 GM in Sodium Chloride 0.9% 200 ML IVPB ONE (23:00)
[2017-05-04 00:05] VITALS: RESP 20
[2017-05-04 06:22] LABS: BASO % 0.5 % (0.0-2.0); EOS % 0.3 % (0.0-4.0); HEMATOCRIT 33.1 % (34.0-47.0); LYMPH # 0.7 K/uL (1.0-4.3); LYMPH % 22.2 % (20.0-40.0); MEAN CORPUSCULAR HEMOGLOBIN 30.8 pg (27.0-31.0); MEAN CORPUSCULAR HGB CONC 33.8 g/dL (33.0-37.0); MEAN PLATELET VOLUME 9.2 fL (7.2-11.7); MONO # 0.4 K/uL (0.0-0.8); MONO % 13.9 % (0.0-10.0); RED CELL DISTRIBUTION WIDTH 15.9 % (11.5-14.5)
[2017-05-04] MEDS ORDERED: Vancomycin 1 gm/NS 200 ml 1 GM/200 ML BAG IVPB SCH (08:00)
[2017-05-04 08:26] LABS: ALB/GLOB RATIO 1.1 (1.0-2.1); ALKALINE PHOSPHATASE 92 U/L (38-126); ALT/SGPT 38 U/L (9-52); AST/SGOT 40 U/L (14-36); BILIRUBIN,TOTAL 0.3 mg/dL (0.2-1.3); BLOOD UREA NITROGEN 11 mg/dL (7-17); CALCIUM 7.6 mg/dl (8.6-10.4); CARBON DIOXIDE 23 mmol/L (22-30); CHLORIDE 102 mmol/L (98-107); GFR AFRICAN-AMERICAN > 60; GLUCOSE,RANDOM 92 mg/dL (65-105); MAGNESIUM 1.5 mg/dL (1.6-2.3); PHOSPHOROUS 4.3 mg/dL (2.5-4.5); POTASSIUM 3.4 mmol/L (3.6-5.2); SODIUM 132 mmol/L (132-148); TOTAL PROTEIN 6.5 g/dL (6.3-8.3)
--- NOTE | 2017-05-04 08:33 | RAD ---
HISTORY: cough COMPARISON: 05/03/2017 chest x-ray PA and lateral and view chest CT 04/28/2017 FINDINGS: LUNGS: Lung volumes less than before. No dense consolidation. Prior referenced left mid lung nodular opacity are less conspicuous Overall bronchovascular markings/interstitial markingss minimally increased -similar-appearing Oval consolidation. PLEURA: No significant pleural effusion identified, no pneumothorax apparent. Right lateral mid lung zone pleural action contiguous with a expansile lytic right 4th rib apparent metastatic lesion is similar. Minimal left inferolateral pleural thickening -similar CARDIOVASCULAR: Top-normal heart size OSSEOUS STRUCTURES: Right 4th rib lytic lesion -similar VISUALIZED UPPER ABDOMEN: Normal. OTHER FINDINGS: Left axillary os chest for postsurgical clips IMPRESSION: No interval change perceived -bronchovascular initial for markings minimally yet similar . No interval consolidation
[2017-05-04] MEDS ORDERED: Potassium Chloride 20 mEq ER Tab PO ONE (08:45)
[2017-05-04] MEDS ORDERED: Magnesium Sulfate 1 gm in D5W 1 GM/100 ML BAG IVPB ONE (09:00)
[2017-05-04] MEDS ORDERED: Moxifloxacin IV 400mg/250ml NS 400 MG/250 ML BAG IVPB SCH (10:00)
[2017-05-04] MEDS: Enoxaparin 40 mg Syringe SC SCH (10:43)
[2017-05-04] MEDS: guaiFENesin 600 mg ER Tab PO SCH ×2 (10:43→17:20)
[2017-05-04] MEDS ORDERED: Vancomycin 1 GM in Sodium Chloride 0.9% 200 ML IVPB SCH (11:00)
[2017-05-04] MEDS ORDERED: Simethicone 80 mg Chewtab PO SCH (13:00)
[2017-05-04] MEDS: Sodium Chloride 0.9% 1,000 ML IV SCH ×4 (13:13→18:45)
--- NOTE | 2017-05-04 13:59 | CP.PCM.PN ---
<Karl Posey - Last Filed: 05/04/17 13:29> Subjective - Date & Time of Evaluation Date of Evaluation: 05/04/17 Time of Evaluation: 10:29 - Subjective Subjective: PGY1 Medicine Note for Dr. Gill Patient seen and examined at bedside this morning. Patient is actively burping throughout the entire exam. She states she has been burping since night. She has experienced burping episodes like this multiple times she had her chemo many years ago. Other than the burping, she reports her cough is still present but has improved. The amount phlegm that she is bringing up with the cough is decreasing and has turned to more of a white color. Patient denies fevers or chills. Her pain is well controlled. Patient has no other complaints at this time. Objective - Vital Signs/Intake and Output Vital Signs (last 24 hours): Temp Pulse Resp BP Pulse Ox 99.7 F H 91 H 20 147/88 94 L 05/04/17 07:45 05/04/17 11:12 05/04/17 07:45 05/04/17 07:45 05/04/17 11:12 Intake and Output: 05/04/17 05/04/17 06:59 18:59 Intake Total 800 720 Balance 800 720 - Medications Medications: Current Medications Albuterol/Ipratropium (Duoneb 3 Mg/0.5 Mg (3 Ml) Ud) 3 ml INH RQ6 PRN PRN Reason: Cough/SOB Benzonatate (Tessalon Perles) 100 mg PO TID [facility] Last Admin: 05/04/17 10:46 Dose: 100 mg Dexamethasone (Decadron) 4 mg PO BID [facility] Last Admin: 05/04/17 10:43 Dose: 4 mg Docusate Sodium (Colace) 100 mg PO BID [facility] Last Admin: 05/04/17 10:43 Dose: 100 mg Enoxaparin Sodium (Lovenox) 40 mg SC DAILY [facility] Last Admin: 05/04/17 10:43 Dose: 40 mg Guaifenesin (Mucinex La) 600 mg PO BID [facility] Last Admin: 05/04/17 10:43 Dose: 600 mg Moxifloxacin HCl (Avelox Iv 400mg/250ml Ns) 400 mg in 250 mls @ 167 mls/hr IVPB Q24H [facility] Last Admin: 05/04/17 10:41 Dose: 167 mls/hr Vancomycin HCl 1 gm/ Sodium (Chloride) 200 mls @ 133 mls/hr IVPB Q12H [facility] Stop: 05/09/17 12:31 Last Admin: 05/04/17 12:17 Dose: 133 mls/hr Sodium Chloride (Sodium Chloride 0.9%) 1,000 mls @ 150 mls/hr IV .Q6H40M [facility] Last Admin: 05/04/17 13:13 Dose: Not Given Ondansetron HCl (Zofran Odt) 4 mg PO Q6H PRN PRN Reason: Nausea/Vomiting Oseltamivir Phosphate (Tamiflu Cap) 75 mg PO BID [facility] Stop: 05/08/17 16:28 Last Admin: 05/04/17 10:43 Dose: 75 mg Oxycodone/Acetaminophen (Percocet 5/325 Mg Tab) 2 tab PO Q4H PRN PRN Reason: Pain, moderate (4-7) Stop: 05/06/17 16:10 Simethicone (Mylicon Chew Tab) 80 mg PO Q6H [facility] - Labs Labs: 05/04/17 06:04 05/04/17 06:04 - Constitutional Appears: Non-toxic, No Acute Distress - Head Exam Head Exam: ATRAUMATIC, NORMOCEPHALIC - Eye Exam Eye Exam: EOMI, Normal appearance Pupil Exam: NORMAL ACCOMODATION - ENT Exam ENT Exam: Mucous Membranes Moist - Respiratory Exam Respiratory Exam: Clear to Ausculation Bilateral, NORMAL BREATHING PATTERN. absent: Accessory Muscle Use, Rales, Rhonchi, Wheezes, Respiratory Distress - Cardiovascular Exam Cardiovascular Exam: REGULAR RHYTHM, +S1 - GI/Abdominal Exam GI & Abdominal Exam: Soft, Normal Bowel Sounds. absent: Distended, Firm, Guarding, Rigid, Tenderness, Organomegaly, Rebound Additional comments: Burping throughout the entire exam. - Extremities Exam Extremities Exam: Normal Inspection. absent: Calf Tenderness, Pedal Edema - Neurological Exam Neurological Exam: Alert, Awake, Oriented x3 - Psychiatric Exam Psychiatric exam: Normal Affect, Normal Mood - Skin Skin Exam: Dry, Warm Assessment and Plan - Assessment and Plan (Free Text) Plan: Productive Cough - improving Bronchitis CXR 05/03/17 - Findings are most compatible with COPD/atypical/viral pneumonitis. Nodular opacities in the left mid lung could be postinfectious/ inflammatory in etiology however follow-up CT scan after medical management is recommended to ensure complete resolution. CXR 05/04/17 - No interval change perceived -bronchovascular initial for markings minimally yet similar. No interval consolidation ESR 26 CRP Procal. 0.11 Avelox 400mg IVPB daily Vanco 1gm IVPB q12h NS @ 150mL/hr Percocet 2 tabs PO q4h PRN Mucinex 600mg PO BID Tessalon Perles 100mg PO TID Duoneb 3mL INH q6h PRN f/u blood/urine cultures Flu positive myco neg HIV neg f/u legionella Positive Flu Droplet precautions Tamiflu 75mg PO BID x 5days Zofran 4mg PO q6h PRN Clear Liquid Diet - advance as tolerated Excessive Belching Simethacone 80mg PO q6h Metastatic Breast CA CT Chest/Abd/Pelvis 04/28/17 - 1. There has been slight interval enlargement of a lesion in the left breast on series 3, image 62 which is marked with a surgical clip, previously measuring 18 mm in greatest dimension and currently 20 mm. There are a few smaller nodular densities in both breasts as well. Please correlate clinically and if indicated followup can be obtained. 2. No hilar adenopathy. There are some borderline mediastinal subcarinal nodes without jana adenopathy. 3. Small hiatal hernia. Questionable mild wall thickening involving portions of the esophagus versus underdistention. Please correlate clinically. 4. No evidence for large acute pulmonary embolism. Some of the smaller branches are suboptimally evaluated due to motion artifact. 5. There are several small subpleural and pleural nodular opacities in the left upper lobe. For reference, one of these measures 8 mm in greatest dimension on series 3, image 20. A second lesion measures 11 mm anteriorly on series 3, image 22. A third lesion measures 11 mm on series 3, image 38. There are additional similar and smaller lesions in the vicinity as well. There are a few smaller lesions in the right upper lobe and right middle lobe as well. These lesions are suspicious for metastases. 6. There is an expansile destructive lesion involving the right fourth rib laterally. This measures 2.6 CM in greatest dimension on series 3, image 28. 7. Again seen are numerous hypodense lesions in the liver compatible with metastases. However, these appear less prominent and less numerous on the current study than on the prior study dated 10/22/2016. Please correlate clinically. 8. There is a vague expansile lesion of the right eighth ribs postero- laterally. This however appears less prominent currently than on the prior study dated 10/22/2016. 9. Scattered lytic and blastic lesions are again seen in the thoracic and lumbar spine although these appear overall slightly less prominent currently than on 10/22/2016. Percocet 2tabs 5/325 q4h PRN Prophylactic Measure Droplet isolation Lovenox 40mg SC daily Pepcid 20mg PO daily Colace 100mg PO BID Physical Therapy Case discussed with Dr. Bridget Posey PGY1 <Cesar Gill H - Last Filed: 05/04/17 15:41> Objective - Vital Signs/Intake and Output Vital Signs (last 24 hours): Temp Pulse Resp BP Pulse Ox 98 F 84 20 100/64 94 L 05/04/17 15:38 05/04/17 15:38 05/04/17 15:38 05/04/17 15:38 05/04/17 15:38 Intake and Output: 05/04/17 05/04/17 06:59 18:59 Intake Total 800 720 Balance 800 720 - Medications Medications: Current Medications Albuterol/Ipratropium (Duoneb 3 Mg/0.5 Mg (3 Ml) Ud) 3 ml INH RQ6 PRN PRN Reason: Cough/SOB Benzonatate (Tessalon Perles) 100 mg PO TID [facility] Last Admin: 05/04/17 14:36 Dose: 100 mg Dexamethasone (Decadron) 4 mg PO BID [facility] Last Admin: 05/04/17 10:43 Dose: 4 mg Docusate Sodium (Colace) 100 mg PO BID [facility] Last Admin: 05/04/17 10:43 Dose: 100 mg Enoxaparin Sodium (Lovenox) 40 mg SC DAILY [facility] Last Admin: 05/04/17 10:43 Dose: 40 mg Famotidine (Pepcid) 20 mg PO DAILY [facility] Last Admin: 05/04/17 14:57 Dose: 20 mg Guaifenesin (Mucinex La) 600 mg PO BID [facility] Last Admin: 05/04/17 10:43 Dose: 600 mg Sodium Chloride (Sodium Chloride 0.9%) 1,000 mls @ 150 mls/hr IV .Q6H40M [facility] Last Admin: 05/04/17 13:13 Dose: Not Given Ondansetron HCl (Zofran Odt) 4 mg PO Q6H PRN PRN Reason: Nausea/Vomiting Oseltamivir Phosphate (Tamiflu Cap) 75 mg PO BID [facility] Stop: 05/08/17 16:28 Last Admin: 05/04/17 10:43 Dose: 75 mg Oxycodone/Acetaminophen (Percocet 5/325 Mg Tab) 2 tab PO Q4H PRN PRN Reason: Pain, moderate (4-7) Stop: 05/06/17 16:10 Simethicone (Mylicon Chew Tab) 80 mg PO Q6H [facility] Last Admin: 05/04/17 14:36 Dose: 80 mg - Labs Labs: 05/04/17 06:04 05/04/17 06:04 Attending/Attestation - Attestation I have personally seen and examined this patient.: Yes I have fully participated in the care of the patient.: Yes I have reviewed all pertinent clinical information, including history, physical exam and plan: Yes Notes (Text): 05/04/17 15:41 Medical attending: Patient was seen and examined by me, reviewed the above note by registered medical transcriptionist and agree. As mentioned above the resident note the patient was recently here and discharged. The intention was for the patient to have chemotherapy done this coming on May 06. However she returned on Wednesday due to weakness, chills, coughing, and was subsequently found to have positive influenza. She's currently on intravenous fluids at this time as she's been feeling really nauseous with some vomiting. She also has been placed on Tamiflu by mouth twice a day. Regarding advance her diet as tolerated. Her pending cultures at this moment however nevertheless have her on Avelox and Vancomycin Thank you very much, Cesar Gill
[2017-05-04 14:14] LABS: H INFLUENZAE B NOT REQUIRED (NEGATIVE); N MENINGITIS ACY/W135 NOT REQUIRED (NEGATIVE); N MENINGITIS B/ECOLI K1 NOT REQUIRED (NEGATIVE)
[2017-05-04] MEDS: Simethicone 80 mg Chewtab PO SCH ×2 (14:36→20:03)
--- NOTE | 2017-05-04 15:24 | CP.PCM.CON ---
History of Present Illness - History of Present Illness History of Present Illness: dictated Past Patient History - Infectious Disease Hx of Infectious Diseases: None - Past Medical History & Family History Past Medical History?: Yes - Past Social History Smoking Status: Never Smoked - CARDIAC Hx Hypertension: Yes - PULMONARY Hx Respiratory Disorders: No - NEUROLOGICAL Hx Neurological Disorder: No - HEENT Hx HEENT Problems: No - RENAL Hx Chronic Kidney Disease: No - ENDOCRINE/METABOLIC Hx Endocrine Disorders: No - HEMATOLOGICAL/ONCOLOGICAL Hx Blood Disorders: Yes Hx Cancer: Yes (Breast with mets to liver, Rt rib, spine) - INTEGUMENTARY Hx Dermatological Problems: No - MUSCULOSKELETAL/RHEUMATOLOGICAL Hx Arthritis: Yes (KNEE, BACK) - GASTROINTESTINAL Hx Gastrointestinal Disorders: Yes Hx Gastroesophageal Reflux: Yes - GENITOURINARY/GYNECOLOGICAL Hx Genitourinary Disorders: No - PSYCHIATRIC Hx Substance Use: No - SURGICAL HISTORY Hx Appendectomy: Yes - ANESTHESIA Hx Anesthesia: Yes Hx Anesthesia Reactions: No Hx Malignant Hyperthermia: No Meds Allergies/Adverse Reactions: Allergies Allergy/AdvReac Type Severity Reaction Status Date / Time cefepime [From Maxipime] Allergy REDNESS Verified 05/03/17 12:18 honey Allergy Verified 05/03/17 12:18 octopus Allergy ANAPHYLAXIS Verified 05/03/17 12:18 docetaxel AdvReac SEVERE LOW Verified 05/03/17 12:18 BACK PAIN; RESPIRATORY DISTRESS - Medications Medications: Current Medications Albuterol/Ipratropium (Duoneb 3 Mg/0.5 Mg (3 Ml) Ud) 3 ml INH RQ6 PRN PRN Reason: Cough/SOB Benzonatate (Tessalon Perles) 100 mg PO TID [facility] Last Admin: 05/04/17 14:36 Dose: 100 mg Dexamethasone (Decadron) 4 mg PO BID [facility] Last Admin: 05/04/17 10:43 Dose: 4 mg Docusate Sodium (Colace) 100 mg PO BID [facility] Last Admin: 05/04/17 10:43 Dose: 100 mg Enoxaparin Sodium (Lovenox) 40 mg SC DAILY [facility] Last Admin: 05/04/17 10:43 Dose: 40 mg Famotidine (Pepcid) 20 mg PO DAILY [facility] Last Admin: 05/04/17 14:57 Dose: 20 mg Guaifenesin (Mucinex La) 600 mg PO BID [facility] Last Admin: 05/04/17 10:43 Dose: 600 mg Sodium Chloride (Sodium Chloride 0.9%) 1,000 mls @ 150 mls/hr IV .Q6H40M [facility] Last Admin: 05/04/17 13:13 Dose: Not Given Ondansetron HCl (Zofran Odt) 4 mg PO Q6H PRN PRN Reason: Nausea/Vomiting Oseltamivir Phosphate (Tamiflu Cap) 75 mg PO BID [facility] Stop: 05/08/17 16:28 Last Admin: 05/04/17 10:43 Dose: 75 mg Oxycodone/Acetaminophen (Percocet 5/325 Mg Tab) 2 tab PO Q4H PRN PRN Reason: Pain, moderate (4-7) Stop: 05/06/17 16:10 Simethicone (Mylicon Chew Tab) 80 mg PO Q6H [facility] Last Admin: 05/04/17 14:36 Dose: 80 mg Results - Vital Signs Recent Vital Signs: Last Vital Signs Temp 99.7 F H 05/04/17 07:45 Pulse 91 H 05/04/17 11:12 Resp 20 05/04/17 07:45 BP 147/88 05/04/17 07:45 Pulse Ox 94 L 05/04/17 11:12 - Labs Result Diagrams: 05/04/17 06:04 05/04/17 06:04 Labs: Laboratory Results - last 24 hr 05/03/17 05/03/17 05/03/17 00:06 15:31 16:36 WBC RBC Hgb Hct MCV MCH MCHC RDW Plt Count MPV Neut % (Auto) Lymph % (Auto) Anson % (Auto) Eos % (Auto) Baso % (Auto) Neut # Lymph # Anson # Eos # Baso # ESR 26 H Sodium Potassium Chloride Carbon Dioxide Anion Gap BUN Creatinine Est GFR ( Amer) Est GFR (Non-Af Amer) Random Glucose Calcium Phosphorus Magnesium Total Bilirubin AST ALT Alkaline Phosphatase Total Protein Albumin Globulin Albumin/Globulin Ratio Procalcitonin HIV 1&2 Antibody Screen Influenza Typ A,B (EIA) Pos for influenza a H H.influenzae Type B Ag Ur L.pneumophila Ag Negative Mycoplasma pneumon IgM N.meningitidis ACY/W135 N.meningi B/E.coli K1 Ag Group B Strep Antigen S. pneumoniae Antigen 05/03/17 05/03/17 05/04/17 16:50 16:50 00:06 WBC RBC Hgb Hct MCV MCH MCHC RDW Plt Count MPV Neut % (Auto) Lymph % (Auto) Anson % (Auto) Eos % (Auto) Baso % (Auto) Neut # Lymph # Anson # Eos # Baso # ESR Sodium Potassium Chloride Carbon Dioxide Anion Gap BUN Creatinine Est GFR ( Amer) Est GFR (Non-Af Amer) Random Glucose Calcium Phosphorus Magnesium Total Bilirubin AST ALT Alkaline Phosphatase Total Protein Albumin Globulin Albumin/Globulin Ratio Procalcitonin 0.11 L HIV 1&2 Antibody Screen Influenza Typ A,B (EIA) H.influenzae Type B Ag Not required Ur L.pneumophila Ag Mycoplasma pneumon IgM Negative N.meningitidis ACY/W135 Not required N.meningi B/E.coli K1 Ag Not required Group B Strep Antigen Not required S. pneumoniae Antigen Negative 05/04/17 05/04/17 05/04/17 06:04 06:04 06:04 WBC 3.0 L RBC 3.64 L Hgb 11.2 Hct 33.1 L MCV 91.0 MCH 30.8 MCHC 33.8 RDW 15.9 H Plt Count 256 MPV 9.2 Neut % (Auto) 63.1 Lymph % (Auto) 22.2 Anson % (Auto) 13.9 H Eos % (Auto) 0.3 Baso % (Auto) 0.5 Neut # 1.9 Lymph # 0.7 L Anson # 0.4 Eos # 0.0 Baso # 0.0 ESR Sodium 132 Potassium 3.4 L Chloride 102 Carbon Dioxide 23 Anion Gap 10 BUN 11 Creatinine 0.6 L Est GFR ( Amer) > 60 Est GFR (Non-Af Amer) > 60 Random Glucose 92 Calcium 7.6 L Phosphorus 4.3 Magnesium 1.5 L Total Bilirubin 0.3 AST 40 H ALT 38 Alkaline Phosphatase 92 Total Protein 6.5 Albumin 3.3 L Globulin 3.2 Albumin/Globulin Ratio 1.1 Procalcitonin HIV 1&2 Antibody Screen Negative Influenza Typ A,B (EIA) H.influenzae Type B Ag Ur L.pneumophila Ag Mycoplasma pneumon IgM N.meningitidis ACY/W135 N.meningi B/E.coli K1 Ag Group B Strep Antigen S. pneumoniae Antigen
--- NOTE | 2017-05-04 23:03 | CON ---
DATE: INFECTIOUS DISEASE CONSULTATION REQUESTING PHYSICIAN: Cesar Gill DO. HISTORY OF PRESENT ILLNESS: This patient is a 62-year-old female. She has a history of breast cancer with metastasis to liver, lung, thoracic spine and she is complaining of left -sided pain. She did come in her and her flu swab is positive. She is on pain medications. She gets chemo from Dr. Israel and she was discharged recently, comes in with productive cough and is now flu positive and she is also on another antibiotic at this time. She is having lot of gas from the mouth. She is burping a lot. Denies any shortness of breath. Does complain of pain on the left chest wall. PAST MEDICAL HISTORY: Significant for breast cancer with metastasis to the bone. PAST SURGICAL HISTORY: Lymph node resection 7 years ago. She also complains of throat pain. She states she has a bad dental problem on the right side, which cannot be removed as she has been on chemo. She said she was started on chemo but now there is another destructive lesion found and they are going to change the chemo and the doctor is going to talk to her on . Has surgical history of appendicectomy in the past. FAMILY HISTORY: Significant for brother and cousins having cancer. Mother and family is healthy. SOCIAL HISTORY: She has never smoked. Does not drink. No drug. MEDICATIONS: She is on Percocet. Right now the medication she is on albuterol, Tessalon, Decadron, Colace, Lovenox, Pepcid, Mucinex. She is on moxifloxacin. She is also on Tamiflu. They are giving Mylicon right now and she is on vancomycin 1 g q.12 hours. ALLERGIES: SHE IS ALLERGIC TO CEFEPIME, HONEY, OCTOPUS AND DOCETAXEL. REVIEW OF SYSTEMS: Hypertension, yes. Pulmonary, no. No new neurological problem. No HEENT problems. No renal problems in the past. No endocrine problems. The cancer has spread to the ribs. Denies any skin problems. Does complain of arthritis. Does have gastroesophageal reflux disease. Denies any urinary symptoms. Does have some psych issues. She came in with cough and yellowish phlegm for 2 days and she was recently here and she states she has had antibiotics in the recent past. PHYSICAL EXAMINATION: VITAL SIGNS: I find her temperature is 99.7 right now. She had T-max of 102.4 yesterday and now it is 99.7, pulse is 90, blood pressure 147/88, respirations are 20. HEENT: Head is atraumatic, normocephalic. NECK: Supple. LUNGS: Clear. No crackles or rales present. Decreased breath sounds in the left base. HEART: S1 and S2 is regular. ABDOMEN: Soft, nontender. No guarding. No rigidity present. She does have localized tenderness on the left rib cage, localized to one area and she states that is the area she has rib metastasis. Has hepatomegaly. EXTREMITIES: No edema. LABORATORY DATA: Her procalcitonin level is 0.11. Labs show white count is 3, hemoglobin 11.2, hematocrit 33.1, platelet count is 256. Sodium is 132, potassium 3.4, chloride 102, CO2 is 23, creatinine 0.6. Microbiology brown, sputum final from 05/03/2017 shows unable to process because gram stain indicated oropharyngeal contamination. So, they discarded it. Chest x-ray today shows no interval change but bronchoalveolar no dense consolidation, prior reference left mid lung nodular density less conspicuous. Overall bronchial markings, interstitial markings minimally increased, similar appearing. Right fourth rib lytic lesion. No interval consolidation. So I think she has flu at this time and her white count is dropping. She recently had antibiotics. She was here not too long ago. I would hold back on the antibiotics, especially vancomycin at this time and the Avelox and treat her for flu. I will follow. Ozzy Livingston MD
[2017-05-05] MEDS: Simethicone 80 mg Chewtab PO SCH ×4 (01:50→21:13)
[2017-05-05] MEDS: Sodium Chloride 0.9% 1,000 ML IV SCH ×3 (02:00→18:32)
[2017-05-05 08:45] LABS: BASO % 0.3 % (0.0-2.0); HEMATOCRIT 33.1 % (34.0-47.0); LYMPH % 45.9 % (20.0-40.0); MEAN CELL VOLUME 91.8 fL (81.0-99.0); MEAN CORPUSCULAR HGB CONC 33.8 g/dL (33.0-37.0); MEAN PLATELET VOLUME 9.3 fL (7.2-11.7); MONO # 0.3 K/uL (0.0-0.8); MONO % 15.6 % (0.0-10.0); NRBC % 0.5 % (0.0-2.0); RED CELL DISTRIBUTION WIDTH 16.1 % (11.5-14.5); WHITE BLOOD COUNT 2.1 K/uL (4.8-10.8)
--- NOTE | 2017-05-05 08:59 | CP.PCM.PN ---
<Karl Posey - Last Filed: 05/05/17 12:07> Subjective - Date & Time of Evaluation Date of Evaluation: 05/05/17 Time of Evaluation: 08:50 - Subjective Subjective: PGY1 Medicine Note for Dr. Gill Patient seen and examined at bedside this morning. Patient reports that her belching is still present but has improved. She states that she is still coughing and experiencing the substernal chest pain during her coughing episodes. Patient reports that she was experiencing chills throughout the night so she turned the heater on in her room. Her room was extremely warm and patient stated that she was still cold. She states that her nausea has been improving and that she has not vomited since yesterday. Patient denies any other symptoms at this time. Objective - Vital Signs/Intake and Output Vital Signs (last 24 hours): Temp Pulse Resp BP Pulse Ox 97.8 F 80 20 137/77 97 05/05/17 08:15 05/05/17 08:15 05/05/17 08:15 05/05/17 08:15 05/05/17 08:15 Intake and Output: 05/05/17 05/05/17 06:59 18:59 Intake Total 2200 Balance 2200 - Medications Medications: Current Medications Albuterol/Ipratropium (Duoneb 3 Mg/0.5 Mg (3 Ml) Ud) 3 ml INH RQ6 PRN PRN Reason: Cough/SOB Benzonatate (Tessalon Perles) 100 mg PO TID [facility] Last Admin: 05/04/17 17:19 Dose: 100 mg Dexamethasone (Decadron) 4 mg PO BID [facility] Last Admin: 05/04/17 17:40 Dose: 4 mg Docusate Sodium (Colace) 100 mg PO BID [facility] Last Admin: 05/04/17 17:20 Dose: 100 mg Enoxaparin Sodium (Lovenox) 40 mg SC DAILY [facility] Last Admin: 05/04/17 10:43 Dose: 40 mg Famotidine (Pepcid) 20 mg PO DAILY [facility] Last Admin: 05/04/17 14:57 Dose: 20 mg Guaifenesin (Mucinex La) 600 mg PO BID [facility] Last Admin: 05/04/17 17:20 Dose: 600 mg Sodium Chloride (Sodium Chloride 0.9%) 1,000 mls @ 150 mls/hr IV .[id number] [facility] Last Admin: 05/05/17 02:00 Dose: Not Given Ondansetron HCl (Zofran Odt) 4 mg PO Q6H PRN PRN Reason: Nausea/Vomiting Oseltamivir Phosphate (Tamiflu Cap) 75 mg PO BID [facility] Stop: 05/08/17 16:28 Last Admin: 05/04/17 17:19 Dose: 75 mg Oxycodone/Acetaminophen (Percocet 5/325 Mg Tab) 2 tab PO Q4H PRN PRN Reason: Pain, moderate (4-7) Stop: 05/06/17 16:10 Simethicone (Mylicon Chew Tab) 80 mg PO Q6H [facility] Last Admin: 05/05/17 08:13 Dose: 80 mg - Labs Labs: 05/05/17 08:31 05/04/17 06:04 - Constitutional Appears: Non-toxic, No Acute Distress - Head Exam Head Exam: ATRAUMATIC, NORMOCEPHALIC - Eye Exam Eye Exam: EOMI, Normal appearance - ENT Exam ENT Exam: Mucous Membranes Moist - Neck Exam Neck Exam: Full ROM. absent: Lymphadenopathy - Respiratory Exam Respiratory Exam: Clear to Ausculation Bilateral, NORMAL BREATHING PATTERN. absent: Accessory Muscle Use, Rales, Rhonchi, Wheezes, Respiratory Distress - Cardiovascular Exam Cardiovascular Exam: REGULAR RHYTHM, +S1 - GI/Abdominal Exam GI & Abdominal Exam: Soft, Normal Bowel Sounds. absent: Distended, Firm, Guarding, Rigid, Tenderness - Extremities Exam Extremities Exam: absent: Calf Tenderness, Pedal Edema - Neurological Exam Neurological Exam: Alert, Awake, Oriented x3 - Psychiatric Exam Psychiatric exam: Normal Affect, Normal Mood - Skin Skin Exam: Dry, Warm Assessment and Plan - Assessment and Plan (Free Text) Plan: Productive Cough - improving Bronchitis CXR 05/03/17 - Findings are most compatible with COPD/atypical/viral pneumonitis. Nodular opacities in the left mid lung could be postinfectious/ inflammatory in etiology however follow-up CT scan after medical management is recommended to ensure complete resolution. CXR 05/04/17 - No interval change perceived -bronchovascular initial for markings minimally yet similar. No interval consolidation CXR 05/05/17 - Limited interval left basilar atelectasis or infiltrate and trace of pleural effusion. Remaining lung martinez clear. Stable cardiac silhouette ESR 26 CRP 22 Procal. 0.11 Avelox 400mg IVPB daily Vanco 1gm IVPB q12h NS @ 150mL/hr decreased to 75mL/hr Percocet 2 tabs PO q4h PRN Mucinex 600mg PO BID Tessalon Perles 100mg PO TID Duoneb 3mL INH q6h PRN blood cultures - negative x2 urine cultures - Coag Neg Staph Flu positive Mycoplamsa pneumo negative S. Pneumo negative HIV neg f/u legionella Positive Flu Droplet precautions nausea/vomiting improving Tamiflu 75mg PO BID x 5days Zofran 4mg PO q6h PRN Regular Diet Excessive Belching - improving Simethacone 80mg PO q6h Metastatic Breast CA CT Chest/Abd/Pelvis 04/28/17 - 1. There has been slight interval enlargement of a lesion in the left breast on series 3, image 62 which is marked with a surgical clip, previously measuring 18 mm in greatest dimension and currently 20 mm. There are a few smaller nodular densities in both breasts as well. Please correlate clinically and if indicated followup can be obtained. 2. No hilar adenopathy. There are some borderline mediastinal subcarinal nodes without jana adenopathy. 3. Small hiatal hernia. Questionable mild wall thickening involving portions of the esophagus versus underdistention. Please correlate clinically. 4. No evidence for large acute pulmonary embolism. Some of the smaller branches are suboptimally evaluated due to motion artifact. 5. There are several small subpleural and pleural nodular opacities in the left upper lobe. For reference, one of these measures 8 mm in greatest dimension on series 3, image 20. A second lesion measures 11 mm anteriorly on series 3, image 22. A third lesion measures 11 mm on series 3, image 38. There are additional similar and smaller lesions in the vicinity as well. There are a few smaller lesions in the right upper lobe and right middle lobe as well. These lesions are suspicious for metastases. 6. There is an expansile destructive lesion involving the right fourth rib laterally. This measures 2.6 CM in greatest dimension on series 3, image 28. 7. Again seen are numerous hypodense lesions in the liver compatible with metastases. However, these appear less prominent and less numerous on the current study than on the prior study dated 10/22/2016. Please correlate clinically. 8. There is a vague expansile lesion of the right eighth ribs postero- laterally. This however appears less prominent currently than on the prior study dated 10/22/2016. 9. Scattered lytic and blastic lesions are again seen in the thoracic and lumbar spine although these appear overall slightly less prominent currently than on 10/22/2016. Percocet 2tabs 5/325 q4h PRN Prophylactic Measure Droplet isolation Lovenox 40mg SC daily Pepcid 20mg PO daily Colace 100mg PO BID Physical Therapy Case discussed with Dr. Bridget Posey PGY1 <Cesar Gill H - Last Filed: 05/05/17 14:13> Objective - Vital Signs/Intake and Output Vital Signs (last 24 hours): Temp Pulse Resp BP Pulse Ox 97.8 F 80 20 137/77 97 05/05/17 08:15 05/05/17 08:15 05/05/17 08:15 05/05/17 08:15 05/05/17 08:15 Intake and Output: 05/05/17 05/05/17 06:59 18:59 Intake Total 2200 Balance 2200 - Medications Medications: Current Medications Albuterol/Ipratropium (Duoneb 3 Mg/0.5 Mg (3 Ml) Ud) 3 ml INH RQ6 PRN PRN Reason: Cough/SOB Benzonatate (Tessalon Perles) 100 mg PO TID [facility] Last Admin: 05/05/17 13:37 Dose: 100 mg Dexamethasone (Decadron) 4 mg PO BID [facility] Last Admin: 05/05/17 10:21 Dose: 4 mg Docusate Sodium (Colace) 100 mg PO BID [facility] Last Admin: 05/05/17 10:21 Dose: 100 mg Enoxaparin Sodium (Lovenox) 40 mg SC DAILY [facility] Last Admin: 05/05/17 10:21 Dose: 40 mg Famotidine (Pepcid) 20 mg PO DAILY [facility] Last Admin: 05/05/17 10:21 Dose: 20 mg Guaifenesin (Mucinex La) 600 mg PO BID [facility] Last Admin: 05/05/17 10:21 Dose: 600 mg Sodium Chloride (Sodium Chloride 0.9%) 1,000 mls @ 75 mls/hr IV .[id number] [facility] Last Admin: 05/05/17 12:43 Dose: 75 mls/hr Ondansetron HCl (Zofran Odt) 4 mg PO Q6H PRN PRN Reason: Nausea/Vomiting Oseltamivir Phosphate (Tamiflu Cap) 75 mg PO BID [facility] Stop: 05/08/17 16:28 Last Admin: 05/05/17 10:21 Dose: 75 mg Oxycodone/Acetaminophen (Percocet 5/325 Mg Tab) 2 tab PO Q4H PRN PRN Reason: Pain, moderate (4-7) Stop: 05/06/17 16:10 Simethicone (Mylicon Chew Tab) 80 mg PO Q6H [facility] Last Admin: 05/05/17 13:33 Dose: 80 mg - Labs Labs: 05/05/17 08:31 05/05/17 09:08 Attending/Attestation - Attestation I have personally seen and examined this patient.: Yes I have fully participated in the care of the patient.: Yes I have reviewed all pertinent clinical information, including history, physical exam and plan: Yes Notes (Text): 05/05/17 14:13 Medical attending: Patient was seen and examined by me as well, agrees the above note by medical logistics specialist. The patient reported that she was not having any high fevers she was previously however she did report some night sweats at night. She reports that currently she feels okay at this moment. Regarding order portable chest x-ray. She is tolerating her diet well; cut fluids to 75 mL an hour. Infetious disease has discontinued the vancomycin and Avelox that she was previously on We'll come and evaluate the patient again tomorrow, if she is doing stable we' ll consider discharge tomorrow. The patient reports that she is unable to walk without any difficulty in her room thank you Cesar Gill
[2017-05-05 09:48] LABS: ALKALINE PHOSPHATASE 87 U/L (38-126); ALT/SGPT 31 U/L (9-52); AST/SGOT 34 U/L (14-36); BILIRUBIN,TOTAL 0.3 mg/dL (0.2-1.3); BLOOD UREA NITROGEN 11 mg/dL (7-17); CALCIUM 8.2 mg/dl (8.6-10.4); CARBON DIOXIDE 21 mmol/L (22-30); CHLORIDE 109 mmol/L (98-107); GFR AFRICAN-AMERICAN > 60; GLUCOSE,RANDOM 101 mg/dL (65-105); MAGNESIUM 1.9 mg/dL (1.6-2.3); POTASSIUM 3.7 mmol/L (3.6-5.2); SODIUM 135 mmol/L (132-148); TOTAL PROTEIN 6.4 g/dL (6.3-8.3)
[2017-05-05] MEDS: Enoxaparin 40 mg Syringe SC SCH (10:21)
[2017-05-05] MEDS: guaiFENesin 600 mg ER Tab PO SCH ×2 (10:21→18:32)
--- NOTE | 2017-05-05 11:47 | RAD ---
HISTORY: f/u productive cough COMPARISON: Portable chest 05/04/2017. FINDINGS: LUNGS: Limited inspiratory volume again appreciated. Limited left basilar atelectasis or infiltrate is appreciate with remaining lung martinez clear. PLEURA: Trace of pleural effusion is in question. None is seen at the right. No pneumothorax apparent. CARDIOVASCULAR: Stable cardiac silhouette. OSSEOUS STRUCTURES: No significant abnormalities. VISUALIZED UPPER ABDOMEN: Normal. OTHER FINDINGS: None. IMPRESSION: Limited interval left basilar atelectasis or infiltrate and trace of pleural effusion. Remaining lung martinez clear. Stable cardiac silhouette.
[2017-05-05] MEDS ORDERED: Sodium Chloride 0.9% 1,000 ML IV SCH ×2 (12:11→14:17)
--- NOTE | 2017-05-05 14:18 | CP.PCM.PN ---
Subjective - Date & Time of Evaluation Date of Evaluation: 05/05/17 Time of Evaluation: 01:40 - Subjective Subjective: dictated Objective - Vital Signs/Intake and Output Vital Signs (last 24 hours): Temp Pulse Resp BP Pulse Ox 97.8 F 80 20 137/77 97 05/05/17 08:15 05/05/17 08:15 05/05/17 08:15 05/05/17 08:15 05/05/17 08:15 Intake and Output: 05/05/17 05/05/17 06:59 18:59 Intake Total 2200 Balance 2200 - Medications Medications: Current Medications Albuterol/Ipratropium (Duoneb 3 Mg/0.5 Mg (3 Ml) Ud) 3 ml INH RQ6 PRN PRN Reason: Cough/SOB Benzonatate (Tessalon Perles) 100 mg PO TID [facility] Last Admin: 05/05/17 13:37 Dose: 100 mg Dexamethasone (Decadron) 4 mg PO BID [facility] Last Admin: 05/05/17 10:21 Dose: 4 mg Docusate Sodium (Colace) 100 mg PO BID [facility] Last Admin: 05/05/17 10:21 Dose: 100 mg Enoxaparin Sodium (Lovenox) 40 mg SC DAILY [facility] Last Admin: 05/05/17 10:21 Dose: 40 mg Famotidine (Pepcid) 20 mg PO DAILY [facility] Last Admin: 05/05/17 10:21 Dose: 20 mg Guaifenesin (Mucinex La) 600 mg PO BID [facility] Last Admin: 05/05/17 10:21 Dose: 600 mg Sodium Chloride (Sodium Chloride 0.9%) 1,000 mls @ 21 mls/hr IV .Q24H [facility] Ondansetron HCl (Zofran Odt) 4 mg PO Q6H PRN PRN Reason: Nausea/Vomiting Oseltamivir Phosphate (Tamiflu Cap) 75 mg PO BID [facility] Stop: 05/08/17 16:28 Last Admin: 05/05/17 10:21 Dose: 75 mg Oxycodone/Acetaminophen (Percocet 5/325 Mg Tab) 2 tab PO Q4H PRN PRN Reason: Pain, moderate (4-7) Stop: 05/06/17 16:10 Simethicone (Mylicon Chew Tab) 80 mg PO Q6H [facility] Last Admin: 05/05/17 13:33 Dose: 80 mg - Labs Labs: 05/05/17 08:31 05/05/17 09:08
--- NOTE | 2017-05-05 14:58 | CON ---
DATE: ONCOLOGY CONSULTATION HISTORY OF PRESENT ILLNESS: This is a 62-year-old woman, well known to me for breast cancer widely metastatic to her lungs, to her lymph nodes, to her liver and to her bones, and she was just discharged a few days ago, and at that time, it was clear on the CAT scan that she had progressive cancer and we had a decision to change her chemotherapy. At this point, she is getting Herceptin, Perjeta, and Taxotere, and she was supposed to make an appointment to see me this week to discuss the change in chemotherapy. She was discharged and then returned for persistent coughing; does not seem to be fever, but just persistent coughing. PHYSICAL EXAMINATION: SKIN: No petechiae. No bruises. HEENT: Anicteric. NODES: Nonpalpable in the axillary, cervical, supraclavicular or inguinal regions. LUNGS: Clear at present. No vertebral tenderness. HEART: S1 and S2. ABDOMEN: Shows no liver, no spleen. EXTREMITIES: No edema. CENTRAL NERVOUS SYSTEM: No focal findings. ASSESSMENT AND PLAN: Patient has positive Haemophilus influenzae result and is being treated for Haemophilus influenzae with Tamiflu. I told her that she at the time of discharge anytime her primary care doctor says okay. She comes to my office next week and we will further decide what to do in terms of chemotherapy this week because of the flu, but we will make arrangement to probably start it next week, and at the present time, I will leave her further workup to the primary care doctor. Dimitris Israel MD
--- NOTE | 2017-05-05 18:35 | PN ---
DATE: SUBJECTIVE: She states that she feels the same. She is coughing a lot and there was some wheezing. Otherwise, she appears a little better. Denies any joint pain. She denies any history of asthma. PHYSICAL EXAMINATION: VITAL SIGNS: T-max is 97.8, pulse 80, blood pressure 137/77, respirations are 20. HEENT: Head is atraumatic, normocephalic. Tongue is moist. NECK: Supple. LUNGS: Have bilateral wheeze present. HEART: S1 and S2, is regular. ABDOMEN: Soft and nontender. No guarding, no rigidity present EXTREMITIES: Have no edema, clubbing, or cyanosis. LABORATORY DATA: White count is 2.1 today, hemoglobin 11.2, hematocrit 33.7, platelet count is 251. BUN is 11, creatinine 0.5. I will cut down her IV fluids as she is wheezing a lot, just made it to 21 mL. She is asking for a cough syrup and she is on guanfacine. She is wheezing, so she has albuterol on, we will continue those. If her white count drops further, she may need a dose of Neupogen, but we will need to closely monitor her and she is on Tamiflu for now and we will continue that. Ozzy Livingston MD
--- NOTE | 2017-05-05 21:43 | CARD ---
APPROVED REPORT EKG Measurement Heart [id number] CT [id number] [id number] <Conclusion> Normal sinus rhythm Minimal voltage criteria for LVH, may be normal variant Cannot rule out Anterior infarct, age undetermined T wave abnormality, consider inferior ischemia Abnormal ECG
[2017-05-06] MEDS: Simethicone 80 mg Chewtab PO SCH ×3 (02:15→14:00)
--- NOTE | 2017-05-06 06:53 | CP.PCM.PN ---
Subjective - Date & Time of Evaluation Date of Evaluation: 05/06/17 Time of Evaluation: 06:52 - Subjective Subjective: PGY1 Medicine Note for Dr. Gill Objective - Vital Signs/Intake and Output Vital Signs (last 24 hours): Temp Pulse Resp BP Pulse Ox 98.0 F 73 20 146/88 97 05/06/17 00:19 05/06/17 00:19 05/06/17 00:19 05/06/17 00:19 05/06/17 00:19 Intake and Output: 05/05/17 05/06/17 18:59 06:59 Intake Total 730 Balance 730 - Medications Medications: Current Medications Albuterol/Ipratropium (Duoneb 3 Mg/0.5 Mg (3 Ml) Ud) 3 ml INH RQ6 PRN PRN Reason: Cough/SOB Benzonatate (Tessalon Perles) 100 mg PO TID [facility] Last Admin: 05/05/17 18:32 Dose: 100 mg Dexamethasone (Decadron) 4 mg PO BID [facility] Last Admin: 05/05/17 18:31 Dose: 4 mg Docusate Sodium (Colace) 100 mg PO BID [facility] Last Admin: 05/05/17 18:32 Dose: 100 mg Enoxaparin Sodium (Lovenox) 40 mg SC DAILY [facility] Last Admin: 05/05/17 10:21 Dose: 40 mg Famotidine (Pepcid) 20 mg PO DAILY [facility] Last Admin: 05/05/17 10:21 Dose: 20 mg Guaifenesin (Mucinex La) 600 mg PO BID [facility] Last Admin: 05/05/17 18:32 Dose: 600 mg Sodium Chloride (Sodium Chloride 0.9%) 1,000 mls @ 75 mls/hr IV .[id number] [facility] Last Admin: 05/05/17 18:32 Dose: 75 mls/hr Ondansetron HCl (Zofran Odt) 4 mg PO Q6H PRN PRN Reason: Nausea/Vomiting Oseltamivir Phosphate (Tamiflu Cap) 75 mg PO BID [facility] Stop: 05/08/17 16:28 Last Admin: 05/05/17 18:32 Dose: 75 mg Oxycodone/Acetaminophen (Percocet 5/325 Mg Tab) 2 tab PO Q4H PRN PRN Reason: Pain, moderate (4-7) Stop: 05/06/17 16:10 Last Admin: 05/06/17 00:01 Dose: 2 tab Simethicone (Mylicon Chew Tab) 80 mg PO Q6H [facility] Last Admin: 05/06/17 02:15 Dose: 80 mg - Labs Labs: 05/05/17 08:31 05/05/17 09:08
[2017-05-06] MEDS: Sodium Chloride 0.9% 1,000 ML IV SCH (07:15)
[2017-05-06 07:59] LABS: BASO % 0.3 % (0.0-2.0); HEMATOCRIT 34.6 % (34.0-47.0); LYMPH % 40.6 % (20.0-40.0); MEAN CELL VOLUME 90.9 fL (81.0-99.0); MEAN CORPUSCULAR HEMOGLOBIN 31.1 pg (27.0-31.0); MEAN CORPUSCULAR HGB CONC 34.2 g/dL (33.0-37.0); MEAN PLATELET VOLUME 9.2 fL (7.2-11.7); MONO # 0.4 K/uL (0.0-0.8); MONO % 15.1 % (0.0-10.0); NRBC % 0.2 % (0.0-2.0); RED CELL DISTRIBUTION WIDTH 16.1 % (11.5-14.5); WHITE BLOOD COUNT 2.4 K/uL (4.8-10.8)
[2017-05-06 08:53] LABS: ALKALINE PHOSPHATASE 86 U/L (38-126); ALT/SGPT 29 U/L (9-52); AST/SGOT 30 U/L (14-36); BILIRUBIN,TOTAL 0.3 mg/dL (0.2-1.3); BLOOD UREA NITROGEN 13 mg/dL (7-17); CARBON DIOXIDE 24 mmol/L (22-30); CHLORIDE 105 mmol/L (98-107); GFR AFRICAN-AMERICAN > 60; GLUCOSE,RANDOM 106 mg/dL (65-105); MAGNESIUM 1.7 mg/dL (1.6-2.3); PHOSPHOROUS 4.4 mg/dL (2.5-4.5); POTASSIUM 4.1 mmol/L (3.6-5.2); SODIUM 136 mmol/L (132-148); TOTAL PROTEIN 6.9 g/dL (6.3-8.3)
[2017-05-06] MEDS: guaiFENesin 600 mg ER Tab PO SCH ×2 (10:15→18:17)
[2017-05-06] MEDS: Enoxaparin 40 mg Syringe SC SCH (10:16)
--- NOTE | 2017-05-06 11:13 | CP.PCM.DIS ---
Provider - Provider Date of Admission: 05/03/17 14:57 Attending physician: Cesar Gill DO Consults: Hem/Onc: Jhonatan ID: Miki Time Spent in preparation of Discharge (in minutes): 45 Hospital Course - Lab Results Lab Results: Micro Results 05/03/17 22:30 Blood Blood Culture - Preliminary NO GROWTH AFTER 48 HOURS 05/03/17 00:06 Blood Blood Culture - Preliminary NO GROWTH AFTER 48 HOURS 05/03/17 10:20 Other: Please Indicate Mycobacterial Culture - Preliminary 05/03/17 15:38 Urine Urine Culture - Final Staphylococcus Sp Coag Neg 05/03/17 22:22 Sputum Gram Stain - Final 05/03/17 22:22 Sputum Sputum Culture - Final Most Recent Lab Values WBC 2.4 K/uL (4.8-10.8) L 05/06/17 07:30 RBC 3.80 Mil/uL (3.80-5.20) 05/06/17 07:30 Hgb 11.8 g/dL (11.0-16.0) 05/06/17 07:30 Hct 34.6 % (34.0-47.0) 05/06/17 07:30 MCV 90.9 fL (81.0-99.0) 05/06/17 07:30 MCH 31.1 pg (27.0-31.0) H 05/06/17 07:30 MCHC 34.2 g/dL (33.0-37.0) 05/06/17 07:30 RDW 16.1 % (11.5-14.5) H 05/06/17 07:30 Plt Count 274 K/uL (130-400) 05/06/17 07:30 MPV 9.2 fL (7.2-11.7) 05/06/17 07:30 Neut % (Auto) 44.0 % (50.0-75.0) L 05/06/17 07:30 Lymph % (Auto) 40.6 % (20.0-40.0) H 05/06/17 07:30 Riley % (Auto) 15.1 % (0.0-10.0) H 05/06/17 07:30 Eos % (Auto) 0.0 % (0.0-4.0) 05/06/17 07:30 Baso % (Auto) 0.3 % (0.0-2.0) 05/06/17 07:30 Neut # 1.1 K/uL (1.8-7.0) L 05/06/17 07:30 Lymph # 1.0 K/uL (1.0-4.3) 05/06/17 07:30 Riley # 0.4 K/uL (0.0-0.8) 05/06/17 07:30 Eos # 0.0 K/uL (0.0-0.7) 05/06/17 07:30 Baso # 0.0 K/uL (0.0-0.2) 05/06/17 07:30 ESR 26 mm/hr (0-20) H 05/03/17 16:36 Sodium 136 mmol/L (132-148) 05/06/17 07:30 Potassium 4.1 mmol/L (3.6-5.2) 05/06/17 07:30 Chloride 105 mmol/L (98-107) 05/06/17 07:30 Carbon Dioxide 24 mmol/L (22-30) 05/06/17 07:30 Anion Gap 11 (10-20) 05/06/17 07:30 BUN 13 mg/dL (7-17) 05/06/17 07:30 Creatinine 0.6 mg/dL (0.7-1.2) L 05/06/17 07:30 Est GFR ( Amer) > 60 05/06/17 07:30 Est GFR (Non-Af Amer) > 60 05/06/17 07:30 Random Glucose 106 mg/dL (65-105) H 05/06/17 07:30 Calcium 8.0 mg/dl (8.6-10.4) L 05/06/17 07:30 Phosphorus 4.4 mg/dL (2.5-4.5) 05/06/17 07:30 Magnesium 1.7 mg/dL (1.6-2.3) 05/06/17 07:30 Total Bilirubin 0.3 mg/dL (0.2-1.3) 05/06/17 07:30 AST 30 U/L (14-36) 05/06/17 07:30 ALT 29 U/L (9-52) 05/06/17 07:30 Alkaline Phosphatase 86 U/L (38-126) 05/06/17 07:30 C-Reactive Prot, Quant 22.0 mg/L (<8.0) H 05/03/17 16:50 Total Protein 6.9 g/dL (6.3-8.3) 05/06/17 07:30 Albumin 3.4 g/dL (3.5-5.0) L 05/06/17 07:30 Globulin 3.5 gm/dL (2.2-3.9) 05/06/17 07:30 Albumin/Globulin Ratio 1.0 (1.0-2.1) 05/06/17 07:30 Procalcitonin 0.11 NG/ML (0.19-0.49) L 05/03/17 16:50 Urine Color Yellow (YELLOW) 05/03/17 14:12 Urine Clarity Clear (Clear) 05/03/17 14:12 Urine pH 7.0 (5.0-8.0) 05/03/17 14:12 Ur Specific [place] 1.010 (1.003-1.030) 05/03/17 14:12 Urine Protein Negative mg/dL (NEGATIVE) 05/03/17 14:12 Urine Glucose (UA) Normal mg/dL (Normal) 05/03/17 14:12 Urine Ketones Negative mg/dL (NEGATIVE) 05/03/17 14:12 Urine Blood Negative (NEGATIVE) 05/03/17 14:12 Urine Nitrate Negative (NEGATIVE) 05/03/17 14:12 Urine Bilirubin Negative (NEGATIVE) 05/03/17 14:12 Urine Urobilinogen Normal mg/dL (0.2-1.0) 05/03/17 14:12 Ur Leukocyte Esterase Neg Cristopher/uL (Negative) 05/03/17 14:12 Urine WBC (Auto) 2 /hpf (0-5) 05/03/17 14:12 Urine RBC (Auto) < 1 /hpf (0-3) 05/03/17 14:12 Ur Squamous Epith Cells < 1 /hpf (0-5) 05/03/17 14:12 Urine Bacteria Rare (<OCC) 05/03/17 14:12 Hyaline Casts 3-5 /lpf (0-2) H 05/03/17 14:12 HIV 1&2 Antibody Screen Negative (NEGATIVE) 05/04/17 06:04 Influenza Typ A,B (EIA) Pos for influenza a (NEGATIVE) H 05/03/17 15:31 H.influenzae Type B Ag Not required (NEGATIVE) 05/04/17 00:06 Ur L.pneumophila Ag Negative (NEGATIVE) 05/03/17 00:06 Mycoplasma pneumon IgM Negative (NEGATIVE) 05/03/17 16:50 N.meningitidis ACY/W135 Not required (NEGATIVE) 05/04/17 00:06 N.meningi B/E.coli K1 Ag Not required (NEGATIVE) 05/04/17 00:06 Group B Strep Antigen Not required (NEGATIVE) 05/04/17 00:06 S. pneumoniae Antigen Negative (NEGATIVE) 05/04/17 00:06 - Hospital Course Hospital Course: As per admission documentation, Patient seen and examined at bedside in the emergency room. Patient has a past medical history of breast cancer with mets to the liver, lumbar/thoracic spine and lungs. Patient was recently discharged from the hospital 3 days ago when she was here for evaluation of back pain. She has been taking percocet for the pain. Patient is well aware of her disease and planning on starting chemo with Dr. Israel on 05/06/17. Patient states that after she was discharged, she started to have a productive cough two days ago, with yellow phlegm. Nothing makes the cough better or worse. She states that last night she started to become diaphoretic and experienced chills. She was able to fall asleep but when she woke up she noticed she was a little bit nauseous. The nausea got progressively worse and she vomited bile this morning. Patient states that she experiences some pleuric chest pain substernally but only experiences when she coughs. Patient has not had a bowel movement since Wednesday (3 days ago), which is not normal for her (usually once per day). Patient denies any diarrhea, shortness of breath, numbness, tingling, vision changes and rhinorrhea. Hospital Course, Discharge Instructions, Patient is to be discharged home per Dr. Gill. Patient is to follow up with her primary care physician upon discharge. If patient does not have a primary care physician, patient is to follow up in the neighborhood clinic located in the basement of [facility]. Patient is to follow up with Dr. Israel within one week of being discharged. If any new or worsening symptoms, please call or go to nearest emergency room. Prescriptions given: Tamiflu 75mg PO BID Disp #4 cap Simethicone 80mg PO q6h PRN for excessive gas Disp 30 Discharge Exam - Head Exam Head Exam: ATRAUMATIC, NORMOCEPHALIC - Eye Exam Eye Exam: EOMI, Normal appearance - ENT Exam ENT Exam: Mucous Membranes Moist - Respiratory Exam Respiratory Exam: Clear to PA & Lateral, NORMAL BREATHING PATTERN, UNREMARKABLE. absent: Accessory Muscle Use, Rales, Rhonchi, Wheezes, Respiratory Distress - Cardiovascular Exam Cardiovascular Exam: REGULAR RHYTHM, +S1. absent: JVD - GI/Abdominal Exam GI & Abdominal Exam: Normal Bowel Sounds, Soft, Unremarkable. absent: Distended , Firm, Guarding, Hernia, Rebound, Rigid, Tenderness - Extremities Exam Extremities exam: normal inspection, pedal pulses present - Neurological Exam Neurological exam: Alert, CN II-XII Intact, Oriented x3 - Psychiatric Exam Psychiatric exam: Normal Affect, Normal Mood - Skin Skin Exam: Dry, Intact, Warm Discharge Plan - Discharge Medications Prescriptions: Oseltamivir [Tamiflu Cap] 75 mg PO BID #4 cap Simethicone [Mylicon Chew Tab] 80 mg PO Q6H PRN #30 chew PRN Reason: excessive gas - Follow Up Plan Condition: STABLE Disposition: HOME/ ROUTINE Instructions: Simethicone (By mouth), Oseltamivir (By mouth), Viral Pneumonia ( [place]), Breast Cancer in Women (DC), Influenza (DC) Additional Instructions: Patient is to be discharged home per Dr. Gill. Patient is to follow up with her primary care physician upon discharge. If patient does not have a primary care physician, patient is to follow up in the [facility] located in the [facility]. Patient is to follow up with Dr. Israel within one week of being discharged. If any new or worsening symptoms, please call or go to nearest emergency room. Prescriptions given: Tamiflu 75mg PO BID Disp #4 cap Simethicone 80mg PO q6h PRN for excessive gas Disp [address]: [facility] [Outside] Dimitris Israel MD [Staff Provider] - 1 Week
[2017-05-06 16:05] VITALS: BP 128/79; PULSE 63; TEMP 97.6; O2SAT 96
== END 2017-05-06 18:40 | disposition home or self-care (01) | DRG 68 ==
LOC: C.ER 12:03 → C.9E 14:57 → C.3T 16:25 → C.9E 16:34 → C.3T 17:30 → C.5S 05-04 13:39 → OBSVTOIN 05-06 10:35
PROVIDERS: ADMIT Hospitalist; ATTEND Hospitalist
DX: J10.1 Influenza due to other identified influenza virus with other respiratory manifestations (principal); C78.00 Secondary malignant neoplasm of unspecified lung; C78.7 Secondary malignant neoplasm of liver and intrahepatic bile duct; C79.51 Secondary malignant neoplasm of bone; C50.919 Malignant neoplasm of unspecified site of unspecified female breast; I10 Essential (primary) hypertension; J40 Bronchitis, not specified as acute or chronic; K21.9 Gastro-esophageal reflux disease without esophagitis; K59.00 Constipation, unspecified; Z90.49 Acquired absence of other specified parts of digestive tract

== ENCOUNTER 2017-05-24 10:30 | Day surgery (SDC) | payer OTHER ==
[2017-05-24] MEDS ORDERED: Midazolam 2 MG/2 ML VIAL ONE ×2 (11:56)
[2017-05-24] MEDS ORDERED: Propofol 10 mg/ml Inj (20 ML) ONE (11:57)
[2017-05-24] MEDS ORDERED: Lidocaine 2% Inj (20ml) ONE (12:04)
[2017-05-24] MEDS ORDERED: Lidocaine 1% w Epi 1:100,000 Inj ONE ×2 (12:04)
--- NOTE | 2017-05-24 12:36 | CP.SDSHP ---
Same Day Surgery H & P - History Proposed Procedure: Port placement Pre-Op Diagnosis: Breast cancer - Allergies Allergies: Allergies cefepime [From Maxipime] Allergy (Verified 05/03/17 12:18) REDNESS honey Allergy (Verified 05/03/17 12:18) octopus Allergy (Verified 05/03/17 12:18) ANAPHYLAXIS docetaxel Adverse Reaction (Verified 05/03/17 12:18) SEVERE LOW BACK PAIN; RESPIRATORY DISTRESS - Physical Exam Mental Status: Alert & Oriented x3 Neuro: WNL - Impression Impression: Pt with left breast cancer refered for port placement. Plan right IJV port. Informed consent obtained. Pt. Evaluated Today:Candidate for Anesthesia & Procedure: Yes (ASA 3 Malampati 3) Short Stay Discharge - Short Stay Discharge Admitting Diagnosis/Reason for Visit: BREAST CA
--- NOTE | 2017-05-24 12:37 | PCM.SURG1 ---
Surgeon's Initial Post Op Note - Surgeon's Notes Surgeon: Alfonso Lazo MD Housing Court Judge: NONE Type of Anesthesia: IV Sedation Pre-Operative Diagnosis: Breast cancer Operative Findings: US showed a patent right IJV. Post-Operative Diagnosis: Breast cancer Operation Performed: Port placement right IJV. Tip of catheter is in the IVC. Specimen/Specimens Removed: none Estimated Blood Loss: EBL {In ML}: 5 Blood Products Given: N/A Drains Used: No Drains Post-Op Condition: Fair Date of Surgery/Procedure: 05/24/17 Time of Surgery/Procedure: 12:35
--- NOTE | 2017-05-24 13:52 | SPECPROC ---
PROCEDURE: Date of procedure: 05/24/2017 Procedure: 1. Placement of a right IJ port catheter with ultrasound and fluoroscopic guidance, CPT 06002 2. Catheter tip confirmation with spot radiograph in the superior vena cava. Medications: The patient was sedated anesthesiologist along with monitoring, Ancef 1 gm, Lidocaine 1% w Epinephrine Fluoroscopic time: 4.1 seconds Radiation: 0.98 mGy Blood loss: 5 cc HISTORY: Breast cancer requiring port for chemotherapy TECHNIQUE: Following informed consent the procedure time-out, patient was placed supine on the interventional table and the right neck and chest were prepped and draped in the usual sterile fashion. Ultrasound showed a compressible right internal jugular vein. After the patient was sedated by the anesthesiologist, the skin anesthetized with 1% lidocaine with epinephrine. Under direct ultrasound guidance, the right internal jugular vein was accessed with micropuncture technique. A guidewire was then advanced under fluoroscopic guidance into the superior vena cava. An image documenting ultrasound guidance for vascular access was permanently saved. The subcutaneous tissue of patient right chest was infiltrated with 1 percent lidocaine with epinephrine. A dermatotomy was made with a 15. Scalpel. The port pocket was then created with blunt dissection using a Britney clamp. The port pocket was flushed. A port catheter was then tunneled under the skin and out the venotomy site. The port catheter was flushed, advanced through a peel-away sheath, adjusted for length, and attached to the port. The port was placed in the port pocket and was secured with 2-0 SurgiPro sutures. The port was flushed and locked with heparin. The port pocket was then closed with absorbable 4-0 Polysorb sutures. The port pocket and the venotomy site were reprepped with ChloraPrep. Steri-Strips were then applied to the port incision also venotomy site. A sterile dressing was then applied. Final spot radiograph showed the right IJ port catheter with tip of the port catheter in the superior vena cava. A port is functional and ready for use. IMPRESSION: Placement of right IJ port catheter. The tip of the port is in the superior vena cava.
== END 2017-05-24 13:45 | disposition home or self-care (01) ==
LOC: C.SPRAD 10:30
PROVIDERS: ATTEND Radiology Vascular & Interventional Radiology
DX: C50.919 Malignant neoplasm of unspecified site of unspecified female breast (principal)
CPT/HCPCS: 36561; J2250; J2405; J2704

== ENCOUNTER 2017-08-15 11:24 | Emergency (ER) | payer SELFPAY ==
[2017-08-15 11:24] VITALS: BMI 27.8
[2017-08-15] MEDS ORDERED: Sodium Chloride 0.9% 1,000 ML IV STA (11:59)
--- NOTE | 2017-08-15 12:02 | C.PDOC ---
History Of Present Illness 62 year old female, with PMHx of breast CA on chemotherapy (, Wednesday) for the past few months, presents to ED for evaluation of intermittent dizziness , and generalized weakness since last chemotherapy 2 days ago. Dizziness is described as room-spinning sensation, which is worse when laying down and better when sitting up, with associated ringing in the ears. Pt complains of nausea and diarrhea for the last 2 days as well. Also complains of redness to her face which developed yesterday and has resolved. Denies vomiting, fever, or any other complaints at this time. Oncologist: Dr. Dimitris Israel Time Seen by Provider: 08/15/17 11:44 Chief Complaint (Nursing): Dizziness/Lightheaded History Per: Patient, Family History/Exam Limitations: no limitations Past Medical History Reviewed: Historical Data, Nursing Documentation, Vital Signs Vital Signs: Last Vital Signs Temp 98.2 F 08/15/17 11:30 Pulse 92 H 08/15/17 11:30 Resp 20 08/15/17 11:30 BP 186/105 H 08/15/17 11:30 Pulse Ox 98 08/15/17 13:09 - Medical History PMH: Arthritis (KNEE, BACK), Bronchitis, HTN Denies: End Stage Renal Disease, Chronic Kidney Disease Surgical History: Appendectomy - [facility] Procedures DRAINAGE OF LEFT PLEURAL CAVITY, PERCUTANEOUS APPROACH (10/22/16) EXCISION OF RIGHT LOBE LIVER, PERCUTANEOUS APPROACH, DIAGN (06/15/16) Family History: States: Unknown Family Hx - Social History Hx Alcohol Use: No Hx Substance Use: No - Immunization History Hx Tetanus Toxoid Vaccination: No Hx Influenza Vaccination: No Hx Pneumococcal Vaccination: No Review Of Systems Except As Marked, All Systems Reviewed And Found Negative. Constitutional: Positive for: Weakness. Negative for: Fever, Chills Cardiovascular: Negative for: Chest Pain, Palpitations Gastrointestinal: Positive for: Nausea, Diarrhea. Negative for: Vomiting, Abdominal Pain Neurological: Positive for: Dizziness. Negative for: Weakness, Numbness, Headache Physical Exam - Physical Exam Additional Physical Exam Comments: Constitutional: No acute distress. Head: Normocephalic. Atraumatic. Eyes: PERRL. ENT: Moist mucous membranes. Normal Ear exam. Neck: Supple. Cardiovascular: Regular rate. Radial pulse 2+ bilaterally. Chest: No tenderness. Respiratory: Clear to auscultation bilaterally. GI: Soft. Nontender. Nondistended. Back: No CVA tenderness. Musculoskeletal: No tenderness or swelling of extremities. Skin: No rash. Neurologic: Alert, no focal deficit. Moving all extremities. ED Course And Treatment - Laboratory Results Result Diagrams: 08/15/17 12:28 08/15/17 12:28 O2 Sat by Pulse Oximetry: 98 Medical Decision Making Medical Decision Making: EKG: Normal sinus rhythm at 78bpm. No acute ST/T wave changes. CXR no consolidation. Patient feels better after hydration. No episodes of vertigo. Will discharge home, f/u Dr. Israel, return to ED for worsening pain, dyspnea, vomiting, weakness, or any other problem. Disposition - Disposition Referrals: Dimitris Israel MD [Staff Provider] - Disposition: HOME/ ROUTINE Disposition Time: 13:09 Condition: STABLE Instructions: Chemotherapy, Weakness (ED) Forms: [facility] (Korean) - Clinical Impression Clinical Impression: General weakness - Scribe Statement The provider has reviewed the documentation as recorded by the Scribyvonne García All medical record entries made by the Scribe were at my direction and personally dictated by me. I have reviewed the chart and agree that the record accurately reflects my personal performance of the history, physical exam, medical decision making, and the department course for this patient. I have also personally directed, reviewed, and agree with the discharge instructions and disposition.
[2017-08-15] MEDS ORDERED: Sodium Chloride 0.9% 1,000 ML ONE (12:07)
[2017-08-15 12:33] LABS: BASO % 0.8 % (0.0-2.0); HEMOGLOBIN 11.9 g/dL (11.0-16.0); LYMPH # 0.7 K/uL (1.0-4.3); LYMPH % 16.2 % (20.0-40.0); MEAN CELL VOLUME 88.3 fL (81.0-99.0); MEAN CORPUSCULAR HEMOGLOBIN 29.8 pg (27.0-31.0); MEAN CORPUSCULAR HGB CONC 33.8 g/dL (33.0-37.0); MEAN PLATELET VOLUME 8.7 fL (7.2-11.7); MONO # 0.1 K/uL (0.0-0.8); MONO % 2.8 % (0.0-10.0); NEUT # 3.3 K/uL (1.8-7.0); NEUT % 79.2 % (50.0-75.0); NRBC % 0.2 % (0.0-2.0); RBC 3.98 Mil/uL (3.80-5.20); RED CELL DISTRIBUTION WIDTH 16.5 % (11.5-14.5); WHITE BLOOD COUNT 4.1 K/uL (4.8-10.8)
[2017-08-15 12:55] LABS: ALBUMIN 3.8 g/dL (3.5-5.0); ALT/SGPT 36 U/L (9-52); AST/SGOT 48 U/L (14-36); BLOOD UREA NITROGEN 18 mg/dL (7-17); CALCIUM 8.8 mg/dl (8.6-10.4); GFR AFRICAN-AMERICAN > 60; GFR NON-AFRICAN AMERICAN > 60; LIPASE 151 U/L (23-300)
[2017-08-15 13:01] LABS: URINE BILIRUBIN NEGATIVE (NEGATIVE); URINE BLOOD NEGATIVE (NEGATIVE); URINE CLARITY Clear (Clear); URINE COLOR Colorless (YELLOW); URINE GLUCOSE (UA) NORMAL (Normal); URINE LEUKOCYTE ESTERASE NEG Leu/uL (Negative); URINE PROTEIN NEGATIVE (NEGATIVE); URINE UROBILINOGEN NORMAL mg/dL (0.2-1.0)
[2017-08-15 14:10] VITALS: BP 150/89; PULSE 85; RESP 18; TEMP 98; O2SAT 99
--- NOTE | 2017-08-15 17:27 | RAD ---
Chest x-ray single frontal view History: Lightheaded. Comparison: 05/05/2017 Findings: Small left pleural effusion with blunted left costophrenic angle. Patchy increased markings in the left mid to lower lung zone. Mild diffuse increased interstitial lung markings ; left greater than right. Biapical pleural thickening with upper lobe granulomatous changes. Right chest wall port with tip extending into the right SVC. Tortuous aorta. Degenerative changes in the spine and shoulders. Impression: Small left pleural effusion with blunted left costophrenic angle. Patchy increased markings in the left mid to lower lung zone. Mild diffuse increased interstitial lung markings ; left greater than right. Biapical pleural thickening with upper lobe granulomatous changes. Right chest wall port with tip extending into the right SVC.
--- NOTE | 2017-08-17 19:29 | CARD ---
APPROVED REPORT EKG Measurement Heart [id number] <Conclusion> Normal sinus rhythm with sinus arrhythmia Nonspecific ST and T wave abnormality Abnormal ECG
== END 2017-08-15 14:19 | disposition home or self-care (01) ==
LOC: C.ER 11:24
DX: R53.1 Weakness (principal); I10 Essential (primary) hypertension; Z85.3 Personal history of malignant neoplasm of breast
CPT/HCPCS: 71045; 80053; 81001; 83690; 85025; 87086; 93005; 96360; 99285; J7040